=== PATIENT | male | born 1955 | race Hispanic/Latino ===

== ENCOUNTER 2020-08-28 17:39 | Inpatient (IN) | payer BC ==
[~2020-08-28 17:39] MED LIST: Iopamidol-370 76% 500 ML 1 ML ONE; PROPOFOL 200 MG/20 ML VIAL ONE; Rocuronium Bromide 10 MG/ML (10ML VIAL) ONE; Succinylcholine 200 MG/10 ml SYRINGE FS ONE
--- NOTE | 2020-08-28 19:28 | RAD ---
Frontal radiograph chest: 08/28/2020 COMPARISON: None HISTORY: Pain FINDINGS: There is groundglass opacity within the mid right lung zone/right perihilar region and with in both lung bases. Findings are suspicious for Covid pneumonia in the proper clinical setting. No pneumothorax, large volume pleural effusion, or focal consolidation. IMPRESSION: Ground glass opacity as above.
[2020-08-28 19:37] LABS: #Basophils 0.1 thou/uL (0.0-0.2); #Lymphocytes 0.7 thou/uL (1.20-3.40); #Monocytes 0.4 thou/uL (0.11-0.59); #Neutrophils 5.1 thou/uL (1.40-6.50); %Basophils 0.9 % (0.0-1.0); %Lymphocytes 11.7 % (21.0-51.0); %Monocytes 6.4 % (0.0-10.0); %Neutrophils 81.1 % (42.0-75.0); Hemoglobin 15.3 g/dL (14.0-18.0); Mean Corpuscular HGB CONC 34.1 g/dL (32.0-36.0); Mean Corpuscular Volume 91.1 fL (78.0-98.0); Mean Platelet Volume 9.8 fL (7.4-10.4); Platelet Count 135 thou/uL (130-400); RBC Distribution Width 13.3 % (11.5-14.5); Red Blood Cell (RBC) Count 4.92 mill/uL (4.70-6.10); White Blood Cell (WBC) Count 6.2 thou/uL (4.8-10.8)
[2020-08-28] MEDS ORDERED: cefTRIAXone\\ROCEPHIN 1 GM VIAL ONE (19:53)
[2020-08-28] MEDS ORDERED: Dexamethasone 4 mg/ml Vial ONE (19:53)
[2020-08-28 19:54] LABS: ALT (SGPT) 56 U/L (8-55); AST (SGOT) 72 U/L (5-34); Albumin 3.7 g/dL (3.4-4.8); Alkaline Phosphatase 79 U/L (40-110); Anion Gap 17 mmol/L (10-20); BUN (Urea Nitrogen) 23 mg/dL (8.4-25.7); Bilirubin, Total 0.7 mg/dL (0.2-1.2); Calc. Creatinine Clearance 0 mL/min (70-130); Calcium 8.6 mg/dL (7.8-10.44); Carbon Dioxide 27 mmol/L (23-31); Chloride 97 mmol/L (98-107); Globulin 3.4 g/dL (2.4-3.5); Glucose 267 mg/dL (80-115); Potassium 4.8 mmol/L (3.5-5.1); Protein, Total 7.1 g/dL (5.8-8.1); Sodium 136 mmol/L (136-145)
[2020-08-28 20:05] LABS: INR-International Normal Ratio 0.9; Prothrombin Time 12.6 sec (12.0-14.7)
[2020-08-28 20:06] LABS: PTT 33.9 sec (22.9-36.1)
[2020-08-28] MEDS ORDERED: Azithromycin 500 MG VIAL ONE (20:10)
--- NOTE | 2020-08-28 21:40 | CT ---
CT angiogram chest: 08/28/2020 COMPARISON: None HISTORY: Findings suspicious for Covid pneumonia on chest x-ray, dyspnea TECHNIQUE: Axial CT imaging at 2.5 mm intervals through the chest with IV contrast using CT angiogram protocol. Coronal and sagittal 3-D reformatted imaging obtained. FINDINGS: The visualized upper abdomen appears grossly unremarkable. No pleural, pericardial, or medi astinal fluid is seen. There is no significant mediastinal or hilar lymphadenopathy. No evidence for acute pulmonary arterial embolism. Extensive confluence areas of groundglass opacity noted bilaterally including the bilateral lower lob es, bilateral upper lobes, and the right middle lobe. Superimposed multi focal reticulonodular density is noted within bilateral upper lobes, right greater than left. There is no endobronchial lesion evident. Review of the osseous structures demonstrates no worrisome lytic or blastic bone lesions. IMPRESSION: No evidence for pulmonary arterial embolism. Extensive bilateral groundglass opacity, suspicious for extensive bilateral Covid pneumonia. In addit ion, there are reticulonodular densities within bilateral upper lobes, right greater than left, suspicious for atypical infectious pneumonitis but not typical of Covid pneumonia. This could signify additional superimposed bilateral upper lobe infectious pneumonitis, including atypical bacterial infection, fungal infection, etc. Metastatic disease is not fully excluded but unlikely given distrib ution. Recommend short-term follow-up imaging of the chest following treatment to document resolution.
[2020-08-28] MEDS ORDERED: Labetalol HCl 100 MG/20 ML VIAL SLOW IVP PRN (21:56)
[2020-08-28] MEDS ORDERED: cloNIDine 0.1 MG TAB PO PRN (21:56)
[2020-08-28] MEDS ORDERED: Ondansetron PF 4 MG/2 ML Vial IVP PRN (21:56)
[2020-08-28] MEDS ORDERED: Acetaminophen 325 MG TAB PO PRN (21:56)
[2020-08-28] MEDS ORDERED: Promethazine HCl 12.5 MG in Sodium Chloride 0.9% 50 ML IVPB PRN (21:56)
[2020-08-28] MEDS ORDERED: hydrALAZINE 20 MG/ML VIAL SLOW IVP PRN (21:56)
[2020-08-28] MEDS ORDERED: Electrolyte Replacement Protocol 1 EACH FS PRN (22:00)
--- NOTE | 2020-08-28 22:00 | PDOC.HHP ---
Hospitalist HPI - History of Present Illness Shortness of breath History of Present Illness: Patient is a 65 year old male with PMH of DM, HTN who presents for cough, shortness of breath, weakness, body aches. Symptoms started 5 days ago, patient went to visit his mother w/ covid last Thursday then developed symptoms on Thursday, was diagnosed w/ covid then. He had cough, and has developed worsening shortness of breath w exertion and now at rest. Has been checking his oxygen at home and states that it was in the 70s. No nausea, vomiting, diarrhea. Also has loss of taste and smell. No history of blood clots. Does not smoke. In ED, WBC 6.2, Cr 1.45, glucose 267, CXR w/ ground glass opacities concerning for covid, CTA w/ similar findings and repeat imaging at follow up recommended.patinet admitted for further workup and care. Hospitalist ROS - Review of Systems Constitutional: reports: fever, chills, sweats, weakness, malaise Eyes: denies: pain, vision change, conjunctivae inflammation, eyelid inflammatio n, redness, other ENT: denies: ear pain, ear discharge, nose pain, nose discharge, nose congestion, mouth pain, mouth swelling, throat pain, throat swelling, other Respiratory: reports: cough, shortness of breath. denies: dry, hemoptysis, SOB with excertion, pleuritic pain, sputum, wheezing, other Cardiovascular: denies: chest pain, palpitations, orthopnea, paroxysmal noc. dyspnea, edema, light headedness, other Gastrointestinal: denies: nausea, vomiting, abdominal pain, diarrhea, constipation, melena, hematochezia, other Genitourinary: denies: dysuria, frequency, incontinence, hematuria, retention, other Musculoskeletal: denies: neck pain, shoulder pain, arm pain, back pain, hand pain, leg pain, foot pain, other Skin: denies: rash, lesions, anika, bruising, other Neurological: denies: weakness, numbness, incoordination, change in speech, confusion, seizures, other All other systems reviewed; all pertinent +/- noted in HPI/Subj - Medication Medications: glimepiride tablet : Strength - 4 mg : ORAL Patient Dose: 2 times a day. lisinopril tablet : Strength - 10 mg : ORAL Patient Dose: once a day. Hospitalist History - Past Medical History Other Medical History: HTN, DM - Past Surgical History Past Surgical History: reports: no pertinent history - Family History Family History: reports: no pertinent history - Social History Smoking Status: Never smoker Alcohol: reports: None Drugs: reports: none - Exam General Appearance: NAD, awake alert Eye: PERRL, anicteric sclera ENT: normocephalic atraumatic, no oropharyngeal lesions, moist mucosa Neck: supple, symmetric, no JVD, no thyromegaly, no lymphadenopathy, no carotid bruit Heart: RRR, no murmur, no gallops, no rubs, normal peripheral pulses Respiratory: CTAB, no wheezes, no rales, no ronchi, normal chest expansion, no tachypnea, normal percussion Gastrointestinal: soft, non-tender, non-distended, normal bowel sounds, no palpable masses, no hepatomegaly, no splenomegaly, no bruit Extremities: no cyanosis, no clubbing, no edema Skin: normal turgor, no lesions, no rashes Neurological: cranial nerve grossly intact, normal sensation to touch, no weakness, no focal deficits, no new deficit Musculoskeletal: normal tone, normal strength, no muscle wasting Psychiatric: normal affect, normal behavior, A&O x 3 Hospitalist Results - Labs Result Diagrams: 08/28/20 19:06 08/28/20 19:06 Lab results: WBC 6.2 thou/uL (4.8-10.8) 08/28/20 19:06 Hgb 15.3 g/dL (14.0-18.0) 08/28/20 19:06 Hct 44.8 % (42.0-52.0) 08/28/20 19:06 MCV 91.1 fL (78.0-98.0) 08/28/20 19:06 Plt Count 135 thou/uL (130-400) 08/28/20 19:06 Neutrophils % 81.1 % (42.0-75.0) H 08/28/20 19:06 Sodium 136 mmol/L (136-145) 08/28/20 19:06 Potassium 4.8 mmol/L (3.5-5.1) 08/28/20 19:06 Chloride 97 mmol/L (98-107) L 08/28/20 19:06 Carbon Dioxide 27 mmol/L (23-31) 08/28/20 19:06 BUN 23 mg/dL (8.4-25.7) 08/28/20 19:06 Creatinine 1.45 mg/dL (0.7-1.3) H 08/28/20 19:06 Glucose 267 mg/dL (80-115) H 08/28/20 19:06 Lactic Acid 1.6 mmol/L (0.5-2.2) 08/28/20 19:48 Calcium 8.6 mg/dL (7.8-10.44) 08/28/20 19:06 Total Bilirubin 0.7 mg/dL (0.2-1.2) 08/28/20 19:06 AST 72 U/L (5-34) H 08/28/20 19:06 ALT 56 U/L (8-55) H 08/28/20 19:06 Alkaline Phosphatase 79 U/L (40-110) 08/28/20 19:06 Troponin I Less than 0.010 ng/mL (< 0.028) 08/28/20 19:06 Serum Total Protein 7.1 g/dL (5.8-8.1) 08/28/20 19:06 Albumin 3.7 g/dL (3.4-4.8) 08/28/20 19:06 Additional comment: VITAL SIGNS ThuAug 28, 2020 17:40 АЛЕКСАНДР Estrella, Mirlande BP: 140/73 Pulse: 112 Resp: 26 Temp: 99.3 (Oral) Pain: 5 O2 sat: 82 on (Room Air) Time: 08/28/2020 17:40. labs, imaging reports, ED documents reviewed Hospitalist H&P A/P - Plan Plan: Patient is a 65 year old male with PMH of DM, HTN who presents for cough, shortness of breath, weakness, body aches. # COVD 19 pneumonia # hypoxia symptoms x 5 days, SOB, cough, hypoxia to 70s on room air. - admit to floor - steroids, abx, monitor closely - ID consult to consider remdesivir - recommend repeat imaging as outpatient # YA - unknown baseline, trend Cr and treat if worsening # DM - not in insulin at home - ssi # DVT/GI ppx full code
[2020-08-28] MEDS ORDERED: Dextrose 50% Abboject 50 ML SYRINGE SLOW IVP PRN (22:33)
[2020-08-28] MEDS ORDERED: Dextrose 5% in Water 1,000 ML IV PRN (22:33)
[2020-08-29] MEDS: Guaifenesin DM 100-10/5 ML UDCUP PO PRN ×2 (00:31→22:55)
[2020-08-29] MEDS: Albuterol 200 PUFF (6.7GM INHALER) INH PRN ×2 (00:32→22:56)
[2020-08-29 05:54] LABS: #Lymphocytes 0.9 thou/uL (1.20-3.40); #Monocytes 0.2 thou/uL (0.11-0.59); #Neutrophils 3.4 thou/uL (1.40-6.50); %Eosinophils 0.1 % (0.0-10.0); %Lymphocytes 19.4 % (21.0-51.0); %Monocytes 3.9 % (0.0-10.0); %Neutrophils 76.7 % (42.0-75.0); Hemoglobin 14.2 g/dL (14.0-18.0); Mean Corpuscular HGB CONC 31.3 g/dL (32.0-36.0); Mean Corpuscular Hemoglobin 28.6 pg (27.0-31.0); Mean Corpuscular Volume 91.2 fL (78.0-98.0); Mean Platelet Volume 9.5 fL (7.4-10.4); Platelet Count 152 thou/uL (130-400); RBC Distribution Width 13.4 % (11.5-14.5); Red Blood Cell (RBC) Count 4.97 mill/uL (4.70-6.10); White Blood Cell (WBC) Count 4.4 thou/uL (4.8-10.8)
[2020-08-29] MEDS: HumaLOG 300 UNITS/3 ML VIAL SC PRN ×2 (06:03→11:08)
[2020-08-29 06:07] LABS: Anion Gap 17 mmol/L (10-20); BUN (Urea Nitrogen) 23 mg/dL (8.4-25.7); Calc. Creatinine Clearance 74 mL/min (70-130); Calcium 7.9 mg/dL (7.8-10.44); Carbon Dioxide 20 mmol/L (23-31); Chloride 101 mmol/L (98-107); Glucose 334 mg/dL (80-115); Magnesium 2.2 mg/dL (1.6-2.6); Sodium 133 mmol/L (136-145)
[2020-08-29] MEDS: Famotidine 20 MG TAB PO SCH ×2 (08:32→20:48)
[2020-08-29] MEDS ORDERED: REMDESIVIR (EUA) 200 MG in Sodium Chloride 0.9% 250 ML 210 ML IV SCH (15:15)
--- NOTE | 2020-08-29 15:21 | PDOC.HOSPP ---
- Subjective Encounter Date: 08/29/20 Encounter Time: 07:00 Subjective: Patient seen for follow-up regarding acute hypoxic respiratory failure. He denies chest pain. Reports shortness of breath with exertion. - Objective Vital Signs & Weight: Vital Signs (12 hours) Temp Pulse Resp BP Pulse Ox 08/29/20 11:00 98.4 F 84 18 133/71 96 08/29/20 08:45 98.4 F 86 20 120/65 90 L Weight Weight 194 lb 12.8 oz Result Diagrams: 08/29/20 05:18 08/29/20 05:18 Additional Labs: Accuchecks 08/29/20 08/29/20 10:33 05:36 POC Glucose 303 H 315 H Hospitalist ROS - Review of Systems Respiratory: reports: cough, dry, SOB with excertion. denies: shortness of breath, hemoptysis, pleuritic pain, sputum, wheezing Cardiovascular: denies: chest pain, palpitations, orthopnea, paroxysmal noc. dyspnea, edema, light headedness - Medication Medications: Active Medications Generic Name Dose Route Start Last Admin Trade Name Freq PRN Reason Stop Dose Admin Albuterol Sulfate 1 puff 08/28/20 22:48 08/29/20 00:32 Albuterol 200 Puff (6.7gm Inhaler) INH 1 puff Q4H PRN Administration SOB &/or Wheezing Famotidine 20 mg 08/29/20 09:00 08/29/20 08:32 Famotidine 20 Mg Tab PO 20 mg BID INGRID Administration Guaifenesin/Dextromethorphan 15 ml 08/28/20 21:56 08/29/20 00:31 Guaifenesin Dm 100-10/5 Ml Udcup PO 15 ml Q4H PRN Administration Cough Insulin Human Lispro 0 units 08/28/20 22:33 08/29/20 11:08 Humalog 300 Units/3 Ml Vial SC 5 unit .MILD SLIDING SCALE PRN Administration Mild Correctional Scale - Exam General Appearance: awake alert Eye: anicteric sclera ENT: moist mucosa Neck: supple Heart: RRR Respiratory: rhonchi Gastrointestinal: soft, non-tender Skin: no rashes Psychiatric: normal affect, normal behavior Hosp A/P - Plan - Plan Plan: Patient is a 65 year old male with PMH of DM, HTN who presents for cough, shortness of breath, weakness, body aches. # COVD 19 pneumonia #Acute hypoxic respiratory failure. - steroids, abx, monitor closely - pharm consult to consider remdesivir # YA - follow creatinine and lytes # DM - insulin sliding scale # DVT/GI ppx full code
[2020-08-29] MEDS ORDERED: Zinc Sulfate 220 MG CAP PO SCH (17:15)
[2020-08-29] MEDS ORDERED: HumaLOG 300 UNITS/3 ML VIAL SC SCH (17:15)
[2020-08-29] MEDS ORDERED: Ascorbic Acid 500 mg Chewable Tablet PO SCH (17:15)
--- NOTE | 2020-08-29 19:13 | CON ---
DATE OF CONSULTATION: 08/29/2020 REASON FOR CONSULT: COVID pneumonia. HISTORY OF PRESENT ILLNESS: A 65-year-old gentleman who has a history of type 2 diabetes, hypertension, and tested positive for COVID on Thursday last week. At that time, he was asymptomatic and he was tested because of exposure history. Two days later on Thursday, he started having cough and respiratory symptoms. Subsequently on the day of admission, he checked his O2 saturations. There were like in the 70s and he came in and was admitted. Currently, he is in the COVID observation unit. He denies headaches. No sore throat. Feeling better now. Can take deeper breaths and less cough. No abdominal pain, no diarrhea, no genitourinary symptoms. No neurological symptoms. PAST MEDICAL HISTORY: Diabetes and hypertension. ALLERGIES: NONE. MEDICATIONS: He was taking glimepiride, lisinopril. Here, he is on Decadron and azithromycin and some p.r.n. medications labetalol, etc., inhalers. FAMILY HISTORY: Diabetes type 2. SOCIAL HISTORY: Retired from [employer]. Never smoker. . got COVID but mild course thus far. PHYSICAL EXAMINATION: VITAL SIGNS: T-max 100, BP 130/71, heart rate 84, respiratory rate 18, O2 saturation 97 when I saw him at 6 L nasal cannula O2. GENERAL: He does not appear in distress. His is able to speak in full sentences. Voiding spontaneously in the toilet. SKIN: Normal. Peripheral IV access. No lymphadenopathy. HEENT: Ocular movements conjugate. Oral cavity normal. NECK: Supple. LUNGS: Few crackles at the bases. HEART: S1, S2. Regular rate. No S3 or S4. ABDOMEN: Soft, not distended or tender. No ascites. No bladder distention. No edema. EXTREMITIES: No joint inflammatory activity. Pulses 1+ in dorsalis pedis. Plantar responses are flexor. NEUROLOGIC: Cognitive function appears to be intact. LABORATORY DATA: Sodium 133, creatinine 1.26, which is improved from admission. Mild elevation in transaminases. Bilirubin normal. Albumin 3.7. D-dimer was 1.06. White cell count is 6.2 and 4.4 at this time. He is lymphocytopenic. His CT of chest showed quite diffuse ground-glass opacities throughout lung ramirez. ASSESSMENT: Type 2 diabetes and hypertension with moderate to severe COVID pneumonia. He is right at the 6th day of illness. I will go ahead and start remdesivir. He is a good candidate for it. Continue Decadron, discontinue azithromycin. Monitor markers every other day. His COTY score is 10.67, so he is in a safe range right now. Job ID: [id number] MTDD
[2020-08-29] MEDS: Enoxaparin Sodium 40 MG/0.4 ML SYRINGE SC SCH (20:48)
[2020-08-29] MEDS: Dexamethasone 4 mg/ml Vial SLOW IVP SCH (20:48)
[2020-08-29] MEDS: Insulin Glargine 10 UNITS in Pre-Filled Syringe SC SCH (20:49)
[2020-08-29] MEDS ORDERED: Azithromycin 500 MG in Sodium Chloride 0.9% 250 ML 250 ML IVPB SCH (21:00)
[2020-08-29] MEDS ORDERED: Azithromycin 500 MG in Syringe 0 ML IVPB SCH (21:00)
[2020-08-30 05:31] LABS: #Lymphocytes 0.7 thou/uL (1.20-3.40); #Monocytes 0.4 thou/uL (0.11-0.59); #Neutrophils 6.1 thou/uL (1.40-6.50); %Basophils 0.7 % (0.0-1.0); %Eosinophils 0.1 % (0.0-10.0); %Lymphocytes 9.4 % (21.0-51.0); Hemoglobin 14.4 g/dL (14.0-18.0); Mean Corpuscular HGB CONC 32.4 g/dL (32.0-36.0); Mean Corpuscular Hemoglobin 29.5 pg (27.0-31.0); Mean Platelet Volume 9.4 fL (7.4-10.4); Platelet Count 198 thou/uL (130-400); RBC Distribution Width 13.4 % (11.5-14.5); Red Blood Cell (RBC) Count 4.89 mill/uL (4.70-6.10); White Blood Cell (WBC) Count 7.3 thou/uL (4.8-10.8)
[2020-08-30 05:55] LABS: ALT (SGPT) 84 U/L (8-55); AST (SGOT) 78 U/L (5-34); Albumin 3.3 g/dL (3.4-4.8); Alkaline Phosphatase 73 U/L (40-110); Bilirubin, Direct 0.3 mg/dL (0.1-0.3); Bilirubin, Total 0.5 mg/dL (0.2-1.2); CRP (Inflammatory) 9.22 mg/dL (= or < 0.5); Protein, Total 6.4 g/dL (5.8-8.1)
[2020-08-30 05:56] LABS: Anion Gap 16 mmol/L (10-20); BUN (Urea Nitrogen) 28 mg/dL (8.4-25.7); Calc. Creatinine Clearance 75 mL/min (70-130); Calcium 8.4 mg/dL (7.8-10.44); Carbon Dioxide 25 mmol/L (23-31); Chloride 99 mmol/L (98-107); Glucose 299 mg/dL (80-115); Magnesium 2.3 mg/dL (1.6-2.6); Potassium 5.3 mmol/L (3.5-5.1); Sodium 135 mmol/L (136-145)
[2020-08-30] MEDS: HumaLOG 300 UNITS/3 ML VIAL SC PRN ×4 (06:20→21:39)
[2020-08-30] MEDS: Famotidine 20 MG TAB PO SCH (08:09)
[2020-08-30] MEDS: Ascorbic Acid 500 mg Chewable Tablet PO SCH (08:09)
[2020-08-30] MEDS: Zinc Sulfate 220 MG CAP PO SCH (08:10)
[2020-08-30] MEDS: REMDESIVIR (EUA) 100 MG in Sodium Chloride 0.9% 250 ML 230 ML IV SCH (16:54)
--- NOTE | 2020-08-30 17:08 | PDOC.HOSPP ---
- Subjective Encounter Date: 08/30/20 Encounter Time: 08:30 Subjective: Patient seen for follow-up regarding COVID-19 pneumonia. He denies chest pain. Reports shortness of breath is better. Reports cough. - Objective Vital Signs & Weight: Vital Signs (12 hours) Temp Pulse Resp BP Pulse Ox 08/30/20 15:30 98 F 83 20 109/56 L 91 L 08/30/20 11:32 98.4 F 96 138/79 91 L 08/30/20 08:15 98.5 F 92 20 132/73 92 L Weight Weight 194 lb 12.8 oz I&O: 08/29/20 08/30/20 08/31/20 06:59 06:59 06:59 Intake Total 1370 Balance 1370 Result Diagrams: 08/30/20 05:05 08/30/20 05:05 Additional Labs: Accuchecks 08/30/20 08/30/20 08/30/20 16:38 10:53 05:22 POC Glucose 258 H 310 H 256 H 08/29/20 20:32 POC Glucose 252 H I reviewed patient's labs and MAR EKG Reviewed by me: Yes (Normal sinus rhythm on telemetry) Hospitalist ROS - Review of Systems Respiratory: reports: cough, SOB with excertion, sputum. denies: dry, shortness of breath, hemoptysis, pleuritic pain, wheezing Cardiovascular: denies: chest pain, palpitations, paroxysmal noc. dyspnea, edema, light headedness - Medication Medications: Active Medications Generic Name Dose Route Start Last Admin Trade Name Freq PRN Reason Stop Dose Admin Albuterol Sulfate 1 puff 08/28/20 22:48 08/29/20 22:56 Albuterol 200 Puff (6.7gm Inhaler) INH 1 puff Q4H PRN Administration SOB &/or Wheezing Ascorbic Acid 1,000 mg 08/30/20 09:00 08/30/20 08:09 Ascorbic Acid 500 Mg Chewable Tablet PO 1,000 mg DAILY INGRID Administration Dexamethasone 6 mg 08/29/20 21:00 08/29/20 20:48 Dexamethasone 4 Mg/Ml Vial SLOW IVP 6 mg Q24H INGRID Administration Enoxaparin Sodium 40 mg 08/29/20 21:00 08/29/20 20:48 Enoxaparin Sodium 40 Mg/0.4 Ml Syringe SC 40 mg 2100 INGRID Administration Famotidine 20 mg 08/29/20 09:00 08/30/20 08:09 Famotidine 20 Mg Tab PO 20 mg BID INGRID Administration Guaifenesin/Dextromethorphan 15 ml 08/28/20 21:56 08/29/20 22:55 Guaifenesin Dm 100-10/5 Ml Udcup PO 15 ml Q4H PRN Administration Cough Remdesivir 100 mg/ Sodium 250 mls @ 250 mls/hr 08/30/20 16:00 08/30/20 16:54 Chloride IV 09/02/20 16:59 250 mls 1600 INGRID Administration Insulin Glargine 10 units/ 0.1 mls @ 0 mls/hr 08/29/20 21:00 08/29/20 20:49 Miscellaneous Medication SC 0.1 mls HS INGRID Administration Insulin Human Lispro 0 units 08/28/20 22:33 08/30/20 16:55 Humalog 300 Units/3 Ml Vial SC 4 unit .MILD SLIDING SCALE PRN Administration Mild Correctional Scale Zinc Sulfate 220 mg 08/30/20 09:00 08/30/20 08:10 Zinc Sulfate 220 Mg Cap PO 220 mg DAILY INGRID Administration - Exam General Appearance: awake alert ENT: normocephalic atraumatic Neck: supple Heart: RRR Respiratory: normal chest expansion, rhonchi Gastrointestinal: soft, non-tender Musculoskeletal: no muscle wasting Psychiatric: normal affect, normal behavior Hosp A/P - Plan - Plan # COVD 19 pneumonia #Acute hypoxic respiratory failure. -Continue dexamethasone, remdesivir, vitamin C and zinc. -Switch H2 eric to PPI # YA -creatinine improved # DM - insulin sliding scale #Hyponatremia -Mild, likely asymptomatic #Hyperkalemia Mild, administer Kayexalate and recheck. # DVT/GI ppx full code
[2020-08-30] MEDS: Enoxaparin Sodium 40 MG/0.4 ML SYRINGE SC SCH (21:41)
[2020-08-30] MEDS: Insulin Glargine 10 UNITS in Pre-Filled Syringe SC SCH (21:41)
[2020-08-30] MEDS: Guaifenesin DM 100-10/5 ML UDCUP PO PRN (21:41)
[2020-08-30] MEDS: Dexamethasone 4 mg/ml Vial SLOW IVP SCH (21:42)
[2020-08-31 05:14] LABS: #Lymphocytes 0.8 thou/uL (1.20-3.40); #Monocytes 0.5 thou/uL (0.11-0.59); #Neutrophils 6.1 thou/uL (1.40-6.50); %Basophils 0.2 % (0.0-1.0); %Eosinophils 0.1 % (0.0-10.0); %Lymphocytes 10.5 % (21.0-51.0); %Monocytes 6.3 % (0.0-10.0); %Neutrophils 82.9 % (42.0-75.0); Hemoglobin 14.4 g/dL (14.0-18.0); Mean Corpuscular HGB CONC 33.5 g/dL (32.0-36.0); Mean Corpuscular Hemoglobin 30.5 pg (27.0-31.0); Mean Platelet Volume 9.3 fL (7.4-10.4); Platelet Count 223 thou/uL (130-400); RBC Distribution Width 13.3 % (11.5-14.5); Red Blood Cell (RBC) Count 4.74 mill/uL (4.70-6.10); White Blood Cell (WBC) Count 7.4 thou/uL (4.8-10.8)
[2020-08-31 05:33] LABS: ALT (SGPT) 62 U/L (8-55); AST (SGOT) 34 U/L (5-34); Albumin 3.2 g/dL (3.4-4.8); Alkaline Phosphatase 81 U/L (40-110); Bilirubin, Direct 0.3 mg/dL (0.1-0.3); Bilirubin, Total 0.5 mg/dL (0.2-1.2); CRP (Inflammatory) 4.51 mg/dL (= or < 0.5); Protein, Total 6.1 g/dL (5.8-8.1)
[2020-08-31 05:34] LABS: Anion Gap 17 mmol/L (10-20); BUN (Urea Nitrogen) 31 mg/dL (8.4-25.7); Calc. Creatinine Clearance 84 mL/min (70-130); Carbon Dioxide 23 mmol/L (23-31); Chloride 100 mmol/L (98-107); Glucose 301 mg/dL (80-115); Magnesium 2.4 mg/dL (1.6-2.6); Potassium 4.7 mmol/L (3.5-5.1); Sodium 135 mmol/L (136-145)
[2020-08-31] MEDS: HumaLOG 300 UNITS/3 ML VIAL SC PRN ×3 (06:00→17:30)
[2020-08-31] MEDS: Ascorbic Acid 500 mg Chewable Tablet PO SCH (08:53)
[2020-08-31] MEDS: Zinc Sulfate 220 MG CAP PO SCH (08:53)
[2020-08-31] MEDS: REMDESIVIR (EUA) 100 MG in Sodium Chloride 0.9% 250 ML 230 ML IV SCH (17:17)
--- NOTE | 2020-08-31 19:26 | PDOC.HOSPP ---
- Subjective Encounter Date: 08/31/20 Encounter Time: 08:30 Subjective: Patient seen in follow-up for COVID-19 pneumonia. He denies any complaints at this time. - Objective Vital Signs & Weight: Vital Signs (12 hours) Temp Pulse Resp BP Pulse Ox 08/31/20 17:10 98.6 F 76 15 125/57 L 90 L 08/31/20 14:10 92 L 08/31/20 10:40 97.9 F 82 16 131/86 92 L 08/31/20 08:00 98 F 76 16 111/69 91 L Weight Weight 194 lb 12.8 oz I&O: 08/30/20 08/31/20 09/01/20 06:59 06:59 06:59 Intake Total 1370 1940 970 Output Total 1200 400 Balance 1370 740 570 Result Diagrams: 08/31/20 04:44 08/31/20 04:44 Additional Labs: Accuchecks 08/31/20 08/31/20 08/31/20 17:10 10:51 05:40 POC Glucose 239 H 301 H 303 H 08/30/20 20:30 POC Glucose 246 H Hospitalist ROS - Medication Medications: Active Medications Generic Name Dose Route Start Last Admin Trade Name Freq PRN Reason Stop Dose Admin Albuterol Sulfate 1 puff 08/28/20 22:48 08/29/20 22:56 Albuterol 200 Puff (6.7gm Inhaler) INH 1 puff Q4H PRN Administration SOB &/or Wheezing Ascorbic Acid 1,000 mg 08/30/20 09:00 08/31/20 08:53 Ascorbic Acid 500 Mg Chewable Tablet PO 1,000 mg DAILY INGRID Administration Dexamethasone 6 mg 08/29/20 21:00 08/30/20 21:42 Dexamethasone 4 Mg/Ml Vial SLOW IVP 6 mg Q24H INGRID Administration Enoxaparin Sodium 40 mg 08/29/20 21:00 08/30/20 21:41 Enoxaparin Sodium 40 Mg/0.4 Ml Syringe SC 40 mg 2100 INGRID Administration Guaifenesin/Dextromethorphan 15 ml 08/28/20 21:56 08/30/20 21:41 Guaifenesin Dm 100-10/5 Ml Udcup PO 15 ml Q4H PRN Administration Cough Remdesivir 100 mg/ Sodium 250 mls @ 250 mls/hr 08/30/20 16:00 08/31/20 17:17 Chloride IV 09/02/20 16:59 250 mls 1600 INGRID Administration Insulin Glargine 10 units/ 0.1 mls @ 0 mls/hr 08/29/20 21:00 08/30/20 21:41 Miscellaneous Medication SC 0.1 mls HS INGRID Administration Insulin Human Lispro 0 units 08/28/20 22:33 08/31/20 17:30 Humalog 300 Units/3 Ml Vial SC 3 unit .MILD SLIDING SCALE PRN Administration Mild Correctional Scale Insulin Human Lispro 0 units 08/30/20 01:38 08/30/20 21:39 Humalog 300 Units/3 Ml Vial SC 3 unit .BEDTIME SLIDING SC PRN Administration Bedtime Correctional Scale Pantoprazole Sodium 40 mg 08/31/20 09:00 08/31/20 08:53 Pantoprazole 40 Mg Tab PO 40 mg DAILY INGRID Administration Zinc Sulfate 220 mg 08/30/20 09:00 08/31/20 08:53 Zinc Sulfate 220 Mg Cap PO 220 mg DAILY INGRID Administration Hosp A/P - Plan Patient is a pleasant 65-year-old gentleman who was admitted to the hospital on August 28, 2020 for COVID-19 pneumonia. He has been seen by infectious diseases physician. He is currently on dexamethasone, vitamin C, zinc and remdesivir. Blood sugars continue to be high, insulin will need to be titrated. - Plan # COVD 19 pneumonia #Acute hypoxic respiratory failure. -Patient is on dexamethasone, remdesivir, vitamin C and zinc. -Continue PPI # YA -Resolved # DM -Blood sugar still high, increase Lantus to 15 units at bedtime. #Hyponatremia -Mild, likely asymptomatic #Hyperkalemia Resolved # DVT/GI ppx full code
[2020-08-31] MEDS: Dexamethasone 4 mg/ml Vial SLOW IVP SCH (19:29)
[2020-08-31] MEDS: Enoxaparin Sodium 40 MG/0.4 ML SYRINGE SC SCH (19:30)
[2020-08-31] MEDS: Insulin Glargine 15 UNITS in Pre-Filled Syringe 1 EACH SC SCH (20:58)
[2020-09-01 05:46] LABS: ALT (SGPT) 46 U/L (8-55); AST (SGOT) 21 U/L (5-34); Albumin 3.1 g/dL (3.4-4.8); Alkaline Phosphatase 82 U/L (40-110); Anion Gap 14 mmol/L (10-20); BUN (Urea Nitrogen) 25 mg/dL (8.4-25.7); Bilirubin, Direct 0.3 mg/dL (0.1-0.3); Bilirubin, Total 0.6 mg/dL (0.2-1.2); CRP (Inflammatory) 2.16 mg/dL (= or < 0.5); Calc. Creatinine Clearance 84 mL/min (70-130); Calcium 7.9 mg/dL (7.8-10.44); Carbon Dioxide 25 mmol/L (23-31); Chloride 101 mmol/L (98-107); Glucose 327 mg/dL (80-115); Potassium 4.5 mmol/L (3.5-5.1); Protein, Total 5.7 g/dL (5.8-8.1); Sodium 135 mmol/L (136-145)
[2020-09-01] MEDS: HumaLOG 300 UNITS/3 ML VIAL SC PRN ×3 (06:01→17:57)
[2020-09-01] MEDS: Ascorbic Acid 500 mg Chewable Tablet PO SCH (08:00)
[2020-09-01] MEDS: Zinc Sulfate 220 MG CAP PO SCH (08:58)
--- NOTE | 2020-09-01 10:20 | EKG ---
Test Reason : COVID Blood Pressure : / mmHG Vent. Rate : 111 BPM Atrial Rate : 111 BPM P-R Int : 166 ms QRS Dur : 092 ms QT Int : 318 ms P-R-T Axes : 027 -02 021 degrees QTc Int : 432 ms Sinus tachycardia Otherwise normal ECG Confirmed by HIMA GRANT [id number]), magazine editor ANGELA AVILA ([id number] on 09/01/2020 10:20:14 AM Referred By: Confirmed By:HIMA Escobedo
--- NOTE | 2020-09-01 15:25 | PDOC.HOSPP ---
- Subjective Encounter Date: 09/01/20 Encounter Time: 14:30 Subjective: F/u: COVID The patient is doing okay. He has intermittent cough, not sure if it is dry or wet. He states he tries to sit up as much as he can, but does not walk. While sitting up and talking he desaturated to 88% on 6L nasal cannula. He states his mother got COVID first then the rest of his family - Objective Vital Signs & Weight: Vital Signs (12 hours) Temp Pulse Resp BP Pulse Ox 09/01/20 12:00 98 F 72 16 110/59 L 96 09/01/20 07:52 98.5 F 72 16 104/57 L 90 L 09/01/20 03:30 98.6 F 73 16 121/58 L 90 L Weight Weight 194 lb 12.8 oz I&O: 08/31/20 09/01/20 09/02/20 06:59 06:59 06:59 Intake Total 1940 1320 Output Total 1200 900 Balance 740 420 Result Diagrams: 08/31/20 04:44 09/01/20 04:55 Additional Labs: Accuchecks 09/01/20 08/31/20 10:16 17:10 POC Glucose 239 H 239 H Hospitalist ROS - Review of Systems Constitutional: denies: fever, chills - Medication Medications: Active Medications Generic Name Dose Route Start Last Admin Trade Name Freq PRN Reason Stop Dose Admin Albuterol Sulfate 1 puff 08/28/20 22:48 08/29/20 22:56 Albuterol 200 Puff (6.7gm Inhaler) INH 1 puff Q4H PRN Administration SOB &/or Wheezing Ascorbic Acid 1,000 mg 08/30/20 09:00 09/01/20 08:00 Ascorbic Acid 500 Mg Chewable Tablet PO 1,000 mg DAILY INGRID Administration Dexamethasone 6 mg 08/29/20 21:00 08/31/20 19:29 Dexamethasone 4 Mg/Ml Vial SLOW IVP 6 mg Q24H INGRID Administration Enoxaparin Sodium 40 mg 08/29/20 21:00 08/31/20 19:30 Enoxaparin Sodium 40 Mg/0.4 Ml Syringe SC 40 mg 2100 INGRID Administration Guaifenesin/Dextromethorphan 15 ml 08/28/20 21:56 08/30/20 21:41 Guaifenesin Dm 100-10/5 Ml Udcup PO 15 ml Q4H PRN Administration Cough Remdesivir 100 mg/ Sodium 250 mls @ 250 mls/hr 08/30/20 16:00 08/31/20 17:17 Chloride IV 09/02/20 16:59 250 mls 1600 INGRID Administration Insulin Glargine 15 units/ 0.15 mls @ 0 mls/hr 08/31/20 21:00 08/31/20 20:58 Miscellaneous Medication SC 0.15 mls HS INGRID Administration Insulin Human Lispro 0 units 08/28/20 22:33 09/01/20 11:20 Humalog 300 Units/3 Ml Vial SC 3 unit .MILD SLIDING SCALE PRN Administration Mild Correctional Scale Insulin Human Lispro 0 units 08/30/20 01:38 08/30/20 21:39 Humalog 300 Units/3 Ml Vial SC 3 unit .BEDTIME SLIDING SC PRN Administration Bedtime Correctional Scale Pantoprazole Sodium 40 mg 08/31/20 09:00 09/01/20 08:57 Pantoprazole 40 Mg Tab PO 40 mg DAILY INGRID Administration Zinc Sulfate 220 mg 08/30/20 09:00 09/01/20 08:58 Zinc Sulfate 220 Mg Cap PO 220 mg DAILY INGRID Administration - Exam General Appearance: NAD, awake alert Eye: PERRL, anicteric sclera ENT: normocephalic atraumatic, no oropharyngeal lesions Neck: no JVD Heart: RRR, no murmur, no gallops, no rubs Respiratory: CTAB, no wheezes, no rales, no ronchi Gastrointestinal: soft, non-tender, non-distended, normal bowel sounds Extremities: no cyanosis, no clubbing, no edema Skin: normal turgor, no lesions, no rashes Neurological: cranial nerve grossly intact, normal sensation to touch, no weakness Hosp A/P - Plan CTA thorax: extensive bilateral ground glass opacity This is a 65 year old male who presented with cough, shortness of breath and body aches. He presented with respiratory failure and admitted for COVID pneumonia Acute hypoxic respiratory failure secondary to COVID - patient is on 6L of oxygen, still hypoxic to 88%. No fever or WBC currently. Continue to wean oxygen to maintain sat > 92% - continue remdesivir day until 09/02. Continue Iv dexamethasone - will order physical therapy Type II diabetes - blood sugars 200-300. Continue lantus 10 units qhs. Will add 5 units qam Hypertension- controlled - BP 100-110 without lisinopril
[2020-09-01] MEDS: REMDESIVIR (EUA) 100 MG in Sodium Chloride 0.9% 250 ML 230 ML IV SCH (17:01)
[2020-09-01] MEDS ORDERED: Aspirin 325 MG TAB PO SCH (18:15)
--- NOTE | 2020-09-01 18:41 | RAD ---
PORTABLE CHEST ONE VIEW: 09/01/20 at 6:24 p.m. HISTORY: Worsening hypoxia, COVID positive. COMPARISON: 08/28/20. FINDINGS: The heart size is borderline. Patchy ground glass opacities are again seen. No pneumothoraces or pleu ral effusions are identified. IMPRESSION: Stable exam. Findings suspicious for COVID-19 pneumonia. POS: OFF
[2020-09-01] MEDS: Insulin Glargine 15 UNITS in Pre-Filled Syringe 1 EACH SC SCH (20:56)
[2020-09-01] MEDS: Insulin Glargine 5 UNITS in Pre-Filled Syringe 1 EACH SC SCH (20:58)
[2020-09-01] MEDS: Enoxaparin Sodium 40 MG/0.4 ML SYRINGE SC SCH (21:06)
[2020-09-01] MEDS: Dexamethasone 4 mg/ml Vial SLOW IVP SCH (21:07)
[2020-09-02 05:32] LABS: ALT (SGPT) 47 U/L (8-55); AST (SGOT) 32 U/L (5-34); Alkaline Phosphatase 89 U/L (40-110); Anion Gap 16 mmol/L (10-20); BUN (Urea Nitrogen) 21 mg/dL (8.4-25.7); Bilirubin, Direct 0.3 mg/dL (0.1-0.3); Bilirubin, Total 0.7 mg/dL (0.2-1.2); CRP (Inflammatory) 6.46 mg/dL (= or < 0.5); Calc. Creatinine Clearance 98 mL/min (70-130); Calcium 8.1 mg/dL (7.8-10.44); Carbon Dioxide 19 mmol/L (23-31); Chloride 105 mmol/L (98-107); Glucose 243 mg/dL (80-115); Potassium 4.8 mmol/L (3.5-5.1); Protein, Total 5.9 g/dL (5.8-8.1); Sodium 135 mmol/L (136-145)
[2020-09-02] MEDS: HumaLOG 300 UNITS/3 ML VIAL SC PRN ×3 (06:26→16:35)
[2020-09-02] MEDS: Aspirin 325 MG TAB PO SCH (09:53)
[2020-09-02] MEDS: Insulin Glargine 5 UNITS in Pre-Filled Syringe 1 EACH SC SCH (12:18)
[2020-09-02] MEDS: Zinc Sulfate 220 MG CAP PO SCH (12:54)
[2020-09-02] MEDS: Ascorbic Acid 500 mg Chewable Tablet PO SCH (12:54)
[2020-09-02] MEDS ORDERED: Simethicone Chewable 80 MG TAB PO PRN (13:05)
[2020-09-02] MEDS ORDERED: Calcium Carbonate 500 MG ChewTAB PO PRN (13:05)
--- NOTE | 2020-09-02 13:07 | PDOC.HOSPP ---
- Subjective Encounter Date: 09/02/20 Encounter Time: 13:06 Subjective: F/u:COVID The patient is up to 15L of oxygen. He desaturates with minimal movement to the70's and then recovers to the 90's after a few minutes. The patient feels congested. He coughed up yellow phlegm. He also complains of indigestion and difficulty belching - Objective Vital Signs & Weight: Vital Signs (12 hours) Temp Pulse Resp BP Pulse Ox 09/02/20 11:31 98.6 F 96 18 138/78 95 09/02/20 08:00 98.4 F 82 18 148/74 H 99 09/02/20 02:55 98.0 F 85 22 H 166/81 H 97 Weight Weight 194 lb 12.8 oz I&O: 09/01/20 09/02/20 09/03/20 06:59 06:59 06:59 Intake Total 1320 800 Output Total 900 1190 Balance 420 -390 Result Diagrams: 08/31/20 04:44 09/02/20 04:58 Additional Labs: Accuchecks 09/02/20 09/02/20 09/01/20 10:26 05:45 20:15 POC Glucose 164 H 225 H 197 H 09/01/20 16:34 POC Glucose 223 H Hospitalist ROS - Review of Systems Constitutional: denies: fever, chills - Medication Medications: Active Medications Generic Name Dose Route Start Last Admin Trade Name Freq PRN Reason Stop Dose Admin Albuterol Sulfate 1 puff 08/28/20 22:48 08/29/20 22:56 Albuterol 200 Puff (6.7gm Inhaler) INH 1 puff Q4H PRN Administration SOB &/or Wheezing Ascorbic Acid 1,000 mg 08/30/20 09:00 09/02/20 12:54 Ascorbic Acid 500 Mg Chewable Tablet PO 1,000 mg DAILY INGRID Administration Aspirin 325 mg 09/02/20 09:00 09/02/20 09:53 Aspirin 325 Mg Tab PO 325 mg DAILY INGRID Administration Dexamethasone 6 mg 08/29/20 21:00 09/01/20 21:07 Dexamethasone 4 Mg/Ml Vial SLOW IVP 6 mg Q24H INGRID Administration Enoxaparin Sodium 40 mg 08/29/20 21:00 09/01/20 21:06 Enoxaparin Sodium 40 Mg/0.4 Ml Syringe SC 40 mg 2100 INGRID Administration Guaifenesin/Dextromethorphan 15 ml 08/28/20 21:56 08/30/20 21:41 Guaifenesin Dm 100-10/5 Ml Udcup PO 15 ml Q4H PRN Administration Cough Remdesivir 100 mg/ Sodium 250 mls @ 250 mls/hr 08/30/20 16:00 09/01/20 17:01 Chloride IV 09/02/20 16:59 250 mls 1600 INGRID Administration Insulin Glargine 15 units/ 0.15 mls @ 0 mls/hr 08/31/20 21:00 09/01/20 20:56 Miscellaneous Medication SC 0.15 mls HS INGRID Administration Insulin Glargine 5 units/ 0.05 mls @ 0 mls/hr 09/01/20 09:00 09/02/20 12:18 Miscellaneous Medication SC 0.05 mls QAM INGRID Administration Insulin Human Lispro 0 units 08/28/20 22:33 09/02/20 12:19 Humalog 300 Units/3 Ml Vial SC 2 unit .MILD SLIDING SCALE PRN Administration Mild Correctional Scale Insulin Human Lispro 0 units 08/30/20 01:38 08/30/20 21:39 Humalog 300 Units/3 Ml Vial SC 3 unit .BEDTIME SLIDING SC PRN Administration Bedtime Correctional Scale Pantoprazole Sodium 40 mg 08/31/20 09:00 09/02/20 09:53 Pantoprazole 40 Mg Tab PO 40 mg DAILY INGRID Administration Zinc Sulfate 220 mg 08/30/20 09:00 09/02/20 12:54 Zinc Sulfate 220 Mg Cap PO 220 mg DAILY INGRID Administration - Exam General Appearance: NAD, awake alert General - other findings: appears fatigued, on 15L oxygen Eye: PERRL, anicteric sclera ENT: normocephalic atraumatic, no oropharyngeal lesions Neck: supple, symmetric, no JVD, no thyromegaly Heart: RRR, no murmur, no gallops, no rubs Respiratory - other findings: diminished breath sounds Gastrointestinal: soft, non-tender, non-distended, normal bowel sounds Extremities: no cyanosis, no clubbing, no edema Hosp A/P - Plan CTA thorax: extensive bilateral ground glass opacity Chest x ray 09/01: patchy ground glass opacities This is a 65 year old male who presented with cough, shortness of breath and body aches. He presented with respiratory failure and admitted for COVID pneu monia Acute hypoxic respiratory failure secondary to COVID - patient's oxygen requirement is worsening. Repeat chest Xray 09/01 showed ground glass opacities. He is on day 5 remdesivir - will order convalescent plasma - will add IV zosyn for antibiotic. Check sputum culture. Continue IV steroids - continue PT Type II diabetes - blood sugars 200-300. Increase lantus to 17 units qhs and continue 5 units qam Hypertension- controlled - BP 100-110 without lisinopril
[2020-09-02 13:28] LABS: Hemoglobin 15.7 g/dL (14.0-18.0); Mean Corpuscular HGB CONC 34.1 g/dL (32.0-36.0); Mean Corpuscular Hemoglobin 30.9 pg (27.0-31.0); Mean Corpuscular Volume 90.8 fL (78.0-98.0); Mean Platelet Volume 8.5 fL (7.4-10.4); Platelet Count 287 thou/uL (130-400); RBC Distribution Width 13.2 % (11.5-14.5); Red Blood Cell (RBC) Count 5.06 mill/uL (4.70-6.10); White Blood Cell (WBC) Count 13.4 thou/uL (4.8-10.8)
[2020-09-02] MEDS: REMDESIVIR (EUA) 100 MG in Sodium Chloride 0.9% 250 ML 230 ML IV SCH (16:23)
[2020-09-02] MEDS: Piperacillin/Tazobactam 3.375 GM in Sodium Chloride 0.9% 100 ML IVPB SCH ×2 (17:56→21:09)
[2020-09-02] MEDS: Enoxaparin Sodium 40 MG/0.4 ML SYRINGE SC SCH (20:47)
[2020-09-02] MEDS: Dexamethasone 4 mg/ml Vial SLOW IVP SCH (21:08)
[2020-09-02] MEDS: Famotidine/PF 20 mg/2ml Vial SLOW IVP SCH (21:09)
[2020-09-02] MEDS: Insulin Glargine 17 UNITS in Pre-Filled Syringe 1 EACH SC SCH (21:09)
[2020-09-03] MEDS: Piperacillin/Tazobactam 3.375 GM in Sodium Chloride 0.9% 100 ML IVPB SCH ×4 (02:54→20:35)
[2020-09-03] MEDS: HumaLOG 300 UNITS/3 ML VIAL SC PRN ×2 (05:56→11:45)
[2020-09-03] MEDS: Insulin Glargine 5 UNITS in Pre-Filled Syringe 1 EACH SC SCH (09:06)
[2020-09-03] MEDS: Zinc Sulfate 220 MG CAP PO SCH (09:08)
[2020-09-03] MEDS: Ascorbic Acid 500 mg Chewable Tablet PO SCH (09:08)
[2020-09-03] MEDS: Aspirin 325 MG TAB PO SCH (09:09)
--- NOTE | 2020-09-03 14:47 | PDOC.HOSPP ---
- Subjective Encounter Date: 09/03/20 Encounter Time: 13:00 Subjective: F/u: COVID The patient states his mother today of COVID and he is upset about that. The patient has not gotten convalescent plasma yet, states that they are in the process of checking with his son ? Patient is unsure if he wants the transfusion or not because he does not completely understand the treatment even after explaining According to the nurse, the patient desaturates a lot with the smallest movement , but quickly recovers. He does have phlegm . Sputum culture yesterday showed saliva so they are redoing the test - Objective Vital Signs & Weight: Vital Signs (12 hours) Temp Pulse Resp BP Pulse Ox 09/03/20 12:00 97.8 F 85 22 H 143/69 H 09/03/20 11:00 97.8 F 85 22 H 143/69 H 94 L 09/03/20 08:00 98.4 F 86 20 156/72 H 96 09/03/20 04:35 97.5 F L 90 34 H 137/71 94 L 09/03/20 02:54 98.4 F 77 22 H 116/58 L 98 Weight Weight 194 lb 12.8 oz I&O: 09/02/20 09/03/20 09/04/20 06:59 06:59 06:59 Intake Total 800 680 Output Total 1190 1350 Balance -390 -670 Result Diagrams: 09/02/20 13:18 09/02/20 04:58 Additional Labs: Accuchecks 09/03/20 09/03/20 09/02/20 10:51 04:41 20:49 POC Glucose 167 H 227 H 143 H 09/02/20 08/31/20 16:32 19:34 POC Glucose 170 H 172 H Hospitalist ROS - Review of Systems Constitutional: denies: fever - Medication Medications: Active Medications Generic Name Dose Route Start Last Admin Trade Name Freq PRN Reason Stop Dose Admin Acetaminophen 650 mg 08/28/20 21:56 09/03/20 04:27 Acetaminophen 325 Mg Tab PO 650 mg Q4H PRN Administration Headache/Fever/Mild Pain (1-3) Albuterol Sulfate 1 puff 08/28/20 22:48 08/29/20 22:56 Albuterol 200 Puff (6.7gm Inhaler) INH 1 puff Q4H PRN Administration SOB &/or Wheezing Ascorbic Acid 1,000 mg 08/30/20 09:00 09/03/20 09:08 Ascorbic Acid 500 Mg Chewable Tablet PO 1,000 mg DAILY INGRID Administration Aspirin 325 mg 09/02/20 09:00 09/03/20 09:09 Aspirin 325 Mg Tab PO 325 mg DAILY INGRID Administration Dexamethasone 6 mg 08/29/20 21:00 09/02/20 21:08 Dexamethasone 4 Mg/Ml Vial SLOW IVP 6 mg Q24H INGRID Administration Enoxaparin Sodium 40 mg 08/29/20 21:00 09/02/20 20:47 Enoxaparin Sodium 40 Mg/0.4 Ml Syringe SC 40 mg 2100 INGRID Administration Famotidine 20 mg 09/02/20 21:00 09/02/20 21:09 Famotidine/Pf 20 Mg/2ml Vial SLOW IVP 20 mg HS INGRID Administration Guaifenesin/Dextromethorphan 15 ml 08/28/20 21:56 08/30/20 21:41 Guaifenesin Dm 100-10/5 Ml Udcup PO 15 ml Q4H PRN Administration Cough Insulin Glargine 5 units/ 0.05 mls @ 0 mls/hr 09/01/20 09:00 09/03/20 09:06 Miscellaneous Medication SC 0.05 mls QAM INGRID Administration Piperacillin Sod/Tazobactam 100 mls @ 200 mls/hr 09/02/20 14:00 09/03/20 14:33 Sod 3.375 gm/ Sodium Chloride IVPB 100 mls 0200,0800,1400,2000 INGRID Administration Insulin Glargine 17 units/ 0.17 mls @ 0 mls/hr 09/02/20 21:00 09/02/20 21:09 Miscellaneous Medication SC 0.17 mls HS INGRID Administration Insulin Human Lispro 0 units 08/28/20 22:33 09/03/20 11:45 Humalog 300 Units/3 Ml Vial SC 2 unit .MILD SLIDING SCALE PRN Administration Mild Correctional Scale Insulin Human Lispro 0 units 08/30/20 01:38 08/30/20 21:39 Humalog 300 Units/3 Ml Vial SC 3 unit .BEDTIME SLIDING SC PRN Administration Bedtime Correctional Scale Pantoprazole Sodium 40 mg 08/31/20 09:00 09/03/20 09:08 Pantoprazole 40 Mg Tab PO 40 mg DAILY INGRID Administration Zinc Sulfate 220 mg 08/30/20 09:00 09/03/20 09:08 Zinc Sulfate 220 Mg Cap PO 220 mg DAILY INGRID Administration - Exam General Appearance: NAD, awake alert General - other findings: skin color appears better Eye: PERRL, anicteric sclera ENT: normocephalic atraumatic, no oropharyngeal lesions Neck: no JVD Heart: RRR, no murmur, no gallops, no rubs Respiratory: CTAB, no wheezes, no rales, no ronchi Gastrointestinal: soft, non-tender, non-distended, normal bowel sounds Extremities: no cyanosis, no clubbing, no edema Skin: normal turgor, no lesions, no rashes Neurological: cranial nerve grossly intact, normal sensation to touch, no weakness Hosp A/P - Plan CTA thorax: extensive bilateral ground glass opacity Chest x ray 09/01: patchy ground glass opacities This is a 65 year old male who presented with cough, shortness of breath and body aches. He presented with respiratory failure and admitted for COVID pneumonia Acute hypoxic respiratory failure secondary to COVID - patient's is still on a venturi mask. Repeat chest Xray 09/01 showed ground glass opacities. He is s/p 5 days of remdesivir - convalescent plasma ordered, but not yet given yet . Continue Iv zosyn day 2 and IV steroids Type II diabetes - blood sugars 160-220. Continue lantus to 17 units qhs and continue 5 units qam Hypertension- controlled - BP 100-110 without lisinopril
[2020-09-03] MEDS: Insulin Glargine 17 UNITS in Pre-Filled Syringe 1 EACH SC SCH (20:35)
[2020-09-03] MEDS: Dexamethasone 4 mg/ml Vial SLOW IVP SCH (20:36)
[2020-09-03] MEDS: Enoxaparin Sodium 40 MG/0.4 ML SYRINGE SC SCH (20:36)
[2020-09-03] MEDS: Famotidine/PF 20 mg/2ml Vial SLOW IVP SCH (20:37)
[2020-09-04] MEDS: Piperacillin/Tazobactam 3.375 GM in Sodium Chloride 0.9% 100 ML IVPB SCH ×3 (01:13→22:56)
[2020-09-04] MEDS: Insulin Glargine 5 UNITS in Pre-Filled Syringe 1 EACH SC SCH (09:56)
[2020-09-04] MEDS: Aspirin 325 MG TAB PO SCH (09:59)
[2020-09-04] MEDS: Ascorbic Acid 500 mg Chewable Tablet PO SCH (09:59)
[2020-09-04] MEDS: Zinc Sulfate 220 MG CAP PO SCH (09:59)
[2020-09-04] MEDS: HumaLOG 300 UNITS/3 ML VIAL SC PRN (12:17)
--- NOTE | 2020-09-04 12:42 | PDOC.HOSPP ---
- Subjective Encounter Date: 09/04/20 Encounter Time: 12:00 Subjective: F/u: COVID The patient is still desaturating to 83 on nasal cannula. He will be placed on high nasal cannula. He states he feels slightly better but is frustrated that he can't move much in the bed without desaturating. He is trying to do exercises. Encouraged him to use the incentive spirometer as much as possible He got convalescent plasma yesterday 09/03 - Objective Vital Signs & Weight: Vital Signs (12 hours) Temp Pulse Pulse Resp BP BP Pulse Ox 09/04/20 11:48 98 09/04/20 11:29 98.0 F 100 24 H 119/60 88 L 09/04/20 08:45 88 L 09/04/20 08:00 98 F 87 18 146/71 H 86 L 09/04/20 04:07 98.1 F 86 24 H 143/69 H 96 09/04/20 02:25 97.4 F L 95 26 H 137/75 96 09/04/20 02:10 97.4 F L 96 24 H 134/68 93 L Weight Weight 194 lb 12.8 oz I&O: 09/03/20 09/04/20 09/05/20 06:59 06:59 06:59 Intake Total 680 780 150 Output Total 1350 900 Balance -670 -120 150 Result Diagrams: 09/02/20 13:18 09/02/20 04:58 Additional Labs: Accuchecks 09/04/20 09/04/20 09/03/20 11:13 05:22 20:48 POC Glucose 246 H 157 H 140 H 09/03/20 16:47 POC Glucose 79 Hospitalist ROS - Review of Systems Constitutional: denies: fever, chills - Medication Medications: Active Medications Generic Name Dose Route Start Last Admin Trade Name Freq PRN Reason Stop Dose Admin Acetaminophen 650 mg 08/28/20 21:56 09/03/20 04:27 Acetaminophen 325 Mg Tab PO 650 mg Q4H PRN Administration Headache/Fever/Mild Pain (1-3) Albuterol Sulfate 1 puff 08/28/20 22:48 08/29/20 22:56 Albuterol 200 Puff (6.7gm Inhaler) INH 1 puff Q4H PRN Administration SOB &/or Wheezing Ascorbic Acid 1,000 mg 08/30/20 09:00 09/04/20 09:59 Ascorbic Acid 500 Mg Chewable Tablet PO 1,000 mg DAILY INGRID Administration Aspirin 325 mg 09/02/20 09:00 09/04/20 09:59 Aspirin 325 Mg Tab PO 325 mg DAILY INGRID Administration Dexamethasone 6 mg 08/29/20 21:00 09/03/20 20:36 Dexamethasone 4 Mg/Ml Vial SLOW IVP 6 mg Q24H INGRID Administration Enoxaparin Sodium 40 mg 08/29/20 21:00 09/03/20 20:36 Enoxaparin Sodium 40 Mg/0.4 Ml Syringe SC 40 mg 2100 INGRID Administration Famotidine 20 mg 09/02/20 21:00 09/03/20 20:37 Famotidine/Pf 20 Mg/2ml Vial SLOW IVP 20 mg HS INGRID Administration Guaifenesin/Dextromethorphan 15 ml 08/28/20 21:56 08/30/20 21:41 Guaifenesin Dm 100-10/5 Ml Udcup PO 15 ml Q4H PRN Administration Cough Insulin Glargine 5 units/ 0.05 mls @ 0 mls/hr 09/01/20 09:00 09/04/20 09:56 Miscellaneous Medication SC 0.05 mls QAM INGRID Administration Piperacillin Sod/Tazobactam 100 mls @ 200 mls/hr 09/02/20 14:00 09/04/20 09:58 Sod 3.375 gm/ Sodium Chloride IVPB 100 mls 0200,0800,1400,2000 INGRID Administration Insulin Glargine 17 units/ 0.17 mls @ 0 mls/hr 09/02/20 21:00 09/03/20 20:35 Miscellaneous Medication SC 0.17 mls HS INGRID Administration Insulin Human Lispro 0 units 08/28/20 22:33 09/04/20 12:17 Humalog 300 Units/3 Ml Vial SC 3 unit .MILD SLIDING SCALE PRN Administration Mild Correctional Scale Insulin Human Lispro 0 units 08/30/20 01:38 08/30/20 21:39 Humalog 300 Units/3 Ml Vial SC 3 unit .BEDTIME SLIDING SC PRN Administration Bedtime Correctional Scale Pantoprazole Sodium 40 mg 08/31/20 09:00 09/04/20 09:59 Pantoprazole 40 Mg Tab PO 40 mg DAILY INGRID Administration Zinc Sulfate 220 mg 08/30/20 09:00 09/04/20 09:59 Zinc Sulfate 220 Mg Cap PO 220 mg DAILY INGRID Administration - Exam General Appearance: NAD, awake alert Eye: PERRL, anicteric sclera ENT: normocephalic atraumatic, no oropharyngeal lesions Neck: no JVD Heart: RRR, no murmur, no gallops, no rubs Respiratory: CTAB, no wheezes, no rales, no ronchi Gastrointestinal: soft, non-tender, non-distended, normal bowel sounds Extremities: no cyanosis, no clubbing, no edema Hosp A/P - Plan CTA thorax: extensive bilateral ground glass opacity Chest x ray 09/01: patchy ground glass opacities This is a 65 year old male who presented with cough, shortness of breath and body aches. He presented with respiratory failure and admitted for COVID pneumonia Acute hypoxic respiratory failure secondary to COVID - patient is going to high flow nasal cannula. . He is s/p 5 days of remdesivir - convalescent plasma given 09/03 . Continue Iv zosyn day 3 and IV steroids - encouraged incentive spirometer q2 hours - repeat labs today Type II diabetes - blood sugars 160-220. Continue lantus to 17 units qhs and continue 5 units qam Hypertension- controlled - BP 100-110 without lisinopril
[2020-09-04 13:23] LABS: Hemoglobin 14.4 g/dL (14.0-18.0); Mean Corpuscular HGB CONC 33.3 g/dL (32.0-36.0); Mean Corpuscular Hemoglobin 30.4 pg (27.0-31.0); Mean Corpuscular Volume 91.3 fL (78.0-98.0); Mean Platelet Volume 8.6 fL (7.4-10.4); Platelet Count 293 thou/uL (130-400); RBC Distribution Width 13.3 % (11.5-14.5); Red Blood Cell (RBC) Count 4.74 mill/uL (4.70-6.10); White Blood Cell (WBC) Count 11.5 thou/uL (4.8-10.8)
[2020-09-04 13:44] LABS: Anion Gap 14 mmol/L (10-20); BUN (Urea Nitrogen) 24 mg/dL (8.4-25.7); Calc. Creatinine Clearance 75 mL/min (70-130); Calcium 7.8 mg/dL (7.8-10.44); Carbon Dioxide 22 mmol/L (23-31); Chloride 102 mmol/L (98-107); Glucose 270 mg/dL (80-115); Potassium 4.2 mmol/L (3.5-5.1); Sodium 134 mmol/L (136-145)
--- NOTE | 2020-09-04 18:52 | CT ---
CT OF BRAIN PERFORMED WITHOUT CONTRAST ENHANCEMENT: 09/04/20 HISTORY: Weakness in right arm. Patient is also COVID positive. There is generalized ventricular and sulcal prominence. There are foci of decreased attenuation over both cerebral hemispheres and specifically over the frontal convexities. These changes have an acute appearance particularly the area within the right posterior frontal parafalcine location. The changes could be on the basis of embolic phenomenon. No acute hemorrhage is seen. Some increased attenuation is seen with the area in the parafalcine location on the right which may represent luxury perfusion. IMPRESSION: Areas of decreased attenuation over both frontal convexities. The changes have more of an acute appea felipe and raise the possibility of embolic type infarcts given the bilateral nature of these. POS: OFF
--- NOTE | 2020-09-04 20:10 | PDOC.EVN ---
Event Note - Event Note Event Note: CT concerning for cerebral infarcts, stroke workup, consult neurology. Continue ASA and start high intensity statin.
[2020-09-04] MEDS ORDERED: Enoxaparin Sodium 40 MG/0.4 ML SYRINGE SC SCH (21:00)
[2020-09-04] MEDS: Atorvastatin Calcium 40 MG TAB PO SCH (22:49)
[2020-09-04] MEDS: Famotidine/PF 20 mg/2ml Vial SLOW IVP SCH (22:50)
[2020-09-04] MEDS: Enoxaparin Sodium 40 MG/0.4 ML SYRINGE SC SCH (22:50)
[2020-09-04] MEDS: Dexamethasone 4 mg/ml Vial SLOW IVP SCH (22:50)
[2020-09-04] MEDS: Insulin Glargine 17 UNITS in Pre-Filled Syringe 1 EACH SC SCH (22:51)
[2020-09-05] MEDS ORDERED: Lorazepam 2 MG/ML VIAL SLOW IVP SCH (01:00)
[2020-09-05] MEDS ORDERED: Morphine 2 MG/ML VIAL SLOW IVP SCH (04:45)
[2020-09-05] MEDS: Piperacillin/Tazobactam 3.375 GM in Sodium Chloride 0.9% 100 ML IVPB SCH ×5 (04:49→20:23)
[2020-09-05 05:09] LABS: Actual Bicarbonate (HCO3a) 23.1 mEq/L (22-28); Analyzer IN Cardio OR; Base Excess (BEa) -0.3 mEq/L (-2.0 to +3.0); CO2 Tension 34.3 mmHg (35.0-45.0); Calcium, Ionized (arterial) 1.14 mmol/L (1.12-1.30); Carboxyhemoglobin (COHb) 0.8 gm% (0.0-3.0); Hemoglobin (Hb) 15.3 g/dL (14.0-18.0); Potassium - ABG Lab 4.49 mmol/L (3.70-5.30); pH, Arterial 7.45 (7.35-7.45)
[2020-09-05 05:11] LABS: Puncture Site RBA
[2020-09-05 05:12] LABS: ALV-art Gradient 268.625 mmHg (0-20)
[2020-09-05 05:24] LABS: Hemoglobin 14.9 g/dL (14.0-18.0); Mean Corpuscular HGB CONC 33.4 g/dL (32.0-36.0); Mean Corpuscular Hemoglobin 30.4 pg (27.0-31.0); Mean Platelet Volume 8.4 fL (7.4-10.4); Platelet Count 277 thou/uL (130-400); RBC Distribution Width 13.4 % (11.5-14.5); Red Blood Cell (RBC) Count 4.92 mill/uL (4.70-6.10); White Blood Cell (WBC) Count 9.9 thou/uL (4.8-10.8)
[2020-09-05 05:45] LABS: Cardiac Risk 3.7 (Less than 4.5)
--- NOTE | 2020-09-05 07:53 | ULT ---
BILATERAL CAROTID DUPLEX ULTRASOUND: HISTORY: Stroke. Right-sided weakness. CVA TECHNIQUE: Grayscale, color-flow and spectral Doppler ultrasound imaging of the extracranial carotid artery syst ems and vertebral arteries was performed bilaterally. FINDINGS: Minimal atherosclerotic plaque bilaterally. The peak systolic velocity in the right ICA measures 79.5 cm/s. The peak systolic velocity in the ri ght CCA measures 76.0 cm/s. The peak systolic velocity in the left ICA measures 65.6 cm/s. The peak systolic velocity in the l eft CCA measures 86.6 cm/s. The right IC/CC ration is1.05. The left IC/CC ratio is 0.76. Vertebral flow: antegrade, bilaterally. . IMPRESSION: No hemodynamically significant stenosis of either cervical carotid artery
--- NOTE | 2020-09-05 07:54 | RAD ---
Exam: Chest one view HISTORY:COVID positive patient. Worsening hypoxia. Comparison: 09/01/2020 FINDINGS: Cardiac silhouette: Normal Aorta: Unremarkable Pulmonary vessels: Normal Costophrenic angles: Clear LUNGS: Worsening multi lobar pneumonia. Pneumothorax: None Osseous abnormalities: None IMPRESSION: Worsening multi lobar COVID pneumonia.
--- NOTE | 2020-09-05 10:15 | CON ---
DATE OF CONSULTATION: 09/05/2020 CONSULTING PHYSICIAN: This is a CPOE by Jean Pierre Brumfield without any personal contact. REASON FOR CONSULTATION: The patient is on BiPAP for COVID pneumonia. HISTORY OF PRESENT ILLNESS: The patient is a 65-year-old male, who was admitted to this facility on 08/28/2020 by the hospitalist group for symptomatic COVID pneumonia. He has comorbidity of diabetes mellitus and hypertension. He has had progressive hypoxemia during his hospital course. His hospital course has been complicated by possible embolic infarcts to the brain. He is currently anticoagulated. He is on BiPAP. PAST MEDICAL HISTORY: Diabetes and hypertension. ALLERGIES: NONE. MEDICATIONS: Prior to admission; 1. Glimepiride. 2. Lisinopril. FAMILY MEDICAL HISTORY: Diabetes mellitus type 2. SOCIAL HISTORY: Never smoker. Does not consume alcohol. Does not use illicit drugs. REVIEW OF SYSTEMS: No history of pulmonary disease or heart disease. PHYSICAL EXAMINATION: VITAL SIGNS: Temperature 97.8, pulse 82, blood pressure 153/61, O2 saturation 96% on BiPAP 60%. HEENT: Unremarkable. NECK: No adenopathy or JVD. LUNGS: Inspiratory crackles. CARDIAC: S1 and S2. Regular. ABDOMEN: Soft. EXTREMITIES: No edema. LABORATORY DATA: Sodium 134, potassium 4.2, chloride 102, CO2 of 22, BUN 24, creatinine 1.3, glucose 270. PH 7.45, pCO2 of 34, pO2 of 45. White blood cell count 9.9, hematocrit 44.7, and platelet count 277. Chest x-ray shows bilateral infiltrates. ASSESSMENT: 1. COVID pneumonia. 2. Stroke. 3. Diabetes mellitus. PLAN: The patient is currently anticoagulated and is on steroids. The remainder of care is supportive in nature. I would add vitamin D to his regiment. Continue BiPAP as needed. Job ID: [id number]
[2020-09-05] MEDS: Insulin Glargine 5 UNITS in Pre-Filled Syringe 1 EACH SC SCH (10:44)
[2020-09-05] MEDS: Enoxaparin Sodium 80 MG/0.8 ML SYRINGE SC SCH (10:59)
[2020-09-05] MEDS: Aspirin 81 mg Enteric Coated Tablet PO SCH (10:59)
[2020-09-05] MEDS: Ascorbic Acid 500 mg Chewable Tablet PO SCH (10:59)
[2020-09-05] MEDS: Zinc Sulfate 220 MG CAP PO SCH (10:59)
--- NOTE | 2020-09-05 13:59 | CON ---
NEUROLOGY CONSULTATION DATE OF CONSULTATION: 09/05/2020 REASON FOR CONSULTATION: Stroke. HISTORY OF PRESENT ILLNESS: Mr. Baldomero Valdes is a 65-year-old male, who was consulted because of right-sided weakness. Head CT was performed, which showed acute infarction in the bilateral frontal region. The patient has been admitted into the hospital since 08/28/2020. He has a history of diabetes and hypertension and presented with cough, shortness of breath, weakness, body aches and the symptoms started 5 days prior to the admission because he went visit his mother with COVID last Thursday and developed symptoms 2 days later and was diagnosed with COVID. The patient was extremely short of breath, so he decided to come to the emergency room for further evaluation. In the emergency room, he was found to have ground-glass opacities for COVID on his chest x-ray and CTA and was admitted for further workup. Yesterday, he developed weakness, so head CT was done, which was positive for acute infarction. The patient denies nausea, vomiting, chest pain, abdominal pain, double vision, blurred vision, but does have loss of smell and taste. He denies any focal paresthesias, vertigo, dysuria, urinary incontinence, but does have problem with breathing. REVIEW OF SYSTEMS: All systems reviewed and were negative except the pertinent positives and negatives mentioned in the HPI. HOME MEDICATIONS: 1. Glimepiride. 2. Lisinopril. ALLERGIES: NKDA PAST MEDICAL HISTORY: 1. Hypertension. 2. Diabetes mellitus. PAST SURGICAL HISTORY: No significant past surgical history. FAMILY HISTORY: No family history of stroke. SOCIAL HISTORY: The patient denies smoking, alcohol, illegal drug use. Vital Signs & Weight: Vital Signs (12 hours) Temp Pulse Resp BP Pulse Ox 09/05/20 12:00 98 F 09/05/20 08:03 97.8 F 94 L 09/05/20 05:14 93 37 H 92 L 09/05/20 04:00 98.8 F 104 H 24 H 148/78 H 90 L Weight Weight 194 lb 12.8 oz Most Recent Monitor Data Heart Rate from ECG 97 NIBP 125/73 NIBP BP-Mean 90 Respiration from ECG 24 SpO2 94 I&O: 09/04/20 09/05/20 09/06/20 06:59 06:59 06:59 Intake Total 780 634 Output Total 900 400 100 Balance -120 234 -100 Result Diagrams: 09/05/20 04:51 09/04/20 13:02 Additional Labs: Accuchecks 09/05/20 09/05/20 09/04/20 11:59 04:59 23:07 POC Glucose 187 H 218 H 144 H 09/04/20 16:34 POC Glucose 149 H Active Medications Generic Name Dose Route Start Last Admin Trade Name Freq PRN Reason Stop Dose Admin Acetaminophen 650 mg 08/28/20 21:56 09/03/20 04:27 Acetaminophen 325 Mg Tab PO 650 mg Q4H PRN Administration Headache/Fever/Mild Pain (1-3) Albuterol Sulfate 1 puff 08/28/20 22:48 08/29/20 22:56 Albuterol 200 Puff (6.7gm Inhaler) INH 1 puff Q4H PRN Administration SOB &/or Wheezing Ascorbic Acid 1,000 mg 08/30/20 09:00 09/05/20 10:59 Ascorbic Acid 500 Mg Chewable Tablet PO 1,000 mg DAILY INGRID Administration Aspirin 81 mg 09/05/20 09:00 09/05/20 10:59 Aspirin 81 Mg Enteric Coated Tablet PO 81 mg DAILY INGRID Administration Atorvastatin Calcium 40 mg 09/04/20 21:00 09/04/20 22:49 Atorvastatin Calcium 40 Mg Tab PO 40 mg HS INGRID Administration Dexamethasone 6 mg 08/29/20 21:00 09/04/20 22:50 Dexamethasone 4 Mg/Ml Vial SLOW IVP 6 mg Q24H INGRID Administration Enoxaparin Sodium 80 mg 09/05/20 09:00 09/05/20 10:59 Enoxaparin Sodium 80 Mg/0.8 Ml Syringe SC 80 mg DAILY INGRID Administration Famotidine 20 mg 09/02/20 21:00 09/04/20 22:50 Famotidine/Pf 20 Mg/2ml Vial SLOW IVP 20 mg HS INGRID Administration Guaifenesin/Dextromethorphan 15 ml 08/28/20 21:56 08/30/20 21:41 Guaifenesin Dm 100-10/5 Ml Udcup PO 15 ml Q4H PRN Administration Cough Insulin Glargine 5 units/ 0.05 mls @ 0 mls/hr 09/01/20 09:00 09/05/20 10:44 Miscellaneous Medication SC Not Given QAM INGRID Piperacillin Sod/Tazobactam 100 mls @ 200 mls/hr 09/02/20 14:00 09/05/20 10:58 Sod 3.375 gm/ Sodium Chloride IVPB 100 mls 0200,0800,1400,2000 INGRID Administration Insulin Glargine 17 units/ 0.17 mls @ 0 mls/hr 09/02/20 21:00 09/04/20 22:51 Miscellaneous Medication SC 0.17 mls HS INGRID Administration Insulin Human Lispro 0 units 08/28/20 22:33 09/04/20 12:17 Humalog 300 Units/3 Ml Vial SC 3 unit .MILD SLIDING SCALE PRN Administration Mild Correctional Scale Insulin Human Lispro 0 units 08/30/20 01:38 08/30/20 21:39 Humalog 300 Units/3 Ml Vial SC 3 unit .BEDTIME SLIDING SC PRN Administration Bedtime Correctional Scale Pantoprazole Sodium 40 mg 08/31/20 09:00 09/05/20 10:59 Pantoprazole 40 Mg Tab PO 40 mg DAILY INGRID Administration Zinc Sulfate 220 mg 08/30/20 09:00 09/05/20 10:59 Zinc Sulfate 220 Mg Cap PO 220 mg DAILY INGRID Administration PHYSICAL EXAMINATION: General Appearance: NAD, awake alert Eye: PERRL, anicteric sclera ENT: normocephalic atraumatic, no oropharyngeal lesions Neck: no JVD Heart: RRR, no murmur, no gallops, no rubs Respiratory: CTAB, no wheezes Gastrointestinal: soft, non-tender, non-distended, normal bowel sounds Extremities: no cyanosis, no clubbing, no edema Neurological - Mental status, the patient is alert and oriented to person, place, and time. Speech is clear. Cranial nerves, pupils are 4 mm, round and reactive to light. Face symmetric. Tongue midline. Moves neck in both directions. Hearing is intact. Motor, muscle tone and bulk are normal, moving all 4 extremities. He was able to raise right upper and lower extremity above the bed. Strength 4+/5 in the right upper and lower extremity, 5/5 in the left upper and lower extremities. Cerebellar finger-nose testing intact. Right pronator drift. Gait deferred due to patient's safety reason. DATA REVIEWED: I reviewed the labs which were essentially unremarkable. Head CT reviewed which was positive for acute cerebral infarcts. ASSESSMENT AND PLAN: Mr. Baldomero Valdes is a 65-year-old male, who was admitted because of shortness of breath and cough due to COVID pneumonia and developed stroke. The stroke most likely secondary to go with because of hypercoagulable state. Consider increasing the dose of Lovenox. Head CT reviewed which was consistent with areas of decreased attenuation of the both frontal convexities. The changes are more of acute appearance, and there is a possibility of embolic type infarct. Given the bilateral nature of these infarcts, consider 2D echo to evaluate for left ventricular ejection fraction and to rule out thrombus or PFO. Telemetry to rule out arrhythmias. Carotid Dopplers did not reveal hemodynamically significant stenosis. Start aspirin and high- intensity statin for secondary stroke prevention. Permissive control of blood pressure at this time. Strict control of blood glucose. Continue home medications. Continue medical management per primary team and ID. PT/OT/speech. DVT prophylaxis. We will continue to follow. Thank you for the consult. Job ID: [id number] [facility]
--- NOTE | 2020-09-05 14:24 | PDOC.HOSPP ---
- Subjective Encounter Date: 09/05/20 Encounter Time: 10:30 Subjective: F/u: respiratory failure, COVID Overnight, the patient had some right arm weakness while working with physical therapy and there was concern for a stroke. There was also concern that the patient had a foot drop. CT head was ordered which confirmed embolic infarct The patient desaturated this morning on high flow and is now on BIPAP. The patient denies tingling or numbness in his arm. He still has a cough - Objective Vital Signs & Weight: Vital Signs (12 hours) Temp Pulse Resp BP Pulse Ox 09/05/20 12:00 98 F 09/05/20 08:03 97.8 F 94 L 09/05/20 05:14 93 37 H 92 L 09/05/20 04:00 98.8 F 104 H 24 H 148/78 H 90 L Weight Weight 194 lb 12.8 oz Most Recent Monitor Data Heart Rate from ECG 97 NIBP 125/73 NIBP BP-Mean 90 Respiration from ECG 24 SpO2 94 I&O: 09/04/20 09/05/20 09/06/20 06:59 06:59 06:59 Intake Total 780 634 Output Total 900 400 100 Balance -120 234 -100 Result Diagrams: 09/05/20 04:51 09/04/20 13:02 Additional Labs: Accuchecks 09/05/20 09/05/20 09/04/20 11:59 04:59 23:07 POC Glucose 187 H 218 H 144 H 09/04/20 16:34 POC Glucose 149 H Hospitalist ROS - Review of Systems Constitutional: denies: fever, chills - Medication Medications: Active Medications Generic Name Dose Route Start Last Admin Trade Name Freq PRN Reason Stop Dose Admin Acetaminophen 650 mg 08/28/20 21:56 09/03/20 04:27 Acetaminophen 325 Mg Tab PO 650 mg Q4H PRN Administration Headache/Fever/Mild Pain (1-3) Albuterol Sulfate 1 puff 08/28/20 22:48 08/29/20 22:56 Albuterol 200 Puff (6.7gm Inhaler) INH 1 puff Q4H PRN Administration SOB &/or Wheezing Ascorbic Acid 1,000 mg 08/30/20 09:00 09/05/20 10:59 Ascorbic Acid 500 Mg Chewable Tablet PO 1,000 mg DAILY INGRID Administration Aspirin 81 mg 09/05/20 09:00 09/05/20 10:59 Aspirin 81 Mg Enteric Coated Tablet PO 81 mg DAILY INGRID Administration Atorvastatin Calcium 40 mg 09/04/20 21:00 09/04/20 22:49 Atorvastatin Calcium 40 Mg Tab PO 40 mg HS INGRID Administration Dexamethasone 6 mg 08/29/20 21:00 09/04/20 22:50 Dexamethasone 4 Mg/Ml Vial SLOW IVP 6 mg Q24H INGRID Administration Enoxaparin Sodium 80 mg 09/05/20 09:00 09/05/20 10:59 Enoxaparin Sodium 80 Mg/0.8 Ml Syringe SC 80 mg DAILY INGRID Administration Famotidine 20 mg 09/02/20 21:00 09/04/20 22:50 Famotidine/Pf 20 Mg/2ml Vial SLOW IVP 20 mg HS INGRID Administration Guaifenesin/Dextromethorphan 15 ml 08/28/20 21:56 08/30/20 21:41 Guaifenesin Dm 100-10/5 Ml Udcup PO 15 ml Q4H PRN Administration Cough Insulin Glargine 5 units/ 0.05 mls @ 0 mls/hr 09/01/20 09:00 09/05/20 10:44 Miscellaneous Medication SC Not Given QAM INGRID Piperacillin Sod/Tazobactam 100 mls @ 200 mls/hr 09/02/20 14:00 09/05/20 10:58 Sod 3.375 gm/ Sodium Chloride IVPB 100 mls 0200,0800,1400,2000 INGRID Administration Insulin Glargine 17 units/ 0.17 mls @ 0 mls/hr 09/02/20 21:00 09/04/20 22:51 Miscellaneous Medication SC 0.17 mls HS INGRID Administration Insulin Human Lispro 0 units 08/28/20 22:33 09/04/20 12:17 Humalog 300 Units/3 Ml Vial SC 3 unit .MILD SLIDING SCALE PRN Administration Mild Correctional Scale Insulin Human Lispro 0 units 08/30/20 01:38 08/30/20 21:39 Humalog 300 Units/3 Ml Vial SC 3 unit .BEDTIME SLIDING SC PRN Administration Bedtime Correctional Scale Pantoprazole Sodium 40 mg 08/31/20 09:00 09/05/20 10:59 Pantoprazole 40 Mg Tab PO 40 mg DAILY INGRID Administration Zinc Sulfate 220 mg 08/30/20 09:00 09/05/20 10:59 Zinc Sulfate 220 Mg Cap PO 220 mg DAILY INGRID Administration - Exam General Appearance: NAD, awake alert Eye: PERRL, anicteric sclera ENT: normocephalic atraumatic, no oropharyngeal lesions Neck: no JVD Heart: RRR, no murmur, no gallops, no rubs Respiratory: CTAB, no wheezes Gastrointestinal: soft, non-tender, non-distended, normal bowel sounds Extremities: no cyanosis, no clubbing, no edema Neurological - other findings: pronator drift right side. RUE 4/5, RLE 4/5, LUE 4/5, LLE 4/5 Musculoskeletal: normal tone, normal strength, no muscle wasting Hosp A/P - Plan CTA thorax: extensive bilateral ground glass opacity Chest x ray 09/01: patchy ground glass opacities Chest X ray 09/05: worsening multilobar COVID pneumonia This is a 65 year old male who presented with cough, shortness of breath and bod y aches. He presented with respiratory failure and admitted for COVID pneumonia Acute hypoxic respiratory failure secondary to COVID- worsening - patient has now transitioned to BIPAP. Repeat chest Xray shows worsening. He is s/p 5 days of remdesivir - convalescent plasma given 09/03 . Continue Iv zosyn day 4 and IV steroids. WBC has improved to 9 -continue incentive spirometer q2 hours Type II diabetes - blood sugars 180-200. Continue lantus 17 units qhs and 5 units qam Hypertension- controlled - BP 100-110 without lisinopril
[2020-09-05] MEDS: Famotidine/PF 20 mg/2ml Vial SLOW IVP SCH (20:24)
[2020-09-05] MEDS: Cholecalciferol 1,000 UNITS (25 MCG) TAB PO SCH (20:25)
[2020-09-05] MEDS: Atorvastatin Calcium 40 MG TAB PO SCH (20:26)
[2020-09-05] MEDS: Dexamethasone 4 mg/ml Vial SLOW IVP SCH (20:28)
[2020-09-05] MEDS: Insulin Glargine 17 UNITS in Pre-Filled Syringe 1 EACH SC SCH (20:29)
[2020-09-06 05:53] LABS: Hemoglobin 14.9 g/dL (14.0-18.0); Mean Corpuscular HGB CONC 31.7 g/dL (32.0-36.0); Mean Corpuscular Hemoglobin 29.1 pg (27.0-31.0); Mean Corpuscular Volume 91.9 fL (78.0-98.0); Mean Platelet Volume 8.7 fL (7.4-10.4); Platelet Count 233 thou/uL (130-400); RBC Distribution Width 13.5 % (11.5-14.5); Red Blood Cell (RBC) Count 5.12 mill/uL (4.70-6.10); White Blood Cell (WBC) Count 8.7 thou/uL (4.8-10.8)
[2020-09-06 06:16] LABS: Anion Gap 12 mmol/L (10-20); BUN (Urea Nitrogen) 24 mg/dL (8.4-25.7); Calc. Creatinine Clearance 97 mL/min (70-130); Carbon Dioxide 24 mmol/L (23-31); Chloride 103 mmol/L (98-107); Glucose 146 mg/dL (80-115); Sodium 134 mmol/L (136-145)
[2020-09-06] MEDS: Piperacillin/Tazobactam 3.375 GM in Sodium Chloride 0.9% 100 ML IVPB SCH ×4 (09:03→20:38)
[2020-09-06] MEDS: Insulin Glargine 5 UNITS in Pre-Filled Syringe 1 EACH SC SCH (09:03)
[2020-09-06] MEDS: Zinc Sulfate 220 MG CAP PO SCH (09:36)
[2020-09-06] MEDS: Enoxaparin Sodium 80 MG/0.8 ML SYRINGE SC SCH (09:36)
[2020-09-06] MEDS: Ascorbic Acid 500 mg Chewable Tablet PO SCH (09:36)
[2020-09-06] MEDS: Aspirin 81 mg Enteric Coated Tablet PO SCH (09:36)
--- NOTE | 2020-09-06 11:07 | PRG ---
DATE OF SERVICE: 09/06/2020 SUBJECTIVE: He remains on BiPAP, appears to be comfortable, but his O2 saturations are generally running in the 80s to low 90s. OBJECTIVE: VITAL SIGNS: Temperature 98.2, pulse 86, blood pressure 117/58. HEENT: Unremarkable. NECK: No adenopathy or JVD. LUNGS: Crackles bilaterally. CARDIAC: S1, S2. Regular. ABDOMEN: Soft. EXTREMITIES: No edema. LABORATORY DATA: Sodium 134, potassium 5, chloride 103, CO2 of 24, BUN 24, creatinine 0.9, glucose 146, white blood cell count 8.7, hematocrit 47, platelet count 233. ASSESSMENT: 1. COVID-19 pneumonia. 2. Acute hypoxic respiratory failure. PLAN: He continues anticoagulation and steroids. Unfortunately, we have not seen much improvement, so I would expect at some point he is going to progress to the point where he needs to be intubated. Job ID: [id number]
--- NOTE | 2020-09-06 16:35 | PDOC.HOSPP ---
- Subjective Encounter Date: 09/06/20 Encounter Time: 08:00 Subjective: F/u: COVID THe patient is still on the BIPAP. He gets short of breath with any kind of movement so tries to stay still. STroke - he still has weakness on the right side. He denies numbness - Objective Vital Signs & Weight: Vital Signs (12 hours) Temp Pulse Pulse Pulse Resp BP BP 09/06/20 15:13 90 38 H 09/06/20 14:05 91 101 H 133/72 125/77 09/06/20 12:00 98.4 F 09/06/20 11:37 90 36 H 09/06/20 08:00 98.6 F 09/06/20 07:28 89 Pulse Ox Pulse Ox Pulse Ox 09/06/20 15:13 93 L 09/06/20 14:05 94 L 91 L 09/06/20 12:00 09/06/20 11:37 92 L 09/06/20 08:00 92 L 09/06/20 07:28 92 L Weight Weight 194 lb 12.8 oz Most Recent Monitor Data Heart Rate from ECG 99 NIBP 125/73 NIBP BP-Mean 90 Respiration from ECG 31 SpO2 92 I&O: 09/05/20 09/06/20 09/07/20 06:59 06:59 06:59 Intake Total 634 560 60 Output Total 400 1100 300 Balance 234 -540 -240 Result Diagrams: 09/06/20 05:23 09/06/20 05:22 Additional Labs: Accuchecks 09/05/20 09/05/20 22:52 17:20 POC Glucose 150 H 132 H Hospitalist ROS - Review of Systems Constitutional: denies: fever, chills - Medication Medications: Active Medications Generic Name Dose Route Start Last Admin Trade Name Freq PRN Reason Stop Dose Admin Acetaminophen 650 mg 08/28/20 21:56 09/03/20 04:27 Acetaminophen 325 Mg Tab PO 650 mg Q4H PRN Administration Headache/Fever/Mild Pain (1-3) Albuterol Sulfate 1 puff 08/28/20 22:48 08/29/20 22:56 Albuterol 200 Puff (6.7gm Inhaler) INH 1 puff Q4H PRN Administration SOB &/or Wheezing Ascorbic Acid 1,000 mg 08/30/20 09:00 09/06/20 09:36 Ascorbic Acid 500 Mg Chewable Tablet PO 1,000 mg DAILY INGRID Administration Aspirin 81 mg 09/05/20 09:00 09/06/20 09:36 Aspirin 81 Mg Enteric Coated Tablet PO 81 mg DAILY INGRID Administration Atorvastatin Calcium 40 mg 09/04/20 21:00 09/05/20 20:26 Atorvastatin Calcium 40 Mg Tab PO 40 mg HS INGRID Administration Cholecalciferol 5,000 units 09/05/20 21:00 09/05/20 20:25 Cholecalciferol 1,000 Units (25 Mcg) Tab PO 5,000 units HS [facility] Administration Dexamethasone 6 mg 08/29/20 21:00 09/05/20 20:28 Dexamethasone 4 Mg/Ml Vial SLOW IVP 6 mg Q24H INGRID Administration Enoxaparin Sodium 80 mg 09/05/20 09:00 09/06/20 09:36 Enoxaparin Sodium 80 Mg/0.8 Ml Syringe SC 80 mg DAILY INGRID Administration Guaifenesin/Dextromethorphan 15 ml 08/28/20 21:56 08/30/20 21:41 Guaifenesin Dm 100-10/5 Ml Udcup PO 15 ml Q4H PRN Administration Cough Insulin Glargine 5 units/ 0.05 mls @ 0 mls/hr 09/01/20 09:00 09/06/20 09:03 Miscellaneous Medication SC Not Given QAM INGRID Piperacillin Sod/Tazobactam 100 mls @ 200 mls/hr 09/02/20 14:00 09/06/20 15:09 Sod 3.375 gm/ Sodium Chloride IVPB 100 mls 0200,0800,1400,2000 [facility] Administration Insulin Glargine 17 units/ 0.17 mls @ 0 mls/hr 09/02/20 21:00 09/05/20 20:29 Miscellaneous Medication SC 0.17 mls HS INGRID Administration Insulin Human Lispro 0 units 08/28/20 22:33 09/04/20 12:17 Humalog 300 Units/3 Ml Vial SC 3 unit .MILD SLIDING SCALE PRN Administration Mild Correctional Scale Insulin Human Lispro 0 units 08/30/20 01:38 08/30/20 21:39 Humalog 300 Units/3 Ml Vial SC 3 unit .BEDTIME SLIDING SC PRN Administration Bedtime Correctional Scale Pantoprazole Sodium 40 mg 08/31/20 09:00 09/06/20 09:36 Pantoprazole 40 Mg Tab PO 40 mg DAILY INGRID Administration Zinc Sulfate 220 mg 08/30/20 09:00 09/06/20 09:36 Zinc Sulfate 220 Mg Cap PO 220 mg DAILY INGRID Administration - Exam General Appearance: NAD, awake alert Eye: PERRL, anicteric sclera ENT: normocephalic atraumatic, no oropharyngeal lesions Neck: no JVD Heart: RRR, no murmur, no gallops Respiratory: CTAB, no wheezes, no rales, no ronchi, no tachypnea Gastrointestinal: soft, non-tender, non-distended, normal bowel sounds Extremities: no cyanosis, no clubbing, no edema Neurological - other findings: pronator drift right arm. Decreased ROM of right leg Musculoskeletal - other findings: RUE 4/5, RLE 4/5, LUE 5/5, LLE 5/5. Hosp A/P - Plan CTA thorax: extensive bilateral ground glass opacity Chest x ray 09/01: patchy ground glass opacities Chest X ray 09/05: worsening multilobar COVID pneumonia CT head: embolic type infarcts bilaterally Carotid dopplers: no hemodynamically significant stenosis This is a 65 year old male who presented with cough, shortness of breath and body aches. He presented with respiratory failure and admitted for COVID pneumonia Acute hypoxic respiratory failure secondary to COVID- worsening - Repeat chest Xray 09/05 showed worsening. He is s/p 5 days of remdesivir, convalescent plasma 09/03. Continue zosyn day 12/21 and steroids. Sputum culture was inadequate and grew saliva - pulmonary has been following Acute stroke - patient had right arm weakness on 09/04. CT head showed embolic infarcts. Carotid doppler showed no significant stenosis - continue aspirin and statin - patient's lovenox was increased to 80 mg SC daily Type II diabetes - blood sugars 132-218. Continue lantus 17 units qhs and 5 units qam Hypertension- controlled -controlled without meds will monitor
[2020-09-06] MEDS: Sodium Chloride 0.9% 1,000 ML IV SCH (20:29)
[2020-09-06] MEDS: Dexamethasone 4 mg/ml Vial SLOW IVP SCH (20:38)
[2020-09-06] MEDS: Cholecalciferol 1,000 UNITS (25 MCG) TAB PO SCH (20:39)
[2020-09-06] MEDS: Atorvastatin Calcium 40 MG TAB PO SCH (20:39)
[2020-09-06] MEDS: Insulin Glargine 17 UNITS in Pre-Filled Syringe 1 EACH SC SCH (20:40)
[2020-09-07] MEDS: Guaifenesin DM 100-10/5 ML UDCUP PO PRN (00:02)
[2020-09-07] MEDS: Piperacillin/Tazobactam 3.375 GM in Sodium Chloride 0.9% 100 ML IVPB SCH ×4 (02:28→20:00)
[2020-09-07 03:47] LABS: Hemoglobin 15.1 g/dL (14.0-18.0); Mean Corpuscular Hemoglobin 31.1 pg (27.0-31.0); Mean Corpuscular Volume 91.4 fL (78.0-98.0); Mean Platelet Volume 8.5 fL (7.4-10.4); Platelet Count 196 thou/uL (130-400); RBC Distribution Width 13.3 % (11.5-14.5); Red Blood Cell (RBC) Count 4.88 mill/uL (4.70-6.10); White Blood Cell (WBC) Count 9.8 thou/uL (4.8-10.8)
[2020-09-07 04:11] LABS: Anion Gap 12 mmol/L (10-20); BUN (Urea Nitrogen) 22 mg/dL (8.4-25.7); Calc. Creatinine Clearance 101 mL/min (70-130); Calcium 7.9 mg/dL (7.8-10.44); Carbon Dioxide 23 mmol/L (23-31); Chloride 103 mmol/L (98-107); Glucose 146 mg/dL (80-115); Potassium 4.9 mmol/L (3.5-5.1); Sodium 133 mmol/L (136-145)
[2020-09-07] MEDS: Ascorbic Acid 500 mg Chewable Tablet PO SCH (09:16)
[2020-09-07] MEDS: Aspirin 81 mg Enteric Coated Tablet PO SCH (09:16)
[2020-09-07] MEDS: Zinc Sulfate 220 MG CAP PO SCH (09:16)
[2020-09-07] MEDS: Enoxaparin Sodium 80 MG/0.8 ML SYRINGE SC SCH (09:16)
[2020-09-07] MEDS: Insulin Glargine 5 UNITS in Pre-Filled Syringe 1 EACH SC SCH (09:19)
--- NOTE | 2020-09-07 14:10 | PDOC.HOSPP ---
- Subjective Encounter Date: 09/07/20 Encounter Time: 12:00 Subjective: F/u : COVID Patient is currently on BiPAP. His FiO2 is currently 96%. Respiratory rate is 36. Patient has been advised by nursing to try to lay prone or lay on his side. Patient states he is having difficulty laying on his side due to the discomfort associated with the mask. He states he does not want to be intubated at this time. I did advise him that he might wear out with this high FiO2 and if he were to change his mind and to let us know. He did indicate that he would want CPR He has only mild cough. No chest pain. Per nursing he is drinking Nepro supplementation periodically without aspiration. Speech has evaluated him and recommended honey thick liquid via spoon as a diet with risk - Objective Vital Signs & Weight: Vital Signs (12 hours) Temp Pulse Resp Pulse Ox 09/07/20 08:00 90 L 09/07/20 07:45 94 32 H 94 L 09/07/20 07:00 98.2 F 09/07/20 04:00 98.4 F 09/07/20 02:13 93 40 H 92 L Weight Admit Weight 194 lb 12.8 oz Weight 194 lb 12.8 oz Most Recent Monitor Data Heart Rate from ECG 94 NIBP 140/100 NIBP BP-Mean 113 Respiration from ECG 41 SpO2 88 I&O: 09/06/20 09/07/20 09/08/20 06:59 06:59 06:59 Intake Total 560 1277 Output Total 1100 900 300 Balance -540 377 -300 Result Diagrams: 09/07/20 03:34 09/07/20 03:34 Additional Labs: Accuchecks 09/06/20 09/06/20 09/06/20 21:25 17:44 09:46 POC Glucose 98 128 H 148 H Hospitalist ROS - Review of Systems Constitutional: denies: fever, chills - Medication Medications: Active Medications Generic Name Dose Route Start Last Admin Trade Name Freq PRN Reason Stop Dose Admin Acetaminophen 650 mg 08/28/20 21:56 09/03/20 04:27 Acetaminophen 325 Mg Tab PO 650 mg Q4H PRN Administration Headache/Fever/Mild Pain (1-3) Albuterol Sulfate 1 puff 08/28/20 22:48 08/29/20 22:56 Albuterol 200 Puff (6.7gm Inhaler) INH 1 puff Q4H PRN Administration SOB &/or Wheezing Ascorbic Acid 1,000 mg 08/30/20 09:00 09/07/20 09:16 Ascorbic Acid 500 Mg Chewable Tablet PO 1,000 mg DAILY INGRID Administration Aspirin 81 mg 09/05/20 09:00 09/07/20 09:16 Aspirin 81 Mg Enteric Coated Tablet PO 81 mg DAILY INGRID Administration Atorvastatin Calcium 40 mg 09/04/20 21:00 09/06/20 20:39 Atorvastatin Calcium 40 Mg Tab PO 40 mg HS INGRID Administration Cholecalciferol 5,000 units 09/05/20 21:00 09/06/20 20:39 Cholecalciferol 1,000 Units (25 Mcg) Tab PO 5,000 units HS INGRID Administration Dexamethasone 6 mg 08/29/20 21:00 09/06/20 20:38 Dexamethasone 4 Mg/Ml Vial SLOW IVP 6 mg Q24H INGRID Administration Enoxaparin Sodium 80 mg 09/05/20 09:00 09/07/20 09:16 Enoxaparin Sodium 80 Mg/0.8 Ml Syringe SC 80 mg DAILY INGRID Administration Guaifenesin/Dextromethorphan 15 ml 08/28/20 21:56 09/07/20 00:02 Guaifenesin Dm 100-10/5 Ml Udcup PO 15 ml Q4H PRN Administration Cough Insulin Glargine 5 units/ 0.05 mls @ 0 mls/hr 09/01/20 09:00 09/07/20 09:19 Miscellaneous Medication SC 0.05 mls QAM INGRID Administration Piperacillin Sod/Tazobactam 100 mls @ 200 mls/hr 09/02/20 14:00 09/07/20 08:48 Sod 3.375 gm/ Sodium Chloride IVPB 100 mls 0200,0800,1400,2000 INGRID Administration Insulin Glargine 17 units/ 0.17 mls @ 0 mls/hr 09/02/20 21:00 09/06/20 20:40 Miscellaneous Medication SC 0.17 mls HS INGRID Administration Sodium Chloride 1,000 mls @ 30 mls/hr 09/06/20 17:15 09/06/20 20:29 Normal Saline 0.9% IV 1,000 mls .Q24H INGRID Administration Insulin Human Lispro 0 units 08/28/20 22:33 09/04/20 12:17 Humalog 300 Units/3 Ml Vial SC 3 unit .MILD SLIDING SCALE PRN Administration Mild Correctional Scale Insulin Human Lispro 0 units 08/30/20 01:38 08/30/20 21:39 Humalog 300 Units/3 Ml Vial SC 3 unit .BEDTIME SLIDING SC PRN Administration Bedtime Correctional Scale Pantoprazole Sodium 40 mg 08/31/20 09:00 09/07/20 09:16 Pantoprazole 40 Mg Tab PO 40 mg DAILY INGRID Administration Zinc Sulfate 220 mg 08/30/20 09:00 09/07/20 09:16 Zinc Sulfate 220 Mg Cap PO 220 mg DAILY INGRID Administration - Exam General Appearance: NAD, awake alert General - other findings: On BiPAP Eye: PERRL, anicteric sclera ENT: normocephalic atraumatic, no oropharyngeal lesions Neck: no JVD Heart: RRR, no murmur, no gallops, no rubs Respiratory: CTAB, no wheezes, no rales, no ronchi Gastrointestinal: soft, non-tender, non-distended, normal bowel sounds Extremities: no cyanosis, no clubbing, no edema Skin: normal turgor, no lesions, no rashes Neurological - other findings: Right arm pronator drift. 5/5 strength RUE, RLE, LUE, LLE Musculoskeletal - other findings: Can lift the right arm higher than yesterday Hosp A/P - Plan CTA thorax: extensive bilateral ground glass opacity Chest x ray 09/01: patchy ground glass opacities Chest X ray 09/05: worsening multilobar COVID pneumonia CT head: embolic type infarcts bilaterally Carotid dopplers: no hemodynamically significant stenosis This is a 65 year old male who presented with cough, shortness of breath and body aches. He presented with respiratory failure and admitted for COVID pneu monia Acute hypoxic respiratory failure secondary to COVID- worsening - Repeat chest Xray 09/05 showed worsening. He is s/p 5 days of remdesivir, convalescent plasma 09/03. Continue zosyn day 6/7 and steroids. Sputum culture was inadequate and grew saliva - will repeat chest Xray and sputum culture. Patient currently does not want to be intubated. Will make a DNI unless he changes his mind Acute stroke - patient had right arm weakness on 09/04. CT head showed embolic infarcts. Carotid doppler showed no significant stenosis - continue aspirin and statin - patient's lovenox was increased to 80 mg SC daily . He still has some weakness on the right side but improving Type II diabetes - blood sugars 98-140. Continue lantus 17 units qhs and 5 units qam Hypertension- controlled -controlled without meds will monitor
--- NOTE | 2020-09-07 15:06 | RAD ---
EXAM: XR Chest 1 View Portable PROVIDED CLINICAL HISTORY: Shortness of breath COMPARISON: 09/05/2020 FINDINGS: Cardiac and mediastinal silhouette is unchanged in appearance. Interval development of pneumomediasti num. Extensive bilateral airspace disease persists. No pleural fluid is evident. Trace right apical pneumothorax versus overlying subcutaneous emphysema. IMPRESSION: Development of pneumomediastinum with trace right pneumothorax not excluded.
[2020-09-07] MEDS ORDERED: Fentanyl CADD 100 ML ONE (15:58)
[2020-09-07] MEDS ORDERED: Propofol BOLUS 1,000 MG/100 ML VIAL IV PRN (16:00)
[2020-09-07] MEDS ORDERED: Morphine 2 MG/ML VIAL SLOW IVP PRN (16:00)
[2020-09-07] MEDS ORDERED: Fentanyl BOLUS 250 ML IVPB PRN (16:00)
[2020-09-07] MEDS ORDERED: DISCONTINUE PREVIOUS NARCOTIC PAIN MEDICATIONS AND BENZODIAZEPINES FS SCH (16:00)
[2020-09-07] MEDS: Propofol 1,000 MG/100 ML VIAL IV PRN ×2 (16:06→20:50)
[2020-09-07] MEDS: Vecuronium 10 MG VIAL IV PRN (16:06)
--- NOTE | 2020-09-07 17:39 | RAD ---
PORTABLE CHEST: 09/07/20 PROVIDED CLINICAL HISTORY: Respiratory insufficiency. FINDINGS: Comparison is made with the examination performed earlier same date. Interval placement of endotrache al tube, the tip of which terminates in the expected location of the thoracic inlet. Interval placeme nt of enteric catheter, distal aspects of which are not visualized but are well below the diaphragm. Diffuse bilateral air space disease, pneumomediastinum, and suspected small right apical pneumothorax are again noted. IMPRESSION: Interval support apparatus as described. POS: WESLY
[2020-09-07 17:43] LABS: Actual Bicarbonate (HCO3a) 21.8 mEq/L (22-28); Base Excess (BEa) -4.7 mEq/L (-2.0 to +3.0); CO2 Tension 45.5 mmHg (35.0-45.0); Calcium, Ionized (arterial) 1.14 mmol/L (1.12-1.30); Carboxyhemoglobin (COHb) 0.9 gm% (0.0-3.0); Hemoglobin (Hb) 15.4 g/dL (14.0-18.0); O2 Tension (PaO2), arterial 56.7 mmHg (> 80.0)
[2020-09-07 17:44] LABS: Puncture Site RRA
[2020-09-07 17:49] LABS: ALV-art Gradient 599.425 mmHg (0-20)
[2020-09-07] MEDS: Sodium Chloride 0.9% 1,000 ML IV SCH (18:21)
[2020-09-07] MEDS ORDERED: Succinylcholine Chloride 200 MG/10 ML VIAL IV SCH (18:30)
[2020-09-07] MEDS ORDERED: PROPOFOL 200 MG/20 ML VIAL IV SCH (18:30)
[2020-09-07] MEDS ORDERED: Rocuronium Bromide 10 MG/ML (10ML VIAL) IVP SCH (18:30)
--- NOTE | 2020-09-07 18:57 | PRG ---
DATE OF SERVICE: 09/07/2020 SUBJECTIVE: Mr. Valdes throughout the day refused to have any discussion on intubation until late in the day, and then late in the day, he said he wanted to be intubated as he has become fatigued. He has been intubated since by Anesthesia. He is afebrile. Heart rate is 110, blood pressure 128/69. He is on 100% oxygen. Prior to intubation, his lungs, heart, and abdomen are unchanged from earlier exams. LABORATORY DATA: White count 9.8, hemoglobin 15.1, platelets 196. Electrolytes are unremarkable. Post intubation blood gas; pH 7.3, CO2 of 45, PO2 of 56, on 100% oxygen, PEEP of 10. He will likely benefit from prone ventilation. Job ID: [id number]
[2020-09-07] MEDS: Dexamethasone 4 mg/ml Vial SLOW IVP SCH (20:03)
[2020-09-07] MEDS: Cholecalciferol 1,000 UNITS (25 MCG) TAB PO SCH (20:16)
[2020-09-07] MEDS: Atorvastatin Calcium 40 MG TAB PO SCH (20:16)
[2020-09-07] MEDS: Insulin Glargine 17 UNITS in Pre-Filled Syringe 1 EACH SC SCH (20:28)
[2020-09-08] MEDS: Propofol 1,000 MG/100 ML VIAL IV PRN ×4 (01:02→14:47)
[2020-09-08] MEDS: Piperacillin/Tazobactam 3.375 GM in Sodium Chloride 0.9% 100 ML IVPB SCH ×4 (02:05→21:13)
[2020-09-08 04:32] LABS: Anion Gap 24 mmol/L (10-20); BUN (Urea Nitrogen) 36 mg/dL (8.4-25.7); Calc. Creatinine Clearance 36 mL/min (70-130); Carbon Dioxide 18 mmol/L (23-31); Chloride 102 mmol/L (98-107); Potassium 6.7 mmol/L (3.5-5.1); Sodium 137 mmol/L (136-145)
[2020-09-08 04:33] LABS: Calcium 8.1 mg/dL (7.8-10.44); Glucose 332 mg/dL (80-115)
--- NOTE | 2020-09-08 06:18 | PDOC.BPN ---
- Brief Progress Note Encounter Date: 09/08/20 Was informed about patient creatinine suddenly been elevated with increased potassium to 6.7. Patient has Covid and is intubated and prone Review of his pressuresof note he had low blood pressures with MAP at 58 at some point in the night. Mom said at time of evaluation was 60. He likely has YA due to hypotension however given his poor lung function and Covid infection reluctant to give him a lot of fluids. We will check EKG, insulin/dextrose for hyperkalemia Start Levophed for hypotension Renal consult
[2020-09-08] MEDS: HumaLOG 300 UNITS/3 ML VIAL SC PRN ×3 (06:27→16:27)
[2020-09-08 08:19] LABS: Anion Gap 24 mmol/L (10-20); BUN (Urea Nitrogen) 41 mg/dL (8.4-25.7); Calc. Creatinine Clearance 30 mL/min (70-130); Carbon Dioxide 16 mmol/L (23-31); Chloride 101 mmol/L (98-107); Glucose 395 mg/dL (80-115); Sodium 134 mmol/L (136-145)
[2020-09-08 08:25] LABS: Potassium 7.4 mmol/L (3.5-5.1)
[2020-09-08] MEDS ORDERED: Norepinephrine 8 MG/0.9% NS 250 ML ONE (09:22)
[2020-09-08] MEDS: Aspirin 81 mg Enteric Coated Tablet PO SCH (10:11)
[2020-09-08] MEDS: Ascorbic Acid 500 mg Chewable Tablet PO SCH (10:11)
[2020-09-08] MEDS: Insulin Glargine 5 UNITS in Pre-Filled Syringe 1 EACH SC SCH (10:12)
[2020-09-08] MEDS: Zinc Sulfate 220 MG CAP PO SCH (10:47)
[2020-09-08] MEDS: Enoxaparin Sodium 80 MG/0.8 ML SYRINGE SC SCH (10:47)
[2020-09-08 11:51] LABS: HBSAB Concentration Less than 8.00 mIU/mL; HBSAg Index 0.19 S/CO (0-0.99); Hep B Core Total Ab Non-Reactive (NonReactive); Hep B Core Total Index 0.07 S/CO (0-0.79); Hep B Surf AB Non-Reactive (NonReactive); Hep B Surf Ag Non-Reactive S/CO (NonReactive); Hep C IgG Ab Non-Reactive (NonReactive); Hep C Index 0.17 S/CO (0-0.79)
[2020-09-08] MEDS ORDERED: Fentanyl CADD 100 ML ONE (12:26)
[2020-09-08] MEDS ORDERED: Heparin 10,000 UNITS/ 10 ML VIAL ONE (12:48)
--- NOTE | 2020-09-08 14:24 | PDOC.HOSPP ---
- Subjective Encounter Date: 09/08/20 Encounter Time: 10:20 Subjective: Patient seen this morning. On vent. On prone position. Potassium level was quite high at 7.4 he has been treated with hyperkalemia protocol. Renal consult placed to this morning. We will repeat the potassium level - Objective Vital Signs & Weight: Vital Signs (12 hours) Temp Pulse Resp Pulse Ox 09/08/20 13:45 105 H 09/08/20 12:00 97.6 F 20 09/08/20 10:00 22 H 09/08/20 08:00 20 96 09/08/20 07:00 94.1 F L 09/08/20 06:58 103 H 09/08/20 03:22 112 H Weight Admit Weight 194 lb 12.8 oz Weight 194 lb 12.8 oz Most Recent Monitor Data Heart Rate from ECG 113 NIBP 71/48 NIBP BP-Mean 55 Respiration from ECG 21 SpO2 87 I&O: 09/07/20 09/08/20 09/09/20 06:59 06:59 06:59 Intake Total 1277 1516.8 35 Output Total 900 980 330 Balance 377 536.8 -295 Result Diagrams: 09/07/20 03:34 09/08/20 07:51 Additional Labs: Accuchecks 09/08/20 09/07/20 05:59 20:23 POC Glucose 349 H 162 H Hospitalist ROS - Medication Medications: Active Medications Generic Name Dose Route Start Last Admin Trade Name Freq PRN Reason Stop Dose Admin Acetaminophen 650 mg 08/28/20 21:56 09/03/20 04:27 Acetaminophen 325 Mg Tab PO 650 mg Q4H PRN Administration Headache/Fever/Mild Pain (1-3) Albuterol Sulfate 1 puff 08/28/20 22:48 08/29/20 22:56 Albuterol 200 Puff (6.7gm Inhaler) INH 1 puff Q4H PRN Administration SOB &/or Wheezing Ascorbic Acid 1,000 mg 08/30/20 09:00 09/08/20 10:11 Ascorbic Acid 500 Mg Chewable Tablet PO 1,000 mg DAILY INGRID Administration Aspirin 81 mg 09/05/20 09:00 09/08/20 10:11 Aspirin 81 Mg Enteric Coated Tablet PO 81 mg DAILY INGRID Administration Atorvastatin Calcium 40 mg 09/04/20 21:00 09/07/20 20:16 Atorvastatin Calcium 40 Mg Tab PO Not Given HS INGRID Cholecalciferol 5,000 units 09/05/20 21:00 09/07/20 20:16 Cholecalciferol 1,000 Units (25 Mcg) Tab PO Not Given HS INGRID Dexamethasone 6 mg 08/29/20 21:00 09/07/20 20:03 Dexamethasone 4 Mg/Ml Vial SLOW IVP 6 mg Q24H INGRID Administration Enoxaparin Sodium 80 mg 09/05/20 09:00 09/08/20 10:47 Enoxaparin Sodium 80 Mg/0.8 Ml Syringe SC Not Given DAILY INGRID Guaifenesin/Dextromethorphan 15 ml 08/28/20 21:56 09/07/20 00:02 Guaifenesin Dm 100-10/5 Ml Udcup PO 15 ml Q4H PRN Administration Cough Insulin Glargine 5 units/ 0.05 mls @ 0 mls/hr 09/01/20 09:00 09/08/20 10:12 Miscellaneous Medication SC 0.05 mls QAM INGRID Administration Piperacillin Sod/Tazobactam 100 mls @ 200 mls/hr 09/02/20 14:00 09/08/20 09:28 Sod 3.375 gm/ Sodium Chloride IVPB 100 mls 0200,0800,1400,2000 INGRID Administration Insulin Glargine 17 units/ 0.17 mls @ 0 mls/hr 09/02/20 21:00 09/07/20 20:28 Miscellaneous Medication SC Not Given HS INGRID Sodium Chloride 1,000 mls @ 30 mls/hr 09/06/20 17:15 09/07/20 18:21 Normal Saline 0.9% IV 1,000 mls .Q24H INGRID Administration Insulin Human Lispro 0 units 08/28/20 22:33 09/08/20 11:07 Humalog 300 Units/3 Ml Vial SC 5 unit .MILD SLIDING SCALE PRN Administration Mild Correctional Scale Insulin Human Lispro 0 units 08/30/20 01:38 08/30/20 21:39 Humalog 300 Units/3 Ml Vial SC 3 unit .BEDTIME SLIDING SC PRN Administration Bedtime Correctional Scale Pantoprazole Sodium 40 mg 08/31/20 09:00 09/08/20 10:11 Pantoprazole 40 Mg Tab PO 40 mg DAILY INGRID Administration Propofol 1,000 mg 09/07/20 16:00 09/08/20 11:13 Propofol 1,000 Mg/100 Ml Vial IV 10/07/20 16:00 1,000 mg INF PRN Administration TO ACHIEVE GOAL RASS Protocol Vecuronium [place] 10 mg 09/07/20 15:54 09/07/20 16:06 Vecuronium 10 Mg Vial IV 10 mg Q1H PRN Administration MOVEMENT Zinc Sulfate 220 mg 08/30/20 09:00 09/08/20 10:47 Zinc Sulfate 220 Mg Cap PO 220 mg DAILY INGRID Administration - Exam General - other findings: On vent ENT: normocephalic atraumatic Heart: RRR Respiratory: CTAB, normal chest expansion Gastrointestinal: soft, normal bowel sounds Neurological: cranial nerve grossly intact, no focal deficits Psychiatric: not oriented Hosp A/P - Plan 65 year old male presented with respiratory failure and admitted for COVID pneumonia Acute hypoxic respiratory failure secondary to COVID- worsening -Status post intubation - on - Repeat chest Xray 09/05 showed worsening. s/p remdesivir, convalescent plasma 09/03. Continue zosyn day 01/21 and steroids. - will repeat chest Xray and sputum culture. Acute stroke with right upper extremity weakness on - CT head showed embolic infarcts. Carotid doppler showed no significant stenosis - continue aspirin and statin - patient's lovenox was increased to 80 mg SC daily . He still has some weakness on the right side but improving Hypotension -Currently on Levophed Hyperkalemia in the context of acute renal failure -Status post hyperkalemia protocol followed. -We will repeat the potassium level this afternoon. -Nephrology consult placed Type II diabetes - blood sugars 98-140. Continue lantus 17 units qhs and 5 units qam Full code
[2020-09-08] MEDS: Sodium Chloride 0.9% 1,000 ML IV SCH (14:47)
[2020-09-08] MEDS ORDERED: Albumin 25% 200 ML ONE (15:59)
[2020-09-08] MEDS: Norepinephrine 8 MG/0.9% NS 250 ML IVPB SCH ×2 (16:00→21:14)
[2020-09-08] MEDS: Albumin 25% 25 GM/100 ML BOT IVPB SCH (16:42)
[2020-09-08 17:16] LABS: Anion Gap 20 mmol/L (10-20); BUN (Urea Nitrogen) 30 mg/dL (8.4-25.7); Calc. Creatinine Clearance 34 mL/min (70-130); Calcium 7.6 mg/dL (7.8-10.44); Carbon Dioxide 21 mmol/L (23-31); Chloride 103 mmol/L (98-107); Glucose 200 mg/dL (80-115); Potassium 5.3 mmol/L (3.5-5.1); Sodium 139 mmol/L (136-145)
--- NOTE | 2020-09-08 19:09 | PRG ---
DATE OF SERVICE: 09/08/2020 SUBJECTIVE: Baldomero Valdes was prone ventilated overnight. Unexpectedly, his potassium was 6.7 this morning and 7.4 on repeat. He had to be taken out of prone. His creatinine had gone from 0.9 to 2.58. It looks like his urine output overnight was between 20 mL and starting about midnight 0 to 10 mL. In any event, he was flipped back over supine, had a dialysis catheter placed and has been dialyzed. Potassium post dialysis is 5.3, creatinine is 2.73. White count is 9.8, hemoglobin 15.1, platelets 198. Hemodynamics have been stable. OBJECTIVE: VITAL SIGNS: Blood pressure 110/62 this afternoon, heart rate is 100, respiratory rate is 20, FiO2 is 65. LUNGS: Unchanged. HEART: Unchanged. ABDOMEN: Unchanged. IMPRESSION: COVID pneumonia with respiratory failure, now acute renal failure. PLAN: Continue support. Job ID: [id number]
--- NOTE | 2020-09-08 20:14 | CON ---
DATE OF CONSULTATION: 09/08/2020 CONSULTING PHYSICIAN: Dr. Engle. REASON FOR CONSULTATION: Hyperkalemia. REASON FOR ADMISSION: Shortness of breath. HISTORY OF PRESENT ILLNESS: A 65-year-old male with history of diabetes, hypertension, admitted with COVID and had shortness of breath and respiratory failure and has been evaluated. This morning, his potassium was found to be 7.4 with creatinine of 3.06. His baseline creatinine was 0.9. Nephrology was consulted. Emergency dialysis was done. Emergency catheter was placed. The patient is on COVID isolation. PAST MEDICAL HISTORY: Positive for hypertension, diabetes. PAST SURGICAL HISTORY: None. HOME MEDICATIONS: Reviewed. ALLERGIES: NO KNOWN DRUG ALLERGIES. SOCIAL HISTORY: No smoking, alcohol, or illicit drugs. FAMILY HISTORY: No history of kidney disease. REVIEW OF SYSTEMS: Could not be obtained. PHYSICAL EXAMINATION: VITAL SIGNS: Temperature 96.9, pulse 100, respiratory rate 20, blood pressure 110/66. The patient is on COVID isolation. LABORATORY DATA: Potassium 7.4, BUN is 41, and creatinine is 3.06. ASSESSMENT AND PLAN: 1. Severe life-threatening hyperkalemia. Plan is to have emergent dialysis. 2. Acute kidney injury, on dialysis. 3. Acidosis. 4. Hyponatremia. 5. Acute hypoxic respiratory failure. 6. COVID-19 infection. 7. Edema. Prognosis is guarded. We will have emergent dialysis for severe life-threatening hyperkalemia. Surgeon notified. We will follow. Job ID: [id number]
--- NOTE | 2020-09-08 20:20 | OP ---
DATE OF PROCEDURE: 09/08/2020 PREOPERATIVE DIAGNOSIS: Acute renal failure with hyperkalemia. POSTOPERATIVE DIAGNOSIS: Acute renal failure with hyperkalemia. OPERATION PERFORMED: Placement of right femoral Trialysis hemodialysis catheter. ANESTHESIA: 1% lidocaine. INDICATIONS FOR PROCEDURE: The patient is a 65-year-old male, who is intubated in the intensive care unit secondary to Coronavirus. 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 DESCRIPTION OF PROCEDURE: Informed consent was obtained. The patient was placed in the supine position on his bed in the intensive care unit. Right groin was trimmed of hair, prepped with ChloraPrep, draped in sterile fashion. Local anesthetic was infiltrated using 1% lidocaine. Large gauge needle was advanced uneventfully into the right femoral vein and guidewire was passed through this needle. Needle was removed, skin was incised, tract was dilated, and the Trialysis catheter was advanced over the wire uneventfully. Each of the three lumens aspirated blood freely and was flushed with heparinized saline. Catheter was secured at skin exit site with 3-0 silk suture. Sterile occlusive dressing was applied. There were no complications. The patient tolerated the procedure well and is cleared to begin hemodialysis. Job ID: [id number]
[2020-09-08] MEDS: Atorvastatin Calcium 40 MG TAB PO SCH (20:49)
[2020-09-08] MEDS: Cholecalciferol 1,000 UNITS (25 MCG) TAB PO SCH (20:49)
[2020-09-08] MEDS: Enoxaparin Sodium 30 MG/0.3 ML SYRINGE SC SCH (20:50)
[2020-09-08] MEDS: Insulin Glargine 17 UNITS in Pre-Filled Syringe 1 EACH SC SCH (20:55)
[2020-09-08] MEDS: Dexamethasone 4 mg/ml Vial SLOW IVP SCH (21:24)
[2020-09-09] MEDS: Piperacillin/Tazobactam 3.375 GM in Sodium Chloride 0.9% 100 ML IVPB SCH ×4 (01:07→20:49)
[2020-09-09] MEDS: Propofol 1,000 MG/100 ML VIAL IV PRN ×3 (01:07→14:57)
[2020-09-09] MEDS: Norepinephrine 8 MG/0.9% NS 250 ML IVPB SCH (01:26)
[2020-09-09] MEDS: HumaLOG 300 UNITS/3 ML VIAL SC PRN (05:10)
[2020-09-09 06:59] LABS: Band 3 % (5-11); Hemoglobin 12.1 g/dL (14.0-18.0); Hypochromia SLIGHT = 6-15 cells (100X) (0-5/hpf); Lymphocytes 2 % (21-51); MDiff Complete? YES; Mean Corpuscular HGB CONC 32.1 g/dL (32.0-36.0); Mean Corpuscular Hemoglobin 29.8 pg (27.0-31.0); Mean Platelet Volume 10.2 fL (7.4-10.4); Monocytes 10 % (0-10); Neutrophil 84 % (42-75); Platelet Count 128 thou/uL (130-400); Platelet Morphology Comment Appears Adequate; RBC Distribution Width 13.5 % (11.5-14.5); Reactive Lymphocytes 1 % (0-10); Red Blood Cell (RBC) Count 4.07 mill/uL (4.70-6.10); White Blood Cell (WBC) Count 19.3 thou/uL (4.8-10.8)
[2020-09-09 07:00] LABS: Anion Gap 18 mmol/L (10-20); BUN (Urea Nitrogen) 45 mg/dL (8.4-25.7); Calc. Creatinine Clearance 21 mL/min (70-130); Calcium 7.3 mg/dL (7.8-10.44); Carbon Dioxide 21 mmol/L (23-31); Chloride 102 mmol/L (98-107); Glucose 250 mg/dL (80-115); Potassium 5.1 mmol/L (3.5-5.1); Sodium 136 mmol/L (136-145)
[2020-09-09] MEDS ORDERED: Fentanyl CADD 100 ML ONE (08:53)
[2020-09-09] MEDS ORDERED: HumuLIN 70/30 (300 UNITS/3 ML VIAL) SC SCH ×2 (09:00→14:30)
[2020-09-09] MEDS: Ascorbic Acid 500 mg Chewable Tablet PO SCH (09:45)
[2020-09-09] MEDS: Zinc Sulfate 220 MG CAP PO SCH (09:45)
[2020-09-09] MEDS: Aspirin 81 mg Enteric Coated Tablet PO SCH (09:45)
[2020-09-09] MEDS: Enoxaparin Sodium 30 MG/0.3 ML SYRINGE SC SCH ×2 (09:47→20:50)
--- NOTE | 2020-09-09 13:53 | PRG ---
DATE OF SERVICE: 09/09/2020 SUBJECTIVE: The patient is in COVID isolation. OBJECTIVE: VITAL SIGNS: Temperature 99.1, pulse 65, respiratory rate 20, blood pressure 108/64. LABORATORY DATA: Potassium 5.1, BUN is 45, and creatinine is 4.4. ASSESSMENT AND PLAN: 1. Acute kidney injury on chronic kidney disease, stage 2, with worsening labs. 2. Hyperkalemia. Potassium is better. We will have another session of dialysis today. 3. COVID-19 infection. 4. Acute hypoxic respiratory failure. 5. Acidosis. 6. Hyponatremia. 7. Plan to have dialysis for 2 hours today with 300 blood flow and 500 mL/minute dialysate flow, and monitor labs. Job ID: [id number]
--- NOTE | 2020-09-09 14:25 | PDOC.HOSPP ---
- Subjective Encounter Date: 09/09/20 Encounter Time: 11:35 Subjective: Patient received yesterday a right femoral catheter for emergent dialysis. Had a dialysis yesterday. Plan for another session of dialysis today. Remains on the vent. - Objective Vital Signs & Weight: Vital Signs (12 hours) Temp Pulse Resp 09/09/20 10:27 88 09/09/20 10:00 20 09/09/20 08:00 20 09/09/20 06:51 86 09/09/20 06:00 20 09/09/20 04:00 99.1 F 20 09/09/20 02:56 93 Weight Admit Weight 194 lb 12.8 oz Weight 194 lb 12.8 oz Most Recent Monitor Data Heart Rate from ECG 88 NIBP 108/64 NIBP BP-Mean 78 Respiration from ECG 20 SpO2 93 I&O: 09/08/20 09/09/20 09/10/20 06:59 06:59 06:59 Intake Total 1516.8 1378 Output Total 980 465 0 Balance 536.8 913 0 Result Diagrams: 09/09/20 06:15 09/09/20 06:15 Additional Labs: Accuchecks 09/09/20 05:04 POC Glucose 232 H Hospitalist ROS - Medication Medications: Active Medications Generic Name Dose Route Start Last Admin Trade Name Freq PRN Reason Stop Dose Admin Acetaminophen 650 mg 08/28/20 21:56 09/03/20 04:27 Acetaminophen 325 Mg Tab PO 650 mg Q4H PRN Administration Headache/Fever/Mild Pain (1-3) Albuterol Sulfate 1 puff 08/28/20 22:48 08/29/20 22:56 Albuterol 200 Puff (6.7gm Inhaler) INH 1 puff Q4H PRN Administration SOB &/or Wheezing Ascorbic Acid 1,000 mg 08/30/20 09:00 09/09/20 09:45 Ascorbic Acid 500 Mg Chewable Tablet PO 1,000 mg DAILY INGRID Administration Aspirin 81 mg 09/05/20 09:00 09/09/20 09:45 Aspirin 81 Mg Enteric Coated Tablet PO 81 mg DAILY INGRID Administration Atorvastatin Calcium 40 mg 09/04/20 21:00 09/08/20 20:49 Atorvastatin Calcium 40 Mg Tab PO 40 mg HS INGRID Administration Cholecalciferol 5,000 units 09/05/20 21:00 09/08/20 20:49 Cholecalciferol 1,000 Units (25 Mcg) Tab PO 5,000 units HS INGRID Administration Dexamethasone 6 mg 08/29/20 21:00 09/08/20 21:24 Dexamethasone 4 Mg/Ml Vial SLOW IVP 6 mg Q24H INGRID Administration Enoxaparin Sodium 30 mg 09/08/20 21:00 09/09/20 09:47 Enoxaparin Sodium 30 Mg/0.3 Ml Syringe SC 30 mg 0900,2100 INGRID Administration Guaifenesin/Dextromethorphan 15 ml 08/28/20 21:56 09/07/20 00:02 Guaifenesin Dm 100-10/5 Ml Udcup PO 15 ml Q4H PRN Administration Cough Piperacillin Sod/Tazobactam 100 mls @ 200 mls/hr 09/02/20 14:00 09/09/20 08:57 Sod 3.375 gm/ Sodium Chloride IVPB 100 mls 0200,0800,1400,2000 INGRID Administration Insulin Glargine 17 units/ 0.17 mls @ 0 mls/hr 09/02/20 21:00 09/08/20 20:55 Miscellaneous Medication SC 0.17 mls HS INGRID Administration Sodium Chloride 1,000 mls @ 30 mls/hr 09/06/20 17:15 09/08/20 14:47 Normal Saline 0.9% IV 1,000 mls .Q24H INGRID Administration Norepinephrine Bitartrate 250 mls @ 0 mls/hr 09/08/20 10:15 09/09/20 01:26 Levophed IVPB 250 mls INF INGRID Administration Insulin Human Isoph/Insulin Regular 10 units 09/09/20 09:00 09/09/20 09:45 Humulin 70/30 (300 Units/3 Ml Vial) SC 10 unit BID INGRID Administration Insulin Human Lispro 0 units 08/28/20 22:33 09/09/20 05:10 Humalog 300 Units/3 Ml Vial SC 3 unit .MILD SLIDING SCALE PRN Administration Mild Correctional Scale Insulin Human Lispro 0 units 08/30/20 01:38 08/30/20 21:39 Humalog 300 Units/3 Ml Vial SC 3 unit .BEDTIME SLIDING SC PRN Administration Bedtime Correctional Scale Pantoprazole Sodium 40 mg 08/31/20 09:00 09/09/20 09:45 Pantoprazole 40 Mg Tab PO 40 mg DAILY INGRID Administration Propofol 1,000 mg 09/07/20 16:00 09/09/20 08:58 Propofol 1,000 Mg/100 Ml Vial IV 10/07/20 16:00 1,000 mg INF PRN Administration TO ACHIEVE GOAL RASS Protocol Vecuronium [place] 10 mg 09/07/20 15:54 09/07/20 16:06 Vecuronium 10 Mg Vial IV 10 mg Q1H PRN Administration MOVEMENT Zinc Sulfate 220 mg 08/30/20 09:00 09/09/20 09:45 Zinc Sulfate 220 Mg Cap PO 220 mg DAILY INGRID Administration - Exam General Appearance: ill appearing General - other findings: Underwent Eye: PERRL ENT: normocephalic atraumatic Neck: supple Heart: RRR Respiratory: normal chest expansion Neurological: cranial nerve grossly intact Psychiatric: not oriented Hosp A/P - Plan 65 year old male presented with respiratory failure and admitted for COVID pneumonia Acute hypoxic respiratory failure secondary to COVID- worsening -Status post intubation - on - Repeat chest Xray 09/05 showed worsening. s/p remdesivir, convalescent plasma 09/03. Continue zosyn day 6/7 and steroids. - will repeat chest Xray and sputum culture. Acute stroke with right upper extremity weakness on - CT head showed embolic infarcts. Carotid doppler showed no significant sten osis - continue aspirin and statin - patient's lovenox was increased to 80 mg SC daily . He still has some weakness on the right side but improving Hypotension -Currently on Levophed Hyperkalemia in the context of acute renal failure -Status post hyperkalemia protocol followed. -We will repeat the potassium level this afternoon. Acute kidney injury with chronic kidney disease stage II -Status post right femoral catheter placement for emergent dialysis. He received the dialysis yesterday and possibly plan for another session today. -His potassium trended down today at 5 White count jumped to 19.3 [?sux intervention] -He is still on Zosyn. Type II diabetes - blood sugars 98-140. Continue lantus 17 units qhs and 5 units qam -Blood glucose is quite high probably with added acute stress Increased his NPH dose -discontinue the Lantus as it is not easy to use the long-acting insulin for titration Full code
[2020-09-09] MEDS: Sodium Chloride 0.9% 1,000 ML IV SCH (14:59)
--- NOTE | 2020-09-09 16:09 | PRG ---
DATE OF SERVICE: 09/09/2020 SUBJECTIVE: Baldomero Valdes remains mechanically ventilated. OBJECTIVE: VITAL SIGNS: Heart rate is in the 90s, blood pressure 116/68, FiO2 is at 60%, oximetry is in the low 90s. LUNGS: Remarkable for coarse equal breath sounds. HEART: Regular rhythm. ABDOMEN: Soft. LABORATORY DATA: White count 19.3, hemoglobin 12.1, and platelets 128. Sodium 136, potassium 5.1, chloride 102, bicarb 21, BUN 45, and creatinine 4.41. IMPRESSION: 1. COVID pneumonia. 2. Respiratory failure. 3. Renal insufficiency, requiring dialysis. PLAN: Continue supportive care. Job ID: [id number]
[2020-09-09] MEDS: Atorvastatin Calcium 40 MG TAB PO SCH (20:50)
[2020-09-09] MEDS: HumuLIN 70/30 (300 UNITS/3 ML VIAL) SC SCH ×2 (20:52→23:51)
[2020-09-09] MEDS: Dexamethasone 4 mg/ml Vial SLOW IVP SCH (20:54)
[2020-09-09] MEDS: Cholecalciferol 1,000 UNITS (25 MCG) TAB PO SCH (21:01)
[2020-09-10] MEDS: Piperacillin/Tazobactam 3.375 GM in Sodium Chloride 0.9% 100 ML IVPB SCH ×2 (01:22→08:29)
[2020-09-10] MEDS: Propofol 1,000 MG/100 ML VIAL IV PRN (04:11)
[2020-09-10] MEDS ORDERED: Fentanyl CADD 100 ML ONE (04:55)
[2020-09-10] MEDS: Fentanyl CADD 100 ML IV SCH (04:58)
[2020-09-10 05:37] LABS: Hemoglobin 11.8 g/dL (14.0-18.0); Mean Corpuscular HGB CONC 32.4 g/dL (32.0-36.0); Mean Corpuscular Hemoglobin 29.8 pg (27.0-31.0); Mean Corpuscular Volume 91.9 fL (78.0-98.0); Mean Platelet Volume 10.7 fL (7.4-10.4); Platelet Count 83 thou/uL (130-400); RBC Distribution Width 13.6 % (11.5-14.5); Red Blood Cell (RBC) Count 3.95 mill/uL (4.70-6.10); White Blood Cell (WBC) Count 23.6 thou/uL (4.8-10.8)
[2020-09-10 05:38] LABS: Band 9 % (5-11); Lymphocytes 5 % (21-51); MDiff Complete? YES; Neutrophil 86 % (42-75); Platelet Morphology Comment Appears Decreased
[2020-09-10 05:45] LABS: Hemoglobin A1c 9.1 % (4.0-6.0)
[2020-09-10 06:07] LABS: Anion Gap 21 mmol/L (10-20); BUN (Urea Nitrogen) 63 mg/dL (8.4-25.7); Calc. Creatinine Clearance 14 mL/min (70-130); Calcium 7.4 mg/dL (7.8-10.44); Carbon Dioxide 21 mmol/L (23-31); Chloride 103 mmol/L (98-107); Glucose 84 mg/dL (80-115); Potassium 4.5 mmol/L (3.5-5.1); Sodium 140 mmol/L (136-145)
[2020-09-10] MEDS: Ascorbic Acid 500 mg Chewable Tablet PO SCH (08:29)
[2020-09-10] MEDS: Aspirin 81 mg Enteric Coated Tablet PO SCH (08:30)
[2020-09-10] MEDS: Zinc Sulfate 220 MG CAP PO SCH (08:31)
[2020-09-10] MEDS: Enoxaparin Sodium 30 MG/0.3 ML SYRINGE SC SCH (08:57)
[2020-09-10] MEDS: HumuLIN 70/30 (300 UNITS/3 ML VIAL) SC SCH (08:58)
--- NOTE | 2020-09-10 11:13 | PRG ---
DATE OF SERVICE: 09/10/2020 TIME SPENT: 35 minutes of critical care time. SUBJECTIVE: The patient remains intubated on mechanical ventilation. He is currently receiving dialysis. PHYSICAL EXAMINATION: VITAL SIGNS: Temperature 95.1, pulse 94, blood pressure 111/66, O2 saturation 87%. He is sedated on fentanyl. He has been weaned off the Levophed. He is also on some propofol. 24-hour intake 97, output 5 mL. HEENT: Unremarkable. NECK: No adenopathy or JVD. LUNGS: Poor air movement with crackles. CARDIAC: S1 and S2. Regular. ABDOMEN: Soft and nontender. EXTREMITIES: Edematous. LABORATORY DATA: White blood cell count 23.6, hematocrit 36.3, and platelet count 83. Sodium 140, potassium 4.5, chloride 103, CO2 of 21, BUN 63, creatinine 6.5, glucose 84. ASSESSMENT: 1. COVID-19 pneumonia. 2. Acute hypoxic respiratory failure, requiring mechanical ventilation. 3. Acute renal failure secondary to COVID. 4. Developing thrombocytopenia. PLAN: He is not weanable at this point. He is on empiric antibiotics, but I am concerned his white blood cell count continues to increase. Based on that, I will go ahead and get some cultures. He is undergoing dialysis. His blood sugars appear to be low on his current insulin regimen, so we will back down on that and put him on NPH 70/30. His prognosis for recovery is very poor. Job ID: [id number]
[2020-09-10] MEDS ORDERED: ZOSYN IVPB PRN (11:49)
[2020-09-10] MEDS ORDERED: Heparin 10,000 UNITS/ 10 ML VIAL ONE (12:44)
--- NOTE | 2020-09-10 14:08 | PDOC.HOSPP ---
- Subjective Encounter Date: 09/10/20 Encounter Time: 11:10 Subjective: Hemodialysis ongoing. For the last 2 days his blood sugar was quite high hence up titration of 7030. This morning his sugar was dropping hence changed from Humulin to isophane - Objective Vital Signs & Weight: Vital Signs (12 hours) Temp Pulse Resp Pulse Ox 09/10/20 13:00 97.9 F 09/10/20 12:00 20 09/10/20 10:46 89 09/10/20 10:00 20 09/10/20 08:00 95.1 F L 20 90 L 09/10/20 07:30 92 09/10/20 06:00 40 H 09/10/20 04:00 20 Weight Admit Weight 194 lb 12.8 oz Weight 203 lb Most Recent Monitor Data Heart Rate from ECG 109 NIBP 104/52 NIBP BP-Mean 69 Respiration from ECG 21 SpO2 90 I&O: 09/09/20 09/10/20 09/11/20 06:59 06:59 06:59 Intake Total 1378 987 Output Total 465 5 0 Balance 913 982 0 Result Diagrams: 09/10/20 04:00 09/10/20 04:00 Additional Labs: Accuchecks 09/10/20 09/10/20 09/10/20 08:38 02:48 01:33 POC Glucose 91 72 63 L 09/09/20 09/09/20 09/09/20 21:49 21:24 21:23 POC Glucose 148 H 39 L* 37 L* 09/09/20 09/09/20 09/08/20 16:30 11:11 16:07 POC Glucose 109 H 194 H 186 H 09/08/20 09/07/20 09/07/20 11:01 17:02 12:29 POC Glucose 347 H 103 H 90 Hospitalist ROS - Medication Medications: Active Medications Generic Name Dose Route Start Last Admin Trade Name Freq PRN Reason Stop Dose Admin Acetaminophen 650 mg 08/28/20 21:56 09/03/20 04:27 Acetaminophen 325 Mg Tab PO 650 mg Q4H PRN Administration Headache/Fever/Mild Pain (1-3) Albuterol Sulfate 1 puff 08/28/20 22:48 08/29/20 22:56 Albuterol 200 Puff (6.7gm Inhaler) INH 1 puff Q4H PRN Administration SOB &/or Wheezing Ascorbic Acid 1,000 mg 08/30/20 09:00 09/10/20 08:29 Ascorbic Acid 500 Mg Chewable Tablet PO 1,000 mg DAILY INGRID Administration Atorvastatin Calcium 40 mg 09/04/20 21:00 09/09/20 20:50 Atorvastatin Calcium 40 Mg Tab PO 40 mg HS INGRID Administration Cholecalciferol 5,000 units 09/05/20 21:00 09/09/20 21:01 Cholecalciferol 1,000 Units (25 Mcg) Tab PO 5,000 units HS INGRID Administration Dexamethasone 6 mg 08/29/20 21:00 09/09/20 20:54 Dexamethasone 4 Mg/Ml Vial SLOW IVP 6 mg Q24H INGRID Administration Dextrose/Water 25 gm 08/28/20 22:33 09/09/20 21:28 Dextrose 50% Abboject 50 Ml Syringe SLOW IVP 25 gm PRN PRN Administration Hypoglycemia Guaifenesin/Dextromethorphan 15 ml 08/28/20 21:56 09/07/20 00:02 Guaifenesin Dm 100-10/5 Ml Udcup PO 15 ml Q4H PRN Administration Cough Sodium Chloride 1,000 mls @ 30 mls/hr 09/06/20 17:15 09/09/20 14:59 Normal Saline 0.9% IV 1,000 mls .Q24H INGRID Administration Fentanyl 100 mls @ 0 mls/hr 09/07/20 16:00 09/10/20 04:58 Fentanyl Cadd IV 10/07/20 16:00 100 mls INF INGRID Administration Protocol Per Protocol Norepinephrine Bitartrate 250 mls @ 0 mls/hr 09/08/20 10:15 09/09/20 01:26 Levophed IVPB 250 mls INF INGRID Administration Insulin Human Lispro 0 units 08/28/20 22:33 09/09/20 05:10 Humalog 300 Units/3 Ml Vial SC 3 unit .MILD SLIDING SCALE PRN Administration Mild Correctional Scale Insulin Human Lispro 0 units 08/30/20 01:38 08/30/20 21:39 Humalog 300 Units/3 Ml Vial SC 3 unit .BEDTIME SLIDING SC PRN Administration Bedtime Correctional Scale Propofol 1,000 mg 09/07/20 16:00 09/10/20 04:11 Propofol 1,000 Mg/100 Ml Vial IV 10/07/20 16:00 1,000 mg INF PRN Administration TO ACHIEVE GOAL RASS Protocol Vecuronium [place] 10 mg 09/07/20 15:54 09/07/20 16:06 Vecuronium 10 Mg Vial IV 10 mg Q1H PRN Administration MOVEMENT Zinc Sulfate 220 mg 08/30/20 09:00 09/10/20 08:31 Zinc Sulfate 220 Mg Cap PO 220 mg DAILY INGRID Administration - Exam General Appearance: ill appearing General - other findings: Getting hemodialysis Eye: PERRL ENT: normocephalic atraumatic Neck: supple Heart: RRR Respiratory: normal chest expansion Gastrointestinal: soft, normal bowel sounds Neurological: no focal deficits Psychiatric: not oriented Hosp A/P - Plan 65 year old male presented with respiratory failure and admitted for COVID pneumonia Acute hypoxic respiratory failure secondary to COVID- worsening -Status post intubation - on - Repeat chest Xray 09/05 showed worsening. s/p remdesivir, convalescent plasma 09/03. Continue zosyn day 02/20 and steroids. - will repeat chest Xray and sputum culture. -May need evaluation for trach and PEG Acute stroke with right upper extremity weakness on - CT head showed embolic infarcts. Carotid doppler showed no significant stenosis - continue aspirin and statin - patient's lovenox was increased to 80 mg SC daily . He still has some weakness on the right side but improving Hypotension -Currently on Levophed Hyperkalemia in the context of acute renal failure -Status post hyperkalemia protocol followed. -We will repeat the potassium level this afternoon. Acute kidney injury with chronic kidney disease stage II -Status post right femoral catheter placement for emergent dialysis. He received the dialysis yesterday and possibly plan for another session today. -His potassium trended down today at 5 White count jumped to 19.3 [?sux intervention] -He is still on Zosyn. -Due to ongoing high white count we are continuing with the Zosyn blood cultures has been scheduled will follow up on that as well. Type II diabetes - blood sugars 98-140. Continue lantus 17 units qhs and 5 units qam I switched this to NPH -Blood glucose is quite high probably with added acute stress Increased his NPH dose -discontinue the Lantus as it is not easy to use the long-acting insulin for titration -now BG is dropping-- 5 bid of isophane. Full code
[2020-09-10] MEDS: Sodium Chloride 0.9% 1,000 ML IV SCH (17:55)
--- NOTE | 2020-09-10 19:46 | PRG ---
DATE OF SERVICE: 09/10/2020 SUBJECTIVE: A 65-year-old gentleman, being seen for acute kidney injury. The patient remains intubated. PHYSICAL EXAMINATION: GENERAL: The patient is resting. VITAL SIGNS: Afebrile, pulse 107, breathing at 16, blood pressure 113/59. HEENT: Head normocephalic and atraumatic. Eyes intact, no ulcers. Nose intact, no ulcers. Ears intact, no ulcers. NECK: Supple. No JVD. CHEST: Symmetrical and clear. CARDIOVASCULAR: Shows S1 and S2, no rub, no murmur. GASTROINTESTINAL: Abdomen is soft, bowel sounds positive. EXTREMITIES: Show no edema or ulcers. SKIN: Shows no rash or petechiae. MUSCULOSKELETAL: Shows no joint swelling or stiffness. GENITOURINARY: Shows no Lemus or CVA tenderness. NEUROLOGIC: The patient is resting. LABORATORY DATA: Reviewed. ASSESSMENT AND PLAN: 1. Chronic kidney disease, stage 6, plan dialysis. 2. Hyperkalemia, plan dialysis. 3. Medication based on GFR appropriate. Overall prognosis is poor. Job ID: [id number]
[2020-09-10] MEDS: Atorvastatin Calcium 40 MG TAB PO SCH (20:14)
[2020-09-10] MEDS: Cholecalciferol 1,000 UNITS (25 MCG) TAB PO SCH (20:14)
[2020-09-10] MEDS: Dexamethasone 4 mg/ml Vial SLOW IVP SCH (20:14)
[2020-09-10] MEDS: Piperacillin/Tazobactam 2.25 GM in Sodium Chloride 0.9% 100 ML IVPB SCH (20:14)
[2020-09-10] MEDS: NPH, Human Insulin Isophane 300 UNIT/3 ML VIAL SC SCH (21:49)
[2020-09-11] MEDS ORDERED: Fentanyl CADD 100 ML ONE ×2 (00:39→15:05)
[2020-09-11] MEDS: Propofol 1,000 MG/100 ML VIAL IV PRN ×3 (00:44→13:32)
[2020-09-11] MEDS: Fentanyl CADD 100 ML IV SCH (00:44)
[2020-09-11] MEDS: Lorazepam 2 MG/ML VIAL SLOW IVP PRN ×2 (04:33→17:48)
[2020-09-11 04:36] LABS: #Lymphocytes 0.7 thou/uL (1.20-3.40); #Monocytes 0.6 thou/uL (0.11-0.59); #Neutrophils 18.3 thou/uL (1.40-6.50); %Basophils 0.1 % (0.0-1.0); %Lymphocytes 3.7 % (21.0-51.0); %Monocytes 2.8 % (0.0-10.0); %Neutrophils 93.4 % (42.0-75.0); Hemoglobin 12.5 g/dL (14.0-18.0); Mean Corpuscular HGB CONC 33.6 g/dL (32.0-36.0); Mean Corpuscular Hemoglobin 31.2 pg (27.0-31.0); Mean Platelet Volume 11.1 fL (7.4-10.4); Platelet Count 82 thou/uL (130-400); RBC Distribution Width 13.6 % (11.5-14.5); Red Blood Cell (RBC) Count 4.01 mill/uL (4.70-6.10); White Blood Cell (WBC) Count 19.6 thou/uL (4.8-10.8)
[2020-09-11 04:50] LABS: Anion Gap 23 mmol/L (10-20); BUN (Urea Nitrogen) 53 mg/dL (8.4-25.7); Calc. Creatinine Clearance 15 mL/min (70-130); Calcium 7.8 mg/dL (7.8-10.44); Carbon Dioxide 21 mmol/L (23-31); Chloride 98 mmol/L (98-107); Glucose 281 mg/dL (80-115); Potassium 4.7 mmol/L (3.5-5.1); Sodium 137 mmol/L (136-145)
[2020-09-11] MEDS: HumaLOG 300 UNITS/3 ML VIAL SC PRN ×4 (04:58→22:30)
[2020-09-11] MEDS: Piperacillin/Tazobactam 2.25 GM in Sodium Chloride 0.9% 100 ML IVPB SCH ×2 (07:54→20:58)
[2020-09-11] MEDS: Aspirin Chewable 81 MG TAB PO SCH (07:55)
[2020-09-11] MEDS: Zinc Sulfate 220 MG CAP PO SCH (07:55)
[2020-09-11] MEDS: Ascorbic Acid 500 mg Chewable Tablet PO SCH (07:55)
[2020-09-11] MEDS: Pantoprazole 40 MG GRANULES PACKET PO SCH (07:55)
--- NOTE | 2020-09-11 07:55 | RAD ---
Portable frontal chest radiograph: 09/11/2020 COMPARISON: 09/07/2020 HISTORY: Pneumonia FINDINGS: Stable endotracheal tube and nasogastric tube. There is extensive interstitial and alveolar opacity throughout the right lung and involving the left lung, particularly the left base. These findings appear unchanged when compared to the prior examination. Subcutaneous gas noted in the supraclavicular region and axillary region on the left on the prior study appears to have resolved. There is probable small volume residual pneumomediastinum on the left. IMPRESSION: No significant interval change in extensive interstitial and alveolar opacity, right grea ter than left.
[2020-09-11] MEDS: Apixaban 2.5 MG TAB PER TUBE SCH ×2 (08:02→20:58)
[2020-09-11] MEDS: NPH, Human Insulin Isophane 300 UNIT/3 ML VIAL SC SCH ×3 (08:26→20:59)
--- NOTE | 2020-09-11 09:19 | PRG ---
DATE OF SERVICE: 09/11/2020 35 minutes of critical care time. SUBJECTIVE: The patient remains intubated on mechanical ventilation. CT tube was somewhat high this morning, so we had to push it down and that resolved air leak. OBJECTIVE: VITAL SIGNS: His temperature is 98.8, pulse 103, blood pressure 129/62, and O2 saturation 96%. He is currently on bilevel rate 20, high pressure 3, low pressure 12, FiO2 of 50%. His x-ray has cleared up somewhat. HEENT: Unremarkable. NECK: No adenopathy or JVD. LUNGS: Coarse breath sounds. CARDIAC: S1, S2. Regular. ABDOMEN: Soft. EXTREMITIES: No edema. LABORATORY DATA: White blood cell count 19, hematocrit 37.3, and platelet count 82. Sodium 137, potassium 4.7, chloride 98, CO2 of 21, BUN 53, creatinine 6.4, glucose 281. ASSESSMENT: 1. COVID-19 pneumonia. 2. Acute hypoxic respiratory failure, requiring mechanical ventilation with somewhat improved oxygenation. 3. Thrombocytopenia, which is unchanged. 4. Acute renal failure secondary to COVID. PLAN: Slowly decrease FiO2 as tolerated. Continue dialysis. Add some NPH insulin rather than 70/30 insulin. Job ID: [id number]
--- NOTE | 2020-09-11 12:38 | PRG ---
DATE OF SERVICE: 09/11/2020 SUBJECTIVE: A 65-year-old gentleman, being seen for end-stage renal disease. The patient is resting. PHYSICAL EXAMINATION: General: The patient is awake and alert. Vital Signs: Afebrile, pulse 85, breathing at 16, blood pressure 121/67. HEENT: Head normocephalic and atraumatic. Eyes intact, no ulcers. Nose intact, no ulcers. Ears intact, no ulcers. Neck: Supple. No JVD. Chest: Symmetrical and clear. Cardiovascular: Shows S1 and S2, no rub, no murmur. Gastrointestinal: Abdomen is soft, bowel sounds positive. Extremities: Show no edema or ulcers. Skin: Shows no rash or petechiae. Musculoskeletal: Shows no joint swelling or stiffness. Genitourinary: Shows no Lemus or CVA tenderness. Neurologic: The patient is resting. LABORATORY DATA: Reviewed. ASSESSMENT AND PLAN: 1. Chronic kidney disease, stage 6. Plan dialysis tomorrow. 2. Hypertension, stable. 3. Anemia, stable. 4. Medication based on GFR, appropriate. Job ID: [id number]
--- NOTE | 2020-09-11 13:56 | PDOC.HOSPP ---
- Subjective Encounter Date: 09/11/20 Encounter Time: 11:45 Subjective: Still on vent. Is getting dialysis today. - Objective Vital Signs & Weight: Vital Signs (12 hours) Temp Pulse Resp BP Pulse Ox 09/11/20 12:00 20 09/11/20 10:48 106 H 112/65 09/11/20 10:00 22 H 09/11/20 09:04 100 122/64 09/11/20 08:00 97.1 F L 30 H 92 L 09/11/20 06:00 23 H 09/11/20 05:00 31 H 09/11/20 04:00 26 H 09/11/20 02:21 102 H 135/65 09/11/20 02:00 20 Weight Admit Weight 194 lb 12.8 oz Weight 197 lb 5.019 oz Most Recent Monitor Data Heart Rate from ECG 107 NIBP 121/62 NIBP BP-Mean 81 Respiration from ECG 30 SpO2 92 I&O: 09/10/20 09/11/20 09/12/20 06:59 06:59 06:59 Intake Total 987 1738.9 Output Total 5 5 0 Balance 982 1733.9 0 Result Diagrams: 09/11/20 04:20 09/11/20 04:20 Additional Labs: Accuchecks 09/11/20 09/10/20 09/10/20 08:12 20:28 16:30 POC Glucose 271 H 128 H 86 Hospitalist ROS - Medication Medications: Active Medications Generic Name Dose Route Start Last Admin Trade Name Freq PRN Reason Stop Dose Admin Acetaminophen 650 mg 08/28/20 21:56 09/03/20 04:27 Acetaminophen 325 Mg Tab PO 650 mg Q4H PRN Administration Headache/Fever/Mild Pain (1-3) Albuterol Sulfate 1 puff 08/28/20 22:48 08/29/20 22:56 Albuterol 200 Puff (6.7gm Inhaler) INH 1 puff Q4H PRN Administration SOB &/or Wheezing Apixaban 2.5 mg 09/11/20 09:00 09/11/20 08:02 Apixaban 2.5 Mg Tab PER TUBE 2.5 mg BID INGRID Administration Ascorbic Acid 1,000 mg 08/30/20 09:00 09/11/20 07:55 Ascorbic Acid 500 Mg Chewable Tablet PO 1,000 mg DAILY INGRID Administration Aspirin 81 mg 09/11/20 09:00 09/11/20 07:55 Aspirin Chewable 81 Mg Tab PO 81 mg DAILY INGRID Administration Atorvastatin Calcium 40 mg 09/04/20 21:00 09/10/20 20:14 Atorvastatin Calcium 40 Mg Tab PO 40 mg HS INGRID Administration Cholecalciferol 5,000 units 09/05/20 21:00 09/10/20 20:14 Cholecalciferol 1,000 Units (25 Mcg) Tab PO 5,000 units HS INGRID Administration Dexamethasone 6 mg 08/29/20 21:00 09/10/20 20:14 Dexamethasone 4 Mg/Ml Vial SLOW IVP 6 mg Q24H INGRID Administration Dextrose/Water 25 gm 08/28/20 22:33 09/09/20 21:28 Dextrose 50% Abboject 50 Ml Syringe SLOW IVP 25 gm PRN PRN Administration Hypoglycemia Guaifenesin/Dextromethorphan 15 ml 08/28/20 21:56 09/07/20 00:02 Guaifenesin Dm 100-10/5 Ml Udcup PO 15 ml Q4H PRN Administration Cough Sodium Chloride 1,000 mls @ 30 mls/hr 09/06/20 17:15 09/10/20 17:55 Normal Saline 0.9% IV 1,000 mls .Q24H INGRID Administration Fentanyl 100 mls @ 0 mls/hr 09/07/20 16:00 09/11/20 00:44 Fentanyl Cadd IV 10/07/20 16:00 100 mls INF INGRID Administration Protocol Per Protocol Norepinephrine Bitartrate 250 mls @ 0 mls/hr 09/08/20 10:15 09/09/20 01:26 Levophed IVPB 250 mls INF INGRID Administration Piperacillin Sod/Tazobactam 100 mls @ 200 mls/hr 09/10/20 20:00 09/11/20 07:54 Sod 2.25 gm/ Sodium Chloride IVPB 100 mls 08,1999 INGRID Administration Insulin Human Lispro 0 units 08/28/20 22:33 09/11/20 08:24 Humalog 300 Units/3 Ml Vial SC 4 unit .MILD SLIDING SCALE PRN Administration Mild Correctional Scale Insulin Human Lispro 0 units 08/30/20 01:38 08/30/20 21:39 Humalog 300 Units/3 Ml Vial SC 3 unit .BEDTIME SLIDING SC PRN Administration Bedtime Correctional Scale Insulin Human NPH 15 unit 09/11/20 09:00 09/11/20 11:23 Nph, Human Insulin Isophane 300 Unit/3 Ml Vial SC 10 units BID INGRID Administration Lorazepam 2 mg 09/07/20 16:00 09/11/20 04:33 Lorazepam 2 Mg/Ml Vial SLOW IVP 10/07/20 16:00 2 mg Q1H PRN Administration Breakthrough agitation Pantoprazole Sodium 40 mg 09/11/20 09:00 09/11/20 07:55 Pantoprazole 40 Mg Granules Packet PO 40 mg DAILY INGRID Administration Propofol 1,000 mg 09/07/20 16:00 09/11/20 07:54 Propofol 1,000 Mg/100 Ml Vial IV 10/07/20 16:00 1,000 mg INF PRN Administration TO ACHIEVE GOAL RASS Protocol Sodium Chloride 10 ml 09/04/20 20:06 09/11/20 07:55 Flush - Normal Saline 10 Ml Syringe IVF 10 ml PRN PRN Administration Saline Flush Vecuronium [place] 10 mg 09/07/20 15:54 09/07/20 16:06 Vecuronium 10 Mg Vial IV 10 mg Q1H PRN Administration MOVEMENT Zinc Sulfate 220 mg 08/30/20 09:00 09/11/20 07:55 Zinc Sulfate 220 Mg Cap PO 220 mg DAILY INGRID Administration Hospitalist Exam Vitals: Vital Signs (12 hours) Temp Pulse Resp BP Pulse Ox 09/11/20 12:00 20 09/11/20 10:48 106 H 112/65 09/11/20 10:00 22 H 09/11/20 09:04 100 122/64 09/11/20 08:00 97.1 F L 30 H 92 L 09/11/20 06:00 23 H 09/11/20 05:00 31 H 09/11/20 04:00 26 H 09/11/20 02:21 102 H 135/65 09/11/20 02:00 20 Weight Admit Weight 194 lb 12.8 oz Weight 197 lb 5.019 oz Most Recent Monitor Data Heart Rate from ECG 107 NIBP 121/62 NIBP BP-Mean 81 Respiration from ECG 30 SpO2 92 General Appearance: NAD General - other findings: On vent Eye: PERRL ENT: normocephalic atraumatic Neck: supple Heart: RRR, normal peripheral pulses Respiratory: normal chest expansion Gastrointestinal: soft, normal bowel sounds Extremities: 1+ LE edema Musculoskeletal: generalized weakness Psychiatric: somnolent, lethargic Hosp A/P - Plan 65 year old male presented with respiratory failure and admitted for COVID pneumonia Acute hypoxic respiratory failure secondary to COVID- worsening -Status post intubation - on - Repeat chest Xray 09/05 showed worsening. s/p remdesivir, convalescent plasma 09/03. Continue zosyn day 02/20 and steroids. - will repeat chest Xray and sputum culture. -May need evaluation for trach and PEG Acute stroke with right upper extremity weakness on - CT head showed embolic infarcts. Carotid doppler showed no significant steno sis - continue aspirin and statin - patient's lovenox was increased to 80 mg SC daily . He still has some weakness on the right side but improving Hypotension -Currently on Levophed Hyperkalemia in the context of acute renal failure -Status post hyperkalemia protocol followed. -We will repeat the potassium level this afternoon. Acute kidney injury with chronic kidney disease stage II -Status post right femoral catheter placement for emergent dialysis. He received the dialysis yesterday and possibly plan for another session today. -His potassium trended down today at 5 White count jumped to 19.3 [?sux intervention] -He is still on Zosyn. -Due to ongoing high white count we are continuing with the Zosyn blood cultures has been scheduled will follow up on that as well. Type II diabetes - blood sugars 98-140. Continue lantus 17 units qhs and 5 units qam I switched this to NPH -Blood glucose is quite high probably with added acute stress Increased his NPH dose -discontinue the Lantus as it is not easy to use the long-acting insulin for titration -now BG is dropping-- on humulin Full code
[2020-09-11] MEDS: Sodium Chloride 0.9% 1,000 ML IV SCH (16:41)
[2020-09-11] MEDS: Dexamethasone 4 mg/ml Vial SLOW IVP SCH (20:58)
[2020-09-11] MEDS: Cholecalciferol 1,000 UNITS (25 MCG) TAB PO SCH (20:58)
[2020-09-11] MEDS: Atorvastatin Calcium 40 MG TAB PO SCH (20:58)
[2020-09-12] MEDS: Propofol 1,000 MG/100 ML VIAL IV PRN ×2 (04:41→17:27)
[2020-09-12 05:52] LABS: #Eosinphils 0.1 thou/uL (0.0-0.7); #Lymphocytes 0.7 thou/uL (1.20-3.40); #Monocytes 0.7 thou/uL (0.11-0.59); #Neutrophils 18.3 thou/uL (1.40-6.50); %Eosinophils 0.3 % (0.0-10.0); %Lymphocytes 3.4 % (21.0-51.0); %Monocytes 3.5 % (0.0-10.0); %Neutrophils 92.8 % (42.0-75.0); Hemoglobin 12.5 g/dL (14.0-18.0); Mean Corpuscular HGB CONC 32.1 g/dL (32.0-36.0); Mean Corpuscular Hemoglobin 30.9 pg (27.0-31.0); Mean Corpuscular Volume 96.2 fL (78.0-98.0); Mean Platelet Volume 11.2 fL (7.4-10.4); Platelet Count 104 thou/uL (130-400); RBC Distribution Width 13.8 % (11.5-14.5); Red Blood Cell (RBC) Count 4.06 mill/uL (4.70-6.10); White Blood Cell (WBC) Count 19.7 thou/uL (4.8-10.8)
[2020-09-12 06:19] LABS: Anion Gap 25 mmol/L (10-20); BUN (Urea Nitrogen) 80 mg/dL (8.4-25.7); Calc. Creatinine Clearance 11 mL/min (70-130); Calcium 7.6 mg/dL (7.8-10.44); Carbon Dioxide 20 mmol/L (23-31); Chloride 97 mmol/L (98-107); Glucose 395 mg/dL (80-115); Potassium 6.4 mmol/L (3.5-5.1); Sodium 136 mmol/L (136-145)
[2020-09-12] MEDS: HumaLOG 300 UNITS/3 ML VIAL SC PRN ×3 (06:22→16:58)
[2020-09-12] MEDS ORDERED: Fentanyl CADD 100 ML ONE (08:43)
[2020-09-12] MEDS ORDERED: Fentanyl CADD 0 ML ONE (08:43)
--- NOTE | 2020-09-12 08:43 | PRG ---
DATE OF SERVICE: 09/12/2020 TIME SPENT: 35 minutes of critical care time. SUBJECTIVE: The patient remains intubated, on mechanical ventilation. He is heavily sedated. OBJECTIVE: VITAL SIGNS: Temperature 97.1, pulse 118, blood pressure 131/73, O2 saturation 94%. 24-hour intake 281, output zero. Weight 200 pounds. HEENT: Unremarkable. NECK: No JVD. LUNGS: Inspiratory crackles bilaterally. CARDIAC: S1 and S2. Regular. ABDOMEN: Soft. EXTREMITIES: Edematous. LABORATORY DATA: Sodium 136, potassium 6.4, chloride 97, CO2 of 20, BUN 80, creatinine 8.6, glucose 395. White blood cell count 19.7, hematocrit 39, and platelet count 104. X-ray continues to show diffuse bilateral infiltrates. ASSESSMENT: 1. COVID-19 pneumonia. 2. Chronic kidney disease, requiring hemodialysis. PLAN: He needs dialysis for fluid removal today and to control his hyperkalemia. He is not weanable at this time secondary to hypoxemia. We are continuing present care with the exception of increasing the NPH insulin dose because of continued hyperglycemia. Job ID: [id number]
[2020-09-12] MEDS: Fentanyl CADD 100 ML IV SCH (08:46)
[2020-09-12] MEDS: Piperacillin/Tazobactam 2.25 GM in Sodium Chloride 0.9% 100 ML IVPB SCH ×2 (09:12→21:58)
--- NOTE | 2020-09-12 09:12 | RAD ---
CHEST 1 VIEW: Date: 09/12/2020 INDICATION: History of pneumonia. COMPARISON: Prior exam dated 09/11/2020. IMPRESSION: Bilateral air space disease persists. Patient remains intubated with gastric catheter placement. No p neumothorax is evident. POS: BH
[2020-09-12] MEDS: Pantoprazole 40 MG GRANULES PACKET PO SCH (09:13)
[2020-09-12] MEDS: Aspirin Chewable 81 MG TAB PO SCH (09:13)
[2020-09-12] MEDS: Zinc Sulfate 220 MG CAP PO SCH (09:13)
[2020-09-12] MEDS: Ascorbic Acid 500 mg Chewable Tablet PO SCH (09:13)
[2020-09-12] MEDS: Apixaban 2.5 MG TAB PER TUBE SCH ×2 (09:13→21:59)
[2020-09-12] MEDS: NPH, Human Insulin Isophane 300 UNIT/3 ML VIAL SC SCH ×2 (09:16→22:00)
[2020-09-12] MEDS ORDERED: Heparin 10,000 UNITS/ 10 ML VIAL ONE (09:47)
--- NOTE | 2020-09-12 10:10 | PRG ---
DATE OF SERVICE: SUBJECTIVE: A 65-year-old male being seen for acute kidney injury. Patient is dialysis dependent. PHYSICAL EXAMINATION: General: The patient is resting. Vital Signs: Afebrile. Pulse 75, breathing 16, blood pressure 130/73. HEENT: Head normocephalic and atraumatic. Eyes intact, no ulcers. Nose intact, no ulcers. Ears intact, no ulcers. Neck: Supple. No JVD. Chest: Symmetrical and clear. Cardiovascular: Shows S1 and S2, no rub, no murmur. Gastrointestinal: Abdomen is soft, bowel sounds positive. Extremities: Show no edema or ulcers. Skin: Shows no rash or petechiae. Musculoskeletal: Shows no joint swelling or stiffness. Genitourinary: Shows no Lemus or CVA tenderness. Neurologic: Patient is resting. LABORATORY DATA: Hemoglobin 12.5. Potassium is 6.4. ASSESSMENT AND PLAN: 1. Stage 6 chronic kidney disease. Plan dialysis. 2. Hyperkalemia. Plan dialysis. 3. Metabolic acidosis. Plan dialysis. 4. Overall prognosis is poor. Dialysis nurse was called. Job ID: [id number]
--- NOTE | 2020-09-12 13:06 | PDOC.HOSPP ---
- Subjective Encounter Date: 09/12/20 Encounter Time: 11:00 Subjective: Patient seen and examined bedside today, patient is on ventilator, patient is receiving hemodialysis - Objective Vital Signs & Weight: Vital Signs (12 hours) Temp Pulse Resp BP Pulse Ox 09/12/20 12:00 99.5 F 20 09/12/20 11:03 120 H 109/67 09/12/20 10:00 20 09/12/20 08:00 100.0 F H 20 93 L 09/12/20 07:44 120 H 131/72 09/12/20 06:00 20 09/12/20 04:00 97.1 F L 20 09/12/20 02:05 122 H 95/56 L 09/12/20 02:00 20 Weight Admit Weight 194 lb 12.8 oz Weight 200 lb 9.93 oz Most Recent Monitor Data Heart Rate from ECG 120 NIBP 118/66 NIBP BP-Mean 83 Respiration from ECG 20 SpO2 93 I&O: 09/11/20 09/12/20 09/13/20 06:59 06:59 06:59 Intake Total 1738.9 2081.3 160 Output Total 5 0 0 Balance 1733.9 2081.3 160 Result Diagrams: 09/12/20 04:40 09/12/20 04:40 Additional Labs: Accuchecks 09/12/20 09/11/20 09/11/20 09:34 22:23 17:08 POC Glucose 336 H 317 H 269 H Radiology Reviewed by me: Yes EKG Reviewed by me: Yes Hospitalist ROS - Review of Systems ROS unobtainable: due to endotracheal tube - Medication Medications: Active Medications Generic Name Dose Route Start Last Admin Trade Name Freq PRN Reason Stop Dose Admin Acetaminophen 650 mg 08/28/20 21:56 09/03/20 04:27 Acetaminophen 325 Mg Tab PO 650 mg Q4H PRN Administration Headache/Fever/Mild Pain (1-3) Albuterol Sulfate 1 puff 08/28/20 22:48 08/29/20 22:56 Albuterol 200 Puff (6.7gm Inhaler) INH 1 puff Q4H PRN Administration SOB &/or Wheezing Apixaban 2.5 mg 09/11/20 09:00 09/12/20 09:13 Apixaban 2.5 Mg Tab PER TUBE 2.5 mg BID INGRID Administration Ascorbic Acid 1,000 mg 08/30/20 09:00 09/12/20 09:13 Ascorbic Acid 500 Mg Chewable Tablet PO 1,000 mg DAILY INGRID Administration Aspirin 81 mg 09/11/20 09:00 09/12/20 09:13 Aspirin Chewable 81 Mg Tab PO 81 mg DAILY INGRID Administration Atorvastatin Calcium 40 mg 09/04/20 21:00 09/11/20 20:58 Atorvastatin Calcium 40 Mg Tab PO 40 mg HS INGRID Administration Cholecalciferol 5,000 units 09/05/20 21:00 09/11/20 20:58 Cholecalciferol 1,000 Units (25 Mcg) Tab PO 5,000 units HS INGRID Administration Dexamethasone 6 mg 08/29/20 21:00 09/11/20 20:58 Dexamethasone 4 Mg/Ml Vial SLOW IVP 6 mg Q24H INGRID Administration Dextrose/Water 25 gm 08/28/20 22:33 09/09/20 21:28 Dextrose 50% Abboject 50 Ml Syringe SLOW IVP 25 gm PRN PRN Administration Hypoglycemia Guaifenesin/Dextromethorphan 15 ml 08/28/20 21:56 09/07/20 00:02 Guaifenesin Dm 100-10/5 Ml Udcup PO 15 ml Q4H PRN Administration Cough Sodium Chloride 1,000 mls @ 30 mls/hr 09/06/20 17:15 09/11/20 16:41 Normal Saline 0.9% IV 1,000 mls .Q24H INGRID Administration Fentanyl 100 mls @ 0 mls/hr 09/07/20 16:00 09/12/20 08:46 Fentanyl Cadd IV 10/07/20 16:00 100 mls INF INGRID Administration Protocol Per Protocol Norepinephrine Bitartrate 250 mls @ 0 mls/hr 09/08/20 10:15 09/09/20 01:26 Levophed IVPB 250 mls INF INGRID Administration Piperacillin Sod/Tazobactam 100 mls @ 200 mls/hr 09/10/20 20:00 09/12/20 09:12 Sod 2.25 gm/ Sodium Chloride IVPB 100 mls 0800,2000 INRGID Administration Insulin Human Lispro 0 units 08/28/20 22:33 09/12/20 09:36 Humalog 300 Units/3 Ml Vial SC 5 unit .MILD SLIDING SCALE PRN Administration Mild Correctional Scale Insulin Human Lispro 0 units 08/30/20 01:38 08/30/20 21:39 Humalog 300 Units/3 Ml Vial SC 3 unit .BEDTIME SLIDING SC PRN Administration Bedtime Correctional Scale Insulin Human NPH 30 unit 09/12/20 08:30 09/12/20 09:16 Nph, Human Insulin Isophane 300 Unit/3 Ml Vial SC 30 unit BID INGRID Administration Lorazepam 2 mg 09/07/20 16:00 09/11/20 17:48 Lorazepam 2 Mg/Ml Vial SLOW IVP 10/07/20 16:00 2 mg Q1H PRN Administration Breakthrough agitation Pantoprazole Sodium 40 mg 09/11/20 09:00 09/12/20 09:13 Pantoprazole 40 Mg Granules Packet PO 40 mg DAILY INGRID Administration Propofol 1,000 mg 09/07/20 16:00 09/12/20 04:41 Propofol 1,000 Mg/100 Ml Vial IV 10/07/20 16:00 1,000 mg INF PRN Administration TO ACHIEVE GOAL RASS Protocol Sodium Chloride 10 ml 09/04/20 20:06 09/11/20 07:55 Flush - Normal Saline 10 Ml Syringe IVF 10 ml PRN PRN Administration Saline Flush Vecuronium [place] 10 mg 09/07/20 15:54 09/07/20 16:06 Vecuronium 10 Mg Vial IV 10 mg Q1H PRN Administration MOVEMENT Zinc Sulfate 220 mg 08/30/20 09:00 09/12/20 09:13 Zinc Sulfate 220 Mg Cap PO 220 mg DAILY INGRID Administration Hospitalist Exam Vitals: Vital Signs (12 hours) Temp Pulse Resp BP Pulse Ox 09/12/20 12:00 99.5 F 09/12/20 11:03 120 H 109/67 09/12/20 10:00 09/12/20 08:00 100.0 F H 20 93 L 09/12/20 07:44 120 H 131/72 09/12/20 06:00 20 09/12/20 04:00 97.1 F L 09/12/20 02:05 122 H 95/56 L 09/12/20 02:00 20 Weight Admit Weight 194 lb 12.8 oz Weight 200 lb 9.93 oz Most Recent Monitor Data Heart Rate from ECG 120 NIBP 118/66 NIBP BP-Mean 83 Respiration from ECG 20 SpO2 93 General Appearance: NAD, ill appearing Eye: PERRL ENT: normocephalic atraumatic Neck: supple, symmetric, no JVD Heart: no murmur, no gallops, no rubs Respiratory: no wheezes, no rales, no ronchi Gastrointestinal: soft, non-distended, normal bowel sounds Extremities: no cyanosis, no clubbing Hosp A/P (1) Acute respiratory failure due to COVID-19 Code(s): U07.1 - COVID-19; J96.00 - ACUTE RESPIRATORY FAILURE, UNSP W HYPOXIA OR HYPERCAPNIA Status: Acute (2) Pneumonia due to 2019 novel coronavirus Code(s): U07.1 - COVID-19; J12.82 - PNEUMONIA DUE TO CORONAVIRUS DISEASE 2019 Status: Acute (3) Acute CVA (cerebrovascular accident) Code(s): I63.9 - CEREBRAL INFARCTION, UNSPECIFIED Status: Acute (4) ESRD (end stage renal disease) on dialysis Code(s): N18.6 - END STAGE RENAL DISEASE; Z99.2 - DEPENDENCE ON RENAL DIALYSIS Status: Acute (5) Hyperkalemia Code(s): E87.5 - HYPERKALEMIA Status: Acute (6) Thrombocytopenia Code(s): D69.6 - THROMBOCYTOPENIA, UNSPECIFIED Status: Acute (7) Diabetes type 2, controlled Code(s): E11.9 - TYPE 2 DIABETES MELLITUS WITHOUT COMPLICATIONS Status: Acute Qualifiers: Diabetes mellitus long term acute care registered nurse insulin use: with long term acute care registered nurse use Diabetes mellitus complication status: with kidney complications Chronic kidney disease stage: on chronic dialysis (8) Hypertension Code(s): I10 - ESSENTIAL (PRIMARY) HYPERTENSION Status: Chronic Qualifiers: Hypertension type: essential hypertension Qualified Code(s): I10 - Essential (primary) hypertension - Plan old records reviewed/req, continue antibiotics, respiratory therapy Continue hemodialysis as per nephrology Ventilator as per pulmonology Medications reviewed and continue provide symptomatic and supportive care Prognosis guarded Continue Cathie
[2020-09-12] MEDS: Sodium Chloride 0.9% 1,000 ML IV SCH (17:00)
[2020-09-12] MEDS: Cholecalciferol 1,000 UNITS (25 MCG) TAB PO SCH (21:58)
[2020-09-12] MEDS: Atorvastatin Calcium 40 MG TAB PO SCH (21:59)
[2020-09-12] MEDS: Dexamethasone 4 mg/ml Vial SLOW IVP SCH (21:59)
[2020-09-13 04:30] LABS: #Eosinphils 0.1 thou/uL (0.0-0.7); #Lymphocytes 0.6 thou/uL (1.20-3.40); #Monocytes 0.6 thou/uL (0.11-0.59); #Neutrophils 13.1 thou/uL (1.40-6.50); %Eosinophils 0.6 % (0.0-10.0); %Lymphocytes 4.3 % (21.0-51.0); %Monocytes 4.1 % (0.0-10.0); Hemoglobin 12.1 g/dL (14.0-18.0); Mean Corpuscular HGB CONC 32.2 g/dL (32.0-36.0); Mean Corpuscular Hemoglobin 30.1 pg (27.0-31.0); Mean Corpuscular Volume 93.6 fL (78.0-98.0); Mean Platelet Volume 11.2 fL (7.4-10.4); Platelet Count 83 thou/uL (130-400); RBC Distribution Width 13.7 % (11.5-14.5); Red Blood Cell (RBC) Count 4.01 mill/uL (4.70-6.10); White Blood Cell (WBC) Count 14.4 thou/uL (4.8-10.8)
[2020-09-13 04:55] LABS: Anion Gap 18 mmol/L (10-20); BUN (Urea Nitrogen) 62 mg/dL (8.4-25.7); Calc. Creatinine Clearance 14 mL/min (70-130); Calcium 7.6 mg/dL (7.8-10.44); Carbon Dioxide 26 mmol/L (23-31); Chloride 97 mmol/L (98-107); Glucose 247 mg/dL (80-115); Potassium 5.1 mmol/L (3.5-5.1); Sodium 136 mmol/L (136-145)
[2020-09-13] MEDS: HumaLOG 300 UNITS/3 ML VIAL SC PRN ×3 (05:27→15:58)
[2020-09-13] MEDS: Propofol 1,000 MG/100 ML VIAL IV PRN ×2 (07:53→23:43)
[2020-09-13] MEDS: Piperacillin/Tazobactam 2.25 GM in Sodium Chloride 0.9% 100 ML IVPB SCH ×2 (07:53→20:34)
[2020-09-13] MEDS ORDERED: Fentanyl CADD 100 ML ONE (08:18)
--- NOTE | 2020-09-13 08:19 | RAD ---
Exam: Chest one view HISTORY:Pneumonia Comparison: 09/12/2020 FINDINGS: Lines and tubes: Stable endotracheal and nasogastric tube Cardiac silhouette:There is cardiomegaly Aorta: Unremarkable Pulmonary vessels: Normal Costophrenic angles: Clear LUNGS: Stable multifocal interstitial and alveolar opacities Pneumothorax: None Osseous abnormalities: None IMPRESSION: No significant interval change
[2020-09-13] MEDS: Zinc Sulfate 220 MG CAP PO SCH (08:39)
[2020-09-13] MEDS: Fentanyl CADD 100 ML IV SCH (08:39)
[2020-09-13] MEDS: Pantoprazole 40 MG GRANULES PACKET PO SCH (08:39)
[2020-09-13] MEDS: Aspirin Chewable 81 MG TAB PO SCH (08:39)
[2020-09-13] MEDS: Apixaban 2.5 MG TAB PER TUBE SCH ×2 (08:39→20:37)
[2020-09-13] MEDS: NPH, Human Insulin Isophane 300 UNIT/3 ML VIAL SC SCH ×2 (08:40→20:37)
[2020-09-13] MEDS: Ascorbic Acid 500 mg Chewable Tablet PO SCH (09:20)
--- NOTE | 2020-09-13 11:59 | PDOC.HOSPP ---
- Subjective Encounter Date: 09/13/20 Encounter Time: 11:00 Subjective: Patient is on ventilator, no overnight event, - Objective Vital Signs & Weight: Vital Signs (12 hours) Temp Pulse Resp BP Pulse Ox 09/13/20 11:13 110 H 136/67 09/13/20 10:00 20 09/13/20 08:00 97.6 F 20 90 L 09/13/20 07:39 108 H 152/70 H 09/13/20 05:24 22 H 09/13/20 03:55 21 H 09/13/20 03:53 98.2 F 09/13/20 02:06 113 H 09/13/20 02:00 21 H 09/13/20 01:00 97.9 F 09/13/20 00:16 112 H Weight Admit Weight 194 lb 12.8 oz Weight 202 lb 13.204 oz Most Recent Monitor Data Heart Rate from ECG 109 NIBP 136/67 NIBP BP-Mean 90 Respiration from ECG 21 SpO2 90 I&O: 09/12/20 09/13/20 09/14/20 06:59 06:59 06:59 Intake Total 2081.3 2138.7 80 Output Total 0 5 0 Balance 2081.3 2133.7 80 Result Diagrams: 09/13/20 03:15 09/13/20 03:15 Additional Labs: Accuchecks 09/13/20 10:15 POC Glucose 255 H Radiology Reviewed by me: Yes EKG Reviewed by me: Yes Hospitalist ROS - Review of Systems ROS unobtainable: due to endotracheal tube - Medication Medications: Active Medications Generic Name Dose Route Start Last Admin Trade Name Freq PRN Reason Stop Dose Admin Acetaminophen 650 mg 08/28/20 21:56 09/03/20 04:27 Acetaminophen 325 Mg Tab PO 650 mg Q4H PRN Administration Headache/Fever/Mild Pain (1-3) Albuterol Sulfate 1 puff 08/28/20 22:48 08/29/20 22:56 Albuterol 200 Puff (6.7gm Inhaler) INH 1 puff Q4H PRN Administration SOB &/or Wheezing Apixaban 2.5 mg 09/11/20 09:00 09/13/20 08:39 Apixaban 2.5 Mg Tab PER TUBE 2.5 mg BID INGRID Administration Ascorbic Acid 1,000 mg 08/30/20 09:00 09/13/20 09:20 Ascorbic Acid 500 Mg Chewable Tablet PO 1,000 mg DAILY INGRID Administration Aspirin 81 mg 09/11/20 09:00 09/13/20 08:39 Aspirin Chewable 81 Mg Tab PO 81 mg DAILY INGRID Administration Atorvastatin Calcium 40 mg 09/04/20 21:00 09/12/20 21:59 Atorvastatin Calcium 40 Mg Tab PO 40 mg HS INGRID Administration Cholecalciferol 5,000 units 09/05/20 21:00 09/12/20 21:58 Cholecalciferol 1,000 Units (25 Mcg) Tab PO 5,000 units HS INGRID Administration Dexamethasone 6 mg 08/29/20 21:00 09/12/20 21:59 Dexamethasone 4 Mg/Ml Vial SLOW IVP 6 mg Q24H INGRID Administration Dextrose/Water 25 gm 08/28/20 22:33 09/09/20 21:28 Dextrose 50% Abboject 50 Ml Syringe SLOW IVP 25 gm PRN PRN Administration Hypoglycemia Guaifenesin/Dextromethorphan 15 ml 08/28/20 21:56 09/07/20 00:02 Guaifenesin Dm 100-10/5 Ml Udcup PO 15 ml Q4H PRN Administration Cough Sodium Chloride 1,000 mls @ 30 mls/hr 09/06/20 17:15 09/12/20 17:00 Normal Saline 0.9% IV 1,000 mls .Q24H INGRID Administration Fentanyl 100 mls @ 0 mls/hr 09/07/20 16:00 09/13/20 08:39 Fentanyl Cadd IV 10/07/20 16:00 100 mls INF INGRID Administration Protocol Per Protocol Norepinephrine Bitartrate 250 mls @ 0 mls/hr 09/08/20 10:15 09/09/20 01:26 Levophed IVPB 250 mls INF INGRID Administration Piperacillin Sod/Tazobactam 100 mls @ 200 mls/hr 09/10/20 20:00 09/13/20 0 7:53 Sod 2.25 gm/ Sodium Chloride IVPB 100 mls 08,1999 INGRID Administration Insulin Human Lispro 0 units 08/28/20 22:33 09/13/20 10:29 Humalog 300 Units/3 Ml Vial SC 4 unit .MILD SLIDING SCALE PRN Administration Mild Correctional Scale Insulin Human Lispro 0 units 08/30/20 01:38 08/30/20 21:39 Humalog 300 Units/3 Ml Vial SC 3 unit .BEDTIME SLIDING SC PRN Administration Bedtime Correctional Scale Insulin Human NPH 30 unit 09/12/20 08:30 09/13/20 08:40 Nph, Human Insulin Isophane 300 Unit/3 Ml Vial SC 30 unit BID INGRID Administration Lorazepam 2 mg 09/07/20 16:00 09/11/20 17:48 Lorazepam 2 Mg/Ml Vial SLOW IVP 10/07/20 16:00 2 mg Q1H PRN Administration Breakthrough agitation Pantoprazole Sodium 40 mg 09/11/20 09:00 09/13/20 08:39 Pantoprazole 40 Mg Granules Packet PO 40 mg DAILY INGRID Administration Propofol 1,000 mg 09/07/20 16:00 09/13/20 07:53 Propofol 1,000 Mg/100 Ml Vial IV 10/07/20 16:00 1,000 mg INF PRN Administration TO ACHIEVE GOAL RASS Protocol Sodium Chloride 10 ml 09/04/20 20:06 09/11/20 07:55 Flush - Normal Saline 10 Ml Syringe IVF 10 ml PRN PRN Administration Saline Flush Vecuronium [place] 10 mg 09/07/20 15:54 09/07/20 16:06 Vecuronium 10 Mg Vial IV 10 mg Q1H PRN Administration MOVEMENT Zinc Sulfate 220 mg 08/30/20 09:00 09/13/20 08:39 Zinc Sulfate 220 Mg Cap PO 220 mg DAILY INGRID Administration Hospitalist Exam Vitals: Vital Signs (12 hours) Temp Pulse Resp BP Pulse Ox 09/13/20 11:13 110 H 136/67 09/13/20 10:00 20 09/13/20 08:00 97.6 F 20 90 L 09/13/20 07:39 108 H 152/70 H 09/13/20 05:24 22 H 09/13/20 03:55 21 H 09/13/20 03:53 98.2 F 09/13/20 02:06 113 H 09/13/20 02:00 21 H 09/13/20 01:00 97.9 F 09/13/20 00:16 112 H Weight Admit Weight 194 lb 12.8 oz Weight 202 lb 13.204 oz Most Recent Monitor Data Heart Rate from ECG 109 NIBP 136/67 NIBP BP-Mean 90 Respiration from ECG 21 SpO2 90 General Appearance: NAD, awake alert Eye: PERRL, anicteric sclera ENT: normocephalic atraumatic, no oropharyngeal lesions Neck: supple, symmetric, no JVD Heart: RRR, no murmur, no gallops, no rubs Respiratory: no wheezes, no rales, no ronchi Gastrointestinal: soft, non-distended, normal bowel sounds Extremities: no cyanosis, 1+ LE edema Skin: normal turgor Hosp A/P (1) Acute respiratory failure due to COVID-19 Code(s): U07.1 - COVID-19; J96.00 - ACUTE RESPIRATORY FAILURE, UNSP W HYPOXIA OR HYPERCAPNIA Status: Acute (2) Pneumonia due to 2019 novel coronavirus Code(s): U07.1 - COVID-19; J12.82 - PNEUMONIA DUE TO CORONAVIRUS DISEASE 2019 Status: Acute (3) Acute CVA (cerebrovascular accident) Code(s): I63.9 - CEREBRAL INFARCTION, UNSPECIFIED Status: Acute (4) ESRD (end stage renal disease) on dialysis Code(s): N18.6 - END STAGE RENAL DISEASE; Z99.2 - DEPENDENCE ON RENAL DIALYSIS Status: Acute (5) Hyperkalemia Code(s): E87.5 - HYPERKALEMIA Status: Acute (6) Thrombocytopenia Code(s): D69.6 - THROMBOCYTOPENIA, UNSPECIFIED Status: Acute (7) Diabetes type 2, controlled Code(s): E11.9 - TYPE 2 DIABETES MELLITUS WITHOUT COMPLICATIONS Status: Acute Qualifiers: Diabetes mellitus intermediate project manager insulin use: with intermediate project manager use Diabetes mellitus complication status: with kidney complications Chronic kidney disease stage: on chronic dialysis (8) Hypertension Code(s): I10 - ESSENTIAL (PRIMARY) HYPERTENSION Status: Chronic Qualifiers: Hypertension type: essential hypertension Qualified Code(s): I10 - Essential (primary) hypertension - Plan old records reviewed/req, continue antibiotics, respiratory therapy Continue hemodialysis as per nephrology Ventilator as per pulmonology Medications reviewed and continue provide symptomatic and supportive care Prognosis guarded Continue Zosyn Eliquis for DVT prophylaxis
--- NOTE | 2020-09-13 15:11 | PRG ---
DATE OF SERVICE: 09/13/2020 SUBJECTIVE: A 65-year-old gentleman being seen for end-stage kidney disease. The patient is resting. PHYSICAL EXAMINATION: GENERAL: The patient is resting. VITAL SIGNS: Pulse 85, breathing 16, blood pressure 142/68. HEENT: Head normocephalic and atraumatic. Eyes intact, no ulcers. Nose intact, no ulcers. Ears intact, no ulcers. Neck: Supple. No JVD. Chest: Symmetrical and clear. Cardiovascular: Shows S1 and S2, no rub, no murmur. Gastrointestinal: Abdomen is soft, bowel sounds positive. Extremities: Show no edema or ulcers. Skin: Shows no rash or petechiae. Musculoskeletal: Shows no joint swelling or stiffness. Genitourinary: Shows no Lemus or CVA tenderness. Neurologic: The patient is resting. LABORATORY DATA: Hemoglobin 12.1. Potassium 5.1. ASSESSMENT AND PLAN: 1. Chronic kidney disease, stage 6. Plan dialysis on Thursday, Thursday, Thursday. Discussed dialysis options with family. Family wants to pursue dialysis. 2. Hypertension stable. 3. Metabolic acidosis, stable. We will plan dialysis for tomorrow. Job ID: [id number]
[2020-09-13] MEDS: Sodium Chloride 0.9% 1,000 ML IV SCH (17:41)
[2020-09-13] MEDS: Dexamethasone 4 mg/ml Vial SLOW IVP SCH (20:37)
[2020-09-13] MEDS: Cholecalciferol 1,000 UNITS (25 MCG) TAB PO SCH (20:37)
[2020-09-13] MEDS: Atorvastatin Calcium 40 MG TAB PO SCH (20:37)
--- NOTE | 2020-09-13 22:17 | PRG ---
DATE OF SERVICE: 09/13/2020 OBJECTIVE: VITAL SIGNS: Heart rate is 109, respiratory rate 21, FiO2 of 50, blood pressure 133/82. LUNGS: Remarkably equal breath sounds. HEART: Regular rhythm. ABDOMEN: Soft. EXTREMITIES: Without asymmetry. Intake and outputs positive 2132. His urine output is essentially anuric. White count 14.4, hemoglobin 12.1, platelets 83,000. Sodium 136, potassium 5.1, chloride 97, bicarb 26, BUN 62, creatinine 6.8. IMPRESSION: COVID pneumonia, respiratory failure. End-stage kidney disease, now on Thursday, Thursday, Thursday dialysis. Dr. Soliz had a meeting with family, discussed dialysis today. His acid-base status and electrolytes are stable today. There is a plan for dialysis in the morning. Critical care time 30 min Job ID: [id number] MTDD
[2020-09-14 05:07] LABS: #Eosinphils 0.1 thou/uL (0.0-0.7); #Lymphocytes 0.6 thou/uL (1.20-3.40); #Monocytes 0.3 thou/uL (0.11-0.59); #Neutrophils 11.5 thou/uL (1.40-6.50); %Eosinophils 0.5 % (0.0-10.0); %Lymphocytes 4.6 % (21.0-51.0); %Monocytes 2.7 % (0.0-10.0); %Neutrophils 92.2 % (42.0-75.0); Hemoglobin 11.5 g/dL (14.0-18.0); Mean Corpuscular HGB CONC 31.5 g/dL (32.0-36.0); Mean Corpuscular Hemoglobin 29.1 pg (27.0-31.0); Mean Corpuscular Volume 92.2 fL (78.0-98.0); Mean Platelet Volume 11.2 fL (7.4-10.4); Platelet Count 88 thou/uL (130-400); RBC Distribution Width 13.5 % (11.5-14.5); Red Blood Cell (RBC) Count 3.95 mill/uL (4.70-6.10); White Blood Cell (WBC) Count 12.5 thou/uL (4.8-10.8)
[2020-09-14 05:48] LABS: Anion Gap 20 mmol/L (10-20); BUN (Urea Nitrogen) 94 mg/dL (8.4-25.7); Calc. Creatinine Clearance 11 mL/min (70-130); Calcium 7.8 mg/dL (7.8-10.44); Carbon Dioxide 22 mmol/L (23-31); Chloride 98 mmol/L (98-107); Glucose 251 mg/dL (80-115); Potassium 5.3 mmol/L (3.5-5.1); Sodium 135 mmol/L (136-145)
[2020-09-14] MEDS: HumaLOG 300 UNITS/3 ML VIAL SC PRN ×3 (06:08→22:21)
--- NOTE | 2020-09-14 09:07 | RAD ---
CHEST ONE VIEW: History: Pneumonia Comparison: Prior day FINDINGS: Endotracheal tube tip in similar in location, just below the clavicles. Enteric tube tip below the di aphragm, out of the field of view. Airspace consolidation is similar without significant improvement. No pneumothorax or pneumomediastinum. Small amount of gas along the right neck. IMPRESSION: Similar examination of the chest with resolving gas along the right side of the neck. POS: HOME
[2020-09-14] MEDS: Piperacillin/Tazobactam 2.25 GM in Sodium Chloride 0.9% 100 ML IVPB SCH ×2 (09:33→20:20)
[2020-09-14] MEDS: Pantoprazole 40 MG GRANULES PACKET PO SCH (09:34)
[2020-09-14] MEDS: Zinc Sulfate 220 MG CAP PO SCH (09:34)
[2020-09-14] MEDS: Ascorbic Acid 500 mg Chewable Tablet PO SCH (09:34)
[2020-09-14] MEDS: Aspirin Chewable 81 MG TAB PO SCH (09:34)
[2020-09-14] MEDS: NPH, Human Insulin Isophane 300 UNIT/3 ML VIAL SC SCH ×2 (09:35→22:20)
[2020-09-14] MEDS: Apixaban 2.5 MG TAB PER TUBE SCH ×2 (09:40→20:20)
[2020-09-14] MEDS ORDERED: Fentanyl CADD 100 ML ONE (09:52)
--- NOTE | 2020-09-14 10:36 | PRG ---
DATE OF SERVICE: 09/14/2020 SUBJECTIVE: A 65-year-old gentleman being seen for acute kidney injury. The patient is resting and intubated. PHYSICAL EXAMINATION: General: The patient is resting. Vital Signs: Afebrile, pulse , breathing at 16, blood pressure 159/80. HEENT: Head normocephalic and atraumatic. Eyes intact, no ulcers. Nose intact, no ulcers. Ears intact, no ulcers. Neck: Supple. No JVD. Chest: Symmetrical and clear. Cardiovascular: Shows S1 and S2, no rub, no murmur. Gastrointestinal: Abdomen is soft, bowel sounds positive. Extremities: Show no edema or ulcers. Skin: Shows no rash or petechiae. Musculoskeletal: Shows no joint swelling or stiffness. Genitourinary: Shows no Lemus or CVA tenderness. Neurologic: The patient is resting. LABORATORY DATA: Lab show potassium 5.3. IMPRESSION: 1. Stage 6 chronic kidney disease, plan dialysis. 2. Hyperkalemia, plan dialysis. 3. Uremia, plan dialysis. Overall prognosis is poor. Job ID: [id number]
--- NOTE | 2020-09-14 11:39 | PRG ---
DATE OF SERVICE: 09/14/2020 This is 30 minutes of critical care time. SUBJECTIVE: The patient remains on mechanical ventilation and is currently receiving dialysis as I am examining him. OBJECTIVE: VITAL SIGNS: . Temperature 98.6, pulse 112, blood pressure 159/80. HEENT: Unremarkable. NECK: No JVD. LUNGS: Poor air movement. CARDIAC: S1 and S2. Tachycardic. ABDOMEN: Soft. EXTREMITIES: No edema. LABORATORY DATA: Sodium 135, potassium 5.3, chloride 98, CO2 of 22, BUN 94, creatinine 8.9, glucose 251. White blood cell count 12.5, hematocrit 36.4, and platelet count 88. ASSESSMENT: 1. COVID-19 pneumonia. 2. Acute hypoxic respiratory failure requiring mechanical ventilation. 3. Chronic renal failure, requiring hemodialysis. PLAN: His oxygenation is improved, but he is extremely weak in terms of respiratory status and has a very low compliance. I think he is likely facing tracheostomy unless we see improvement over the weekend. I reviewed his orders. We will continue to follow. Job ID: [id number]
--- NOTE | 2020-09-14 11:58 | PDOC.HOSPP ---
- Subjective Encounter Date: 09/14/20 Encounter Time: 10:45 Subjective: Patient seen and examined. Patient is on ventilator, no overnight events - Objective Vital Signs & Weight: Vital Signs (12 hours) Temp Pulse Resp BP 09/14/20 11:00 98.9 F 09/14/20 10:54 117 H 09/14/20 10:00 20 09/14/20 08:00 20 09/14/20 07:47 112 H 160/84 H 09/14/20 07:00 98.6 F 09/14/20 06:00 09/14/20 04:00 97.6 F 09/14/20 02:06 107 H 09/14/20 02:00 20 Weight Admit Weight 194 lb 12.8 oz Weight 203 lb 14.4 oz Most Recent Monitor Data Heart Rate from ECG 120 NIBP 138/73 NIBP BP-Mean 94 Respiration from ECG 27 SpO2 87 I&O: 09/13/20 09/14/20 09/15/20 06:59 06:59 06:59 Intake Total 2138.7 1245.8 Output Total 5 0 0 Balance 2133.7 1245.8 0 Result Diagrams: 09/14/20 03:50 09/14/20 03:50 Additional Labs: Accuchecks 09/13/20 09/13/20 09/12/20 22:34 15:52 22:27 POC Glucose 179 H 216 H 210 H 09/12/20 16:30 POC Glucose 188 H Hospitalist ROS - Review of Systems ROS unobtainable: due to endotracheal tube - Medication Medications: Active Medications Generic Name Dose Route Start Last Admin Trade Name Freq PRN Reason Stop Dose Admin Acetaminophen 650 mg 08/28/20 21:56 09/03/20 04:27 Acetaminophen 325 Mg Tab PO 650 mg Q4H PRN Administration Headache/Fever/Mild Pain (1-3) Albuterol Sulfate 1 puff 08/28/20 22:48 08/29/20 22:56 Albuterol 200 Puff (6.7gm Inhaler) INH 1 puff Q4H PRN Administration SOB &/or Wheezing Apixaban 2.5 mg 09/11/20 09:00 09/14/20 09:40 Apixaban 2.5 Mg Tab PER TUBE 2.5 mg BID INGRID Administration Ascorbic Acid 1,000 mg 08/30/20 09:00 09/14/20 09:34 Ascorbic Acid 500 Mg Chewable Tablet PO 1,000 mg DAILY INGRID Administration Aspirin 81 mg 09/11/20 09:00 09/14/20 09:34 Aspirin Chewable 81 Mg Tab PO 81 mg DAILY INGRID Administration Atorvastatin Calcium 40 mg 09/04/20 21:00 09/13/20 20:37 Atorvastatin Calcium 40 Mg Tab PO 40 mg HS INGRID Administration Cholecalciferol 5,000 units 09/05/20 21:00 09/13/20 20:37 Cholecalciferol 1,000 Units (25 Mcg) Tab PO 5,000 units HS INGRID Administration Dexamethasone 6 mg 08/29/20 21:00 09/13/20 20:37 Dexamethasone 4 Mg/Ml Vial SLOW IVP 6 mg Q24H INGRID Administration Dextrose/Water 25 gm 08/28/20 22:33 09/09/20 21:28 Dextrose 50% Abboject 50 Ml Syringe SLOW IVP 25 gm PRN PRN Administration Hypoglycemia Guaifenesin/Dextromethorphan 15 ml 08/28/20 21:56 09/07/20 00:02 Guaifenesin Dm 100-10/5 Ml Udcup PO 15 ml Q4H PRN Administration Cough Sodium Chloride 1,000 mls @ 30 mls/hr 09/06/20 17:15 09/13/20 17:41 Normal Saline 0.9% IV 1,000 mls .Q24H INGRID Administration Fentanyl 100 mls @ 0 mls/hr 09/07/20 16:00 09/13/20 08:39 Fentanyl Cadd IV 10/07/20 16:00 100 mls INF INGRID Administration Protocol Per Protocol Norepinephrine Bitartrate 250 mls @ 0 mls/hr 09/08/20 10:15 09/09/20 01:26 Levophed IVPB 250 mls INF INGRID Administration Piperacillin Sod/Tazobactam 100 mls @ 200 mls/hr 09/10/20 20:00 09/14/20 09:33 Sod 2.25 gm/ Sodium Chloride IVPB 100 mls 0800,2000 INGRID Administration Insulin Human Lispro 0 units 08/28/20 22:33 09/14/20 06:08 Humalog 300 Units/3 Ml Vial SC 4 unit .MILD SLIDING SCALE PRN Administration Mild Correctional Scale Insulin Human Lispro 0 units 08/30/20 01:38 08/30/20 21:39 Humalog 300 Units/3 Ml Vial SC 3 unit .BEDTIME SLIDING SC PRN Administration Bedtime Correctional Scale Insulin Human NPH 30 unit 09/12/20 08:30 09/14/20 09:35 Nph, Human Insulin Isophane 300 Unit/3 Ml Vial SC 30 unit BID INGRID Administration Lorazepam 2 mg 09/07/20 16:00 09/11/20 17:48 Lorazepam 2 Mg/Ml Vial SLOW IVP 10/07/20 16:00 2 mg Q1H PRN Administration Breakthrough agitation Pantoprazole Sodium 40 mg 09/11/20 09:00 09/14/20 09:34 Pantoprazole 40 Mg Granules Packet PO 40 mg DAILY INGRID Administration Propofol 1,000 mg 09/07/20 16:00 09/13/20 23:43 Propofol 1,000 Mg/100 Ml Vial IV 10/07/20 16:00 1,000 mg INF PRN Administration TO ACHIEVE GOAL RASS Protocol Sodium Chloride 10 ml 09/04/20 20:06 09/11/20 07:55 Flush - Normal Saline 10 Ml Syringe IVF 10 ml PRN PRN Administration Saline Flush Vecuronium [place] 10 mg 09/07/20 15:54 09/07/20 16:06 Vecuronium 10 Mg Vial IV 10 mg Q1H PRN Administration MOVEMENT Zinc Sulfate 220 mg 08/30/20 09:00 09/14/20 09:34 Zinc Sulfate 220 Mg Cap PO 220 mg DAILY INGRID Administration Hospitalist Exam Vitals: Vital Signs (12 hours) Temp Pulse Resp BP 09/14/20 11:00 98.9 F 09/14/20 10:54 117 H 09/14/20 10:00 20 09/14/20 08:00 20 09/14/20 07:47 112 H 160/84 H 09/14/20 07:00 98.6 F 09/14/20 06:00 20 09/14/20 04:00 97.6 F 09/14/20 02:06 107 H 09/14/20 02:00 20 Weight Admit Weight 194 lb 12.8 oz Weight 203 lb 14.4 oz Most Recent Monitor Data Heart Rate from ECG 120 NIBP 138/73 NIBP BP-Mean 94 Respiration from ECG 27 SpO2 87 General Appearance: NAD, ill appearing General - other findings: On ventilator ENT: normocephalic atraumatic Neck: supple, symmetric, no JVD Heart: RRR, no murmur, no gallops Respiratory: no wheezes, no rales, no ronchi Gastrointestinal: soft, non-distended, normal bowel sounds Extremities: 1+ LE edema Hosp A/P (1) Acute respiratory failure due to COVID-19 Code(s): U07.1 - COVID-19; J96.00 - ACUTE RESPIRATORY FAILURE, UNSP W HYPOXIA OR HYPERCAPNIA Status: Acute (2) Pneumonia due to 2019 novel coronavirus Code(s): U07.1 - COVID-19; J12.82 - PNEUMONIA DUE TO CORONAVIRUS DISEASE 2019 Status: Acute (3) Acute CVA (cerebrovascular accident) Code(s): I63.9 - CEREBRAL INFARCTION, UNSPECIFIED Status: Acute (4) Acute kidney failure Status: Acute (5) Hyperkalemia Code(s): E87.5 - HYPERKALEMIA Status: Acute (6) Thrombocytopenia Code(s): D69.6 - THROMBOCYTOPENIA, UNSPECIFIED Status: Acute (7) Diabetes type 2, controlled Code(s): E11.9 - TYPE 2 DIABETES MELLITUS WITHOUT COMPLICATIONS Status: Acute Qualifiers: Diabetes mellitus long term acute care registered nurse insulin use: with penitentiary use Diabetes mellitus complication status: with kidney complications Chronic kidney disease stage: on chronic dialysis (8) Hypertension Code(s): I10 - ESSENTIAL (PRIMARY) HYPERTENSION Status: Chronic Qualifiers: Hypertension type: essential hypertension Qualified Code(s): I10 - Essential (primary) hypertension - Plan old records reviewed/req Consults: Palliative Care Patient is on [facility] to decide about dialysis Continue Eliquis Continue vitamin supplementation Continue dexamethasone Patient's long-term prognosis is very poor, Palliative care following Ventilator management as per pulmonology
[2020-09-14] MEDS: Lorazepam 2 MG/ML VIAL SLOW IVP PRN (12:32)
[2020-09-14] MEDS: Vecuronium 10 MG VIAL IV PRN ×4 (12:32→23:50)
[2020-09-14 13:01] LABS: Actual Bicarbonate (HCO3a) 21.4 mEq/L (22-28); Base Excess (BEa) -13.2 mEq/L (-2.0 to +3.0); CO2 Tension 101.5 mmHg (35.0-45.0); Calcium, Ionized (arterial) 1.14 mmol/L (1.12-1.30); Carboxyhemoglobin (COHb) 0.9 gm% (0.0-3.0); Hemoglobin (Hb) 14.6 g/dL (14.0-18.0); O2 Tension (PaO2), arterial 85.8 mmHg (> 80.0); Puncture Site LRA; pH, Arterial 6.94 (7.35-7.45)
[2020-09-14 13:06] LABS: ALV-art Gradient 500.325 mmHg (0-20)
--- NOTE | 2020-09-14 13:34 | RAD ---
PORTABLE CHEST: Indications: Code/resuscitation. Comparison: Film earlier today. FINDINGS: ET tube, NG tube unchanged. Lungs again show bilateral hazy infiltrates. No significant interval dumont ge noted. IMPRESSION: As above. POS: AGW
[2020-09-14 14:31] LABS: Actual Bicarbonate (HCO3a) 25.6 mEq/L (22-28); Base Excess (BEa) -3.7 mEq/L (-2.0 to +3.0); Calcium, Ionized (arterial) 0.99 mmol/L (1.12-1.30); Hemoglobin (Hb) 12.5 g/dL (14.0-18.0); O2 Tension (PaO2), arterial 99.2 mmHg (> 80.0)
[2020-09-14] MEDS ORDERED: Sodium Bicarb 50 MEQ/50 ML Abboject 8.4% SYRINGE ONE (14:59)
[2020-09-14] MEDS ORDERED: Sodium Bicarb 50 MEQ/50 ML Abboject 8.4% SYRINGE IVP SCH (15:00)
[2020-09-14] MEDS: Sodium Chloride 0.9% 1,000 ML IV SCH (17:20)
[2020-09-14] MEDS: Propofol 1,000 MG/100 ML VIAL IV PRN ×2 (17:54→23:50)
[2020-09-14] MEDS: Cholecalciferol 1,000 UNITS (25 MCG) TAB PO SCH (20:20)
[2020-09-14] MEDS: Dexamethasone 4 mg/ml Vial SLOW IVP SCH (20:20)
[2020-09-14] MEDS: Atorvastatin Calcium 40 MG TAB PO SCH (20:20)
[2020-09-14] MEDS ORDERED: Sterile Water 10 ML ONE (20:27)
[2020-09-15] MEDS: HumaLOG 300 UNITS/3 ML VIAL SC PRN ×2 (05:09→16:08)
--- NOTE | 2020-09-15 06:43 | PRG ---
DATE OF SERVICE: 09/14/2020 CODE BLUE NOTE: While the patient was on dialysis around 1230 hours, he experienced a cardiac arrest. He was placed on bag ET tube ventilation and given chest compressions. He received a total of 2 amps of epinephrine before regaining pulse. An ABG done after he had return of spontaneous circulation demonstrated a pH of 6.9, pCO2 of 101, and pO2 of 85. This patient is on maximum ventilatory support. It is clear that he is not ventilating despite aggressive measures. This portends to a very poor prognosis and I would anticipate him coding again soon. He has been given bicarbonate for his acidosis. His ABG will be rechecked in about an hour, but I suspect that he will probably code over and over again today. Job ID: [id number]
[2020-09-15 07:17] LABS: Actual Bicarbonate (HCO3a) 27.2 mEq/L (22-28); Base Excess (BEa) -0.5 mEq/L (-2.0 to +3.0); Carboxyhemoglobin (COHb) 0.5 gm% (0.0-3.0); Hemoglobin (Hb) 11.2 g/dL (14.0-18.0); O2 Tension (PaO2), arterial 90.1 mmHg (> 80.0); Potassium - ABG Lab 4.83 mmol/L (3.70-5.30); pH, Arterial 7.27 (7.35-7.45)
[2020-09-15 07:25] LABS: ALV-art Gradient 297.725 mmHg (0-20); CO2 Tension 60.5 mmHg (35.0-45.0); Puncture Site RRA
[2020-09-15] MEDS: Vecuronium 10 MG VIAL IV PRN ×3 (08:00→21:48)
[2020-09-15] MEDS: Piperacillin/Tazobactam 2.25 GM in Sodium Chloride 0.9% 100 ML IVPB SCH ×2 (08:00→20:31)
[2020-09-15] MEDS: Ascorbic Acid 500 mg Chewable Tablet PO SCH (09:27)
[2020-09-15] MEDS: Apixaban 2.5 MG TAB PER TUBE SCH ×2 (09:27→20:37)
[2020-09-15] MEDS: Pantoprazole 40 MG GRANULES PACKET PO SCH (09:28)
[2020-09-15] MEDS: Aspirin Chewable 81 MG TAB PO SCH (09:28)
[2020-09-15] MEDS: Zinc Sulfate 220 MG CAP PO SCH (09:28)
[2020-09-15] MEDS: NPH, Human Insulin Isophane 300 UNIT/3 ML VIAL SC SCH ×2 (09:28→20:38)
--- NOTE | 2020-09-15 10:17 | PDOC.HOSPP ---
- Subjective Encounter Date: 09/15/20 Encounter Time: 10:00 Subjective: Patient seen and examined bedside today, patient is ventilator, no overnight event happened Yesterday patient had a CODE BLUE and he was successfully resuscitated, - Objective Vital Signs & Weight: Vital Signs (12 hours) Temp Pulse Resp BP 09/15/20 08:00 98.2 F 30 H 09/15/20 07:11 97 09/15/20 06:00 30 H 09/15/20 04:00 98.3 F 30 H 09/15/20 02:41 99 90/59 L 09/15/20 02:00 30 H 09/15/20 00:00 98.1 F 30 H 09/14/20 22:44 111 H 120/67 Weight Admit Weight 194 lb 12.8 oz Weight 198 lb 6.656 oz Most Recent Monitor Data Heart Rate from ECG 101 NIBP 136/74 NIBP BP-Mean 94 Respiration from ECG 0 SpO2 93 I&O: 09/14/20 09/15/20 09/16/20 06:59 06:59 06:59 Intake Total 1245.8 1680.4 Output Total 0 7 0 Balance 1245.8 1673.4 0 Result Diagrams: 09/14/20 03:50 09/14/20 03:50 Additional Labs: Accuchecks 09/15/20 09/15/20 09/14/20 09:46 04:15 22:13 POC Glucose 198 H 237 H 251 H 09/14/20 09/14/20 16:37 11:56 POC Glucose 163 H 146 H Radiology Reviewed by me: Yes (Chest x-ray reviewed) EKG Reviewed by me: Yes Hospitalist ROS - Review of Systems ROS unobtainable: due to endotracheal tube - Medication Medications: Active Medications Generic Name Dose Route Start Last Admin Trade Name Freq PRN Reason Stop Dose Admin Acetaminophen 650 mg 08/28/20 21:56 09/03/20 04:27 Acetaminophen 325 Mg Tab PO 650 mg Q4H PRN Administration Headache/Fever/Mild Pain (1-3) Albuterol Sulfate 1 puff 08/28/20 22:48 08/29/20 22:56 Albuterol 200 Puff (6.7gm Inhaler) INH 1 puff Q4H PRN Administration SOB &/or Wheezing Apixaban 2.5 mg 09/11/20 09:00 09/15/20 09:27 Apixaban 2.5 Mg Tab PER TUBE 2.5 mg BID INGRID Administration Ascorbic Acid 1,000 mg 08/30/20 09:00 09/15/20 09:27 Ascorbic Acid 500 Mg Chewable Tablet PO 1,000 mg DAILY INGRID Administration Aspirin 81 mg 09/11/20 09:00 09/15/20 09:28 Aspirin Chewable 81 Mg Tab PO 81 mg DAILY INGRID Administration Atorvastatin Calcium 40 mg 09/04/20 21:00 09/14/20 20:20 Atorvastatin Calcium 40 Mg Tab PO 40 mg HS INGRID Administration Cholecalciferol 5,000 units 09/05/20 21:00 09/14/20 20:20 Cholecalciferol 1,000 Units (25 Mcg) Tab PO 5,000 units HS INGRID Administration Dexamethasone 6 mg 08/29/20 21:00 09/14/20 20:20 Dexamethasone 4 Mg/Ml Vial SLOW IVP 6 mg Q24H INGRID Administration Dextrose/Water 25 gm 08/28/20 22:33 09/09/20 21:28 Dextrose 50% Abboject 50 Ml Syringe SLOW IVP 25 gm PRN PRN Administration Hypoglycemia Guaifenesin/Dextromethorphan 15 ml 08/28/20 21:56 09/07/20 00:02 Guaifenesin Dm 100-10/5 Ml Udcup PO 15 ml Q4H PRN Administration Cough Sodium Chloride 1,000 mls @ 30 mls/hr 09/06/20 17:15 09/14/20 17:20 Normal Saline 0.9% IV Not Given .Q24H INGRID Fentanyl 100 mls @ 0 mls/hr 09/07/20 16:00 09/13/20 08:39 Fentanyl Cadd IV 10/07/20 16:00 100 mls INF INGRID Administration Protocol Per Protocol Norepinephrine Bitartrate 250 mls @ 0 mls/hr 09/08/20 10:15 09/09/20 01:26 Levophed IVPB 250 mls INF INGRID Administration Piperacillin Sod/Tazobactam 100 mls @ 200 mls/hr 09/10/20 20:00 09/15/20 08:00 Sod 2.25 gm/ Sodium Chloride IVPB 100 mls 0800,2000 INGRID Administration Insulin Human Lispro 0 units 08/28/20 22:33 09/15/20 05:09 Humalog 300 Units/3 Ml Vial SC 3 unit .MILD SLIDING SCALE PRN Administration Mild Correctional Scale Insulin Human Lispro 0 units 08/30/20 01:38 09/14/20 22:21 Humalog 300 Units/3 Ml Vial SC 3 unit .BEDTIME SLIDING SC PRN Administration Bedtime Correctional Scale Insulin Human NPH 30 unit 09/12/20 08:30 09/15/20 09:28 Nph, Human Insulin Isophane 300 Unit/3 Ml Vial SC 30 unit BID INGRID Administration Lorazepam 2 mg 09/07/20 16:00 09/14/20 12:32 Lorazepam 2 Mg/Ml Vial SLOW IVP 10/07/20 16:00 2 mg Q1H PRN Administration Breakthrough agitation Pantoprazole Sodium 40 mg 09/11/20 09:00 09/15/20 09:28 Pantoprazole 40 Mg Granules Packet PO 40 mg DAILY INGRID Administration Propofol 1,000 mg 09/07/20 16:00 09/14/20 23:50 Propofol 1,000 Mg/100 Ml Vial IV 10/07/20 16:00 1,000 mg INF PRN Administration TO ACHIEVE GOAL RASS Protocol Sodium Chloride 10 ml 09/04/20 20:06 09/11/20 07:55 Flush - Normal Saline 10 Ml Syringe IVF 10 ml PRN PRN Administration Saline Flush Vecuronium [place] 10 mg 09/07/20 15:54 09/15/20 08:00 Vecuronium 10 Mg Vial IV 10 mg Q1H PRN Administration MOVEMENT Zinc Sulfate 220 mg 08/30/20 09:00 09/15/20 09:28 Zinc Sulfate 220 Mg Cap PO 220 mg DAILY INGRID Administration Hospitalist Exam Vitals: Vital Signs (12 hours) Temp Pulse Resp BP 09/15/20 08:00 98.2 F 30 H 09/15/20 07:11 97 09/15/20 06:00 30 H 09/15/20 04:00 98.3 F 30 H 09/15/20 02:41 99 90/59 L 09/15/20 02:00 30 H 09/15/20 00:00 98.1 F 30 H 09/14/20 22:44 111 H 120/67 Weight Admit Weight 194 lb 12.8 oz Weight 198 lb 6.656 oz Most Recent Monitor Data Heart Rate from ECG 101 NIBP 136/74 NIBP BP-Mean 94 Respiration from ECG 0 SpO2 93 General Appearance: NAD, ill appearing Eye: PERRL ENT: normocephalic atraumatic Neck: supple, symmetric, no JVD Heart: RRR, no murmur, no gallops, no rubs Respiratory: no wheezes, no rales, no ronchi Gastrointestinal: soft, non-distended, normal bowel sounds Extremities: 1+ LE edema Skin: normal turgor Hosp A/P (1) Acute respiratory failure due to COVID-19 Code(s): U07.1 - COVID-19; J96.00 - ACUTE RESPIRATORY FAILURE, UNSP W HYPOXIA OR HYPERCAPNIA Status: Acute (2) Pneumonia due to 2019 novel coronavirus Code(s): U07.1 - COVID-19; J12.82 - PNEUMONIA DUE TO CORONAVIRUS DISEASE 2019 Status: Acute (3) Acute CVA (cerebrovascular accident) Code(s): I63.9 - CEREBRAL INFARCTION, UNSPECIFIED Status: Acute (4) Acute kidney failure Status: Acute Plan: Patient has approached ESRD and now on dialysis (5) Hyperkalemia Code(s): E87.5 - HYPERKALEMIA Status: Acute (6) Thrombocytopenia Code(s): D69.6 - THROMBOCYTOPENIA, UNSPECIFIED Status: Acute (7) Diabetes type 2, controlled Code(s): E11.9 - TYPE 2 DIABETES MELLITUS WITHOUT COMPLICATIONS Status: Acute Qualifiers: Diabetes mellitus care home insulin use: with termination clerk use Diabetes mellitus complication status: with kidney complications Chronic kidney disease stage: on chronic dialysis (8) Hypertension Code(s): I10 - ESSENTIAL (PRIMARY) HYPERTENSION Status: Chronic Qualifiers: Hypertension type: essential hypertension Qualified Code(s): I10 - Essential (primary) hypertension - Plan old records reviewed/req Continue Zosyn for now Continue Eliquis Continue ventilator support as per pulmonology Prognosis poor
[2020-09-15] MEDS ORDERED: Sterile Water 10 ML ONE (10:43)
[2020-09-15] MEDS ORDERED: Fentanyl CADD 100 ML ONE (10:44)
[2020-09-15] MEDS: Propofol 1,000 MG/100 ML VIAL IV PRN ×2 (10:46→19:49)
[2020-09-15] MEDS ORDERED: Heparin 10,000 UNITS/ 10 ML VIAL ONE (12:01)
[2020-09-15] MEDS ORDERED: EPINEPHrine 1 MG/10 ML Abboject SYRINGE ONE (12:09)
[2020-09-15] MEDS ORDERED: Sodium Bicarb 50 MEQ/50 ML Abboject 8.4% SYRINGE ONE (12:09)
--- NOTE | 2020-09-15 13:02 | PRG ---
DATE OF SERVICE: 09/15/2020 35 minutes of critical care time. SUBJECTIVE: The patient remains intubated on mechanical ventilation. He is largely unresponsive to me to deep sternal rub, but when the sedation is decreased, he becomes extremely tachypneic. PHYSICAL EXAMINATION: VITAL SIGNS: His pulse is 100, blood pressure 119/68, O2 saturation 93%, respiratory rate 22. GENERAL: He is not on any vasopressors at this time. His current ventilator settings, he has a rate of 30, high pressure of 35, low pressure of 12, FiO2 60%. HEENT: Unchanged. NECK: No JVD. LUNGS: Poor air movement. CARDIOVASCULAR: S1 and S2. Regular. ABDOMEN: Soft. EXTREMITIES: Edematous. LABORATORY DATA: ABG; pH 7.27, pCO2 of 60, PO2 of 90, on the above ventilator settings. His x-ray shows terrible bilateral infiltrates. ASSESSMENT: 1. COVID-19 pneumonia. 2. Acute renal failure. 3. Acute respiratory failure, requiring mechanical ventilation. 4. Status post cardiac arrest during dialysis yesterday. PLAN: He has had a respiratory acidosis. This is mainly because he has poor compliance and poor tidal volumes despite extremely elevated ventilatory pressures. I do not think the patient will survive this illness. I have conveyed this to the family. In the meantime, we will continue supportive care. Job ID: [id number]
--- NOTE | 2020-09-15 14:55 | PDOC.BPN ---
- Brief Progress Note Encounter Date: 09/15/20 Encounter Time: 14:52 Subjective: Patient is seen and examined in ICU. He continues to be intubated on mechanical ventilator. Patient's family was present at the time of examination. Review of systems Gen.: No fever, no chills All the 14 systems reviewed except for the ones mentioned above are negative Physical examination Vital Signs Temp 98.2 F 09/15/20 08:00 Pulse 107 H 09/15/20 11:04 Resp 40 H 09/15/20 10:00 BP 90/59 L 09/15/20 02:41 Pulse Ox 94 L 09/15/20 08:00 Intake & Output 09/14/20 09/15/20 09/15/20 18:59 06:59 18:59 Intake Total 756.4 924 Output Total 0 7 0 Balance 756.4 917 0 Weight 198 lb 6.656 oz Intake: Intake, IV Amount 396.4 535 Fentanyl CADD 100 ml @ 20 Per Protocol IV INF INGRID Rx#:[id number] Propofol 1000 mg (See 65.4 122 Protocol) IV INF PRN Rx#: [id number] Sodium Chloride 0.9% 1, 311 413 000 ml @ 30 mls/hr IV . Q24H INGRID Rx#:[id number] Tube Feeding 220 299 Tube Irrigant 140 90 Output: Output, Lemus 0 7 0 Other: Voiding Method Indwelling Catheter Indwelling Catheter Indwelling Catheter # Bowel Movements 1 Constitutional: Intubated on mechanical ventilator HEENT: ET tube and OG tube noted Neck: Trachea midline, no lymphadenopathy Heart: Regular rate and rhythm; no murmurs Lungs: Transmitted breath sounds, no wheezing Abdomen: Soft; non=tender; no guarding/tenderness/rebound Extremities: No calf tenderness; no ulcers, no bruises Neurological: Patient is sedated+ Skin: No rash, no ulcers Psychological: Not agitated Labs and Imaging reviewed Laboratory Results - last 24 hr 09/14/20 09/14/20 09/15/20 16:37 22:13 04:15 Specimen Type Puncture Site Bicarbonate Actual ABG pH ABG pCO2 ABG pO2 ABG O2 Sat (Measured) ABG O2 Content ABG Base Excess ABG Hematocrit ABG Hemoglobin ABG Oxyhemoglobin ABG Carboxyhemoglobin ABG Methemoglobin ABG Deoxyhemoglobin Uriel Test A-a O2 Gradient Sodium Potassium Chloride Ionized Calcium Mode of Support % Minute Volume Mechanical Rate Inspired O2 Inspiratory Time Spontaneous Tidal Vol Peak Inspir Pressure Pressure Support POC Glucose 163 H 251 H 237 H 09/15/20 09/15/20 07:15 09:46 Specimen Type ARTERIAL Puncture Site RRA Bicarbonate Actual 27.2 ABG pH 7.27 L ABG pCO2 60.5 H* ABG pO2 90.1 H ABG O2 Sat (Measured) 96.1 ABG O2 Content 15.1 L ABG Base Excess -0.5 ABG Hematocrit 33.0 L ABG Hemoglobin 11.2 L ABG Oxyhemoglobin 95.3 ABG Carboxyhemoglobin 0.5 ABG Methemoglobin 0.30 ABG Deoxyhemoglobin 3.9 H Uriel Test Not Reportable A-a O2 Gradient 297.725 H Sodium 133 L Potassium 4.83 Chloride 97 L Ionized Calcium 1.00 L Mode of Support BL 35/12 % Minute Volume 8.1 Mechanical Rate 30 Inspired O2 65 Inspiratory Time 0.90 Spontaneous Tidal Vol 271 Peak Inspir Pressure 38 Pressure Support 12 POC Glucose 198 H Active Medications Generic Name Dose Route Start Last Admin Trade Name Freq PRN Reason Stop Dose Admin Acetaminophen 650 mg 08/28/20 21:56 09/03/20 04:27 Acetaminophen 325 Mg Tab PO 650 mg Q4H PRN Administration Headache/Fever/Mild Pain (1-3) Albuterol Sulfate 1 puff 08/28/20 22:48 08/29/20 22:56 Albuterol 200 Puff (6.7gm Inhaler) INH 1 puff Q4H PRN Administration SOB &/or Wheezing Apixaban 2.5 mg 09/11/20 09:00 09/15/20 09:27 Apixaban 2.5 Mg Tab PER TUBE 2.5 mg BID INGRID Administration Ascorbic Acid 1,000 mg 08/30/20 09:00 09/15/20 09:27 Ascorbic Acid 500 Mg Chewable Tablet PO 1,000 mg DAILY INGRID Administration Aspirin 81 mg 09/11/20 09:00 09/15/20 09:28 Aspirin Chewable 81 Mg Tab PO 81 mg DAILY INGRID Administration Atorvastatin Calcium 40 mg 09/04/20 21:00 09/14/20 20:20 Atorvastatin Calcium 40 Mg Tab PO 40 mg HS INGRID Administration Calcium Carbonate 1,000 mg 09/02/20 13:05 Calcium Carbonate 500 Mg Chewtab PO DAILYPRN PRN Heartburn or Indigestion Cholecalciferol 5,000 units 09/05/20 21:00 09/14/20 20:20 Cholecalciferol 1,000 Units (25 Mcg) Tab PO 5,000 units HS INGRID Administration Clonidine 0.1 mg 08/28/20 21:56 Clonidine 0.1 Mg Tab PO BID PRN SBP > 160 use second Dexamethasone 6 mg 08/29/20 21:00 09/14/20 20:20 Dexamethasone 4 Mg/Ml Vial SLOW IVP 6 mg Q24H INGRID Administration Dextrose/Water 25 gm 08/28/20 22:33 09/09/20 21:28 Dextrose 50% Abboject 50 Ml Syringe SLOW IVP 25 gm PRN PRN Administration Hypoglycemia Glucagon 1 mg 08/28/20 22:33 Glucagon 1 Mg/Ml Vial IM PRN PRN Hypoglycemia Guaifenesin/Dextromethorphan 15 ml 08/28/20 21:56 09/07/20 00:02 Guaifenesin Dm 100-10/5 Ml Udcup PO 15 ml Q4H PRN Administration Cough Hydralazine HCl 10 mg 08/28/20 21:56 Hydralazine 20 Mg/Ml Vial SLOW IVP Q6H PRN SBP GREATER THAN 160 Promethazine HCl 12.5 mg/ 50.5 mls @ 202 mls/hr 08/28/20 21:56 Sodium Chloride IVPB Q6H PRN Nausea/vomiting use second Dextrose/Water 1,000 mls @ 0 mls/hr 08/28/20 22:33 D5w IV .Q0M PRN Hypoglycemia As Directed Sodium Chloride 1,000 mls @ 30 mls/hr 09/06/20 17:15 09/14/20 17:20 Normal Saline 0.9% IV Not Given .Q24H INGRID Fentanyl 100 mls @ 0 mls/hr 09/07/20 16:00 09/13/20 08:39 Fentanyl Cadd IV 10/07/20 16:00 100 mls INF INGRID Administration Protocol Per Protocol Fentanyl Citrate 250 mls @ 0 mls/hr 09/07/20 16:00 Fentanyl Bolus IVPB 10/07/20 16:00 PRN PRN Breakthrough pain/agitation As Directed Norepinephrine Bitartrate 250 mls @ 0 mls/hr 09/08/20 10:15 09/09/20 01:26 Levophed IVPB 250 mls INF INGRID Administration Piperacillin Sod/Tazobactam 100 mls @ 200 mls/hr 09/10/20 20:00 09/15/20 08:00 Sod 2.25 gm/ Sodium Chloride IVPB 100 mls 08,1999 INGRID Administration Insulin Human Lispro 0 units 08/28/20 22:33 09/15/20 05:09 Humalog 300 Units/3 Ml Vial SC 3 unit .MILD SLIDING SCALE PRN Administration Mild Correctional Scale Insulin Human Lispro 0 units 08/30/20 01:38 09/14/20 22:21 Humalog 300 Units/3 Ml Vial SC 3 unit .BEDTIME SLIDING SC PRN Administration Bedtime Correctional Scale Insulin Human NPH 30 unit 09/12/20 08:30 09/15/20 09:28 Nph, Human Insulin Isophane 300 Unit/3 Ml Vial SC 30 unit BID INGRID Administration Labetalol HCl 20 mg 08/28/20 21:56 Labetalol Hcl 100 Mg/20 Ml Vial SLOW IVP Q4H PRN SBP > 160 use first Lorazepam 2 mg 09/07/20 16:00 09/14/20 12:32 Lorazepam 2 Mg/Ml Vial SLOW IVP 10/07/20 16:00 2 mg Q1H PRN Administration Breakthrough agitation Miscellaneous Medication 1 each 09/10/20 11:49 Zosyn IVPB PRN PRN Pharmacy to dose Morphine Sulfate 2 mg 09/07/20 16:00 Morphine 2 Mg/Ml Vial SLOW IVP 10/07/20 16:00 Q1H PRN Breakthrough Pain/Agitation Discontinue Previous 1 each 09/07/20 16:00 Narcotic Pain FS 10/07/20 16:00 Medications And .[facility] Benzodiazepines Ondansetron HCl 4 mg 08/28/20 21:56 Ondansetron Pf 4 Mg/2 Ml Vial IVP Q6H PRN Nausea/Vomiting use 1st Pantoprazole Sodium 40 mg 09/11/20 09:00 09/15/20 09:28 Pantoprazole 40 Mg Granules Packet PO 40 mg DAILY INGRID Administration Propofol 1,000 mg 09/07/20 16:00 09/15/20 10:46 Propofol 1,000 Mg/100 Ml Vial IV 10/07/20 16:00 1,000 mg INF PRN Administration TO ACHIEVE GOAL RASS Protocol Propofol 20 mg 09/07/20 16:00 Propofol Bolus 1,000 Mg/100 Ml Vial IV 10/07/20 16:00 Q5MIN PRN BREAKTHROUGH AGITATION Simethicone 80 mg 09/02/20 13:05 Simethicone Chewable 80 Mg Tab PO PCHS PRN Gas Pain Sodium Chloride 10 ml 09/04/20 20:06 09/11/20 07:55 Flush - Normal Saline 10 Ml Syringe IVF 10 ml PRN PRN Administration Saline Flush Vecuronium [place] 10 mg 09/07/20 15:54 09/15/20 10:46 Vecuronium 10 Mg Vial IV 10 mg Q1H PRN Administration MOVEMENT Zinc Sulfate 220 mg 08/30/20 09:00 09/15/20 09:28 Zinc Sulfate 220 Mg Cap PO 220 mg DAILY INGRID Administration Assessment and plan CKD stage Hyperkalemia Uremia Pneumonia due to COVID-19 Patient continues to be anuric,with hyperkalemia and acidosis. He also has positive fluid balance. Will attempt hemodialysis today, patient started on Levophed for pressor support. UF as tolerated with 2k bath. Discussed with patient's family re: treatment plan and management goals, renal replacement therapy. Answered their questions to their satisfaction. They Verbalized understanding. Pt has poor prognosis. D/w RN and dialysis nurse.
[2020-09-15 16:02] LABS: Albumin 2.4 g/dL (3.4-4.8); Anion Gap 18 mmol/L (10-20); BUN (Urea Nitrogen) 94 mg/dL (8.4-25.7); BUN/Creatinine Ratio 11.42; Calc. Creatinine Clearance 12 mL/min (70-130); Calcium 7.7 mg/dL (7.8-10.44); Carbon Dioxide 27 mmol/L (23-31); Chloride 96 mmol/L (98-107); Glucose 241 mg/dL (80-115); Potassium 5.2 mmol/L (3.5-5.1); Sodium 136 mmol/L (136-145)
--- NOTE | 2020-09-15 16:06 | RAD ---
EXAM: Single view of the chest HISTORY: Pneumonia COMPARISON: 09/14/2020 FINDINGS: Single view of the chest shows a normal sized cardiomediastinal silhouette. The endotrache al tube and NG tube are unchanged in position. Stable multifocal infiltrates are seen in the lungs. No acute osseous abnormality. IMPRESSION: Stable exam
[2020-09-15 16:11] LABS: Phosphorus 10.5 mg/dL (2.3-4.7)
[2020-09-15] MEDS ORDERED: Norepinephrine 8 MG/0.9% NS 250 ML ONE (17:09)
[2020-09-15] MEDS: Sodium Chloride 0.9% 1,000 ML IV SCH (18:35)
[2020-09-15] MEDS: Norepinephrine 8 MG/0.9% NS 250 ML IVPB SCH (18:35)
[2020-09-15] MEDS: Atorvastatin Calcium 40 MG TAB PO SCH (20:37)
[2020-09-15] MEDS: Cholecalciferol 1,000 UNITS (25 MCG) TAB PO SCH (20:37)
[2020-09-15] MEDS: Dexamethasone 4 mg/ml Vial SLOW IVP SCH (20:38)
[2020-09-16 05:33] LABS: Anion Gap 16 mmol/L (10-20); BUN (Urea Nitrogen) 63 mg/dL (8.4-25.7); Calc. Creatinine Clearance 15 mL/min (70-130); Calcium 7.3 mg/dL (7.8-10.44); Carbon Dioxide 29 mmol/L (23-31); Chloride 98 mmol/L (98-107); Glucose 195 mg/dL (80-115); Sodium 138 mmol/L (136-145)
[2020-09-16 05:51] VITALS: BMI 29.9
[2020-09-16] MEDS: Fentanyl CADD 100 ML IV SCH (06:55)
[2020-09-16 07:46] LABS: Actual Bicarbonate (HCO3a) 28.5 mEq/L (22-28); Calcium, Ionized (arterial) 1.01 mmol/L (1.12-1.30); Carboxyhemoglobin (COHb) 0.4 gm% (0.0-3.0); Hemoglobin (Hb) 10.4 g/dL (14.0-18.0); O2 Tension (PaO2), arterial 87.1 mmHg (> 80.0); Potassium - ABG Lab 4.68 mmol/L (3.70-5.30); pH, Arterial 7.29 (7.35-7.45)
[2020-09-16] MEDS: Vecuronium 10 MG VIAL IV PRN ×5 (07:46→21:22)
[2020-09-16 07:54] LABS: ALV-art Gradient 264.325 mmHg (0-20); CO2 Tension 61.1 mmHg (35.0-45.0); Puncture Site RRA
[2020-09-16 07:59] LABS: #Eosinphils 0.1 thou/uL (0.0-0.7); #Lymphocytes 0.8 thou/uL (1.20-3.40); #Monocytes 0.7 thou/uL (0.11-0.59); %Lymphocytes 5.9 % (21.0-51.0); %Monocytes 5.2 % (0.0-10.0); %Neutrophils 87.9 % (42.0-75.0); Hemoglobin 10.4 g/dL (14.0-18.0); Mean Corpuscular HGB CONC 32.7 g/dL (32.0-36.0); Mean Corpuscular Hemoglobin 30.9 pg (27.0-31.0); Mean Corpuscular Volume 94.5 fL (78.0-98.0); Mean Platelet Volume 10.5 fL (7.4-10.4); Platelet Count 87 thou/uL (130-400); RBC Distribution Width 13.8 % (11.5-14.5); Red Blood Cell (RBC) Count 3.36 mill/uL (4.70-6.10); White Blood Cell (WBC) Count 13.7 thou/uL (4.8-10.8)
[2020-09-16] MEDS: Piperacillin/Tazobactam 2.25 GM in Sodium Chloride 0.9% 100 ML IVPB SCH ×2 (09:05→21:22)
--- NOTE | 2020-09-16 09:49 | PRG ---
DATE OF SERVICE: 09/16/2020 SUBJECTIVE: The patient remains intubated on mechanical ventilation. He will get agitated when sedation is let up in terms of tachypnea, but he does not wake up to the point where he can follow commands. OBJECTIVE: VITAL SIGNS: His temperature 98.8, pulse 110, blood pressure 151/82. HEENT: Unremarkable. NECK: No adenopathy or JVD. LUNGS: Poor air movement, requiring a rate of 30 on ventilator, high pressure 35, low pressure 12, and FiO2 of 60%, achieved tidal volumes around 200. CARDIAC: S1, S2. Regular. ABDOMEN: Soft. EXTREMITIES: No edema. LABORATORY DATA: White blood cell count 13.7, hematocrit 31.7, and platelet count 87. PH 7.29, pCO2 of 61, PO2 of 87. Sodium , potassium 5, chloride 98, CO2 of 29, BUN 63, creatinine 6.3, glucose 195. ASSESSMENT: 1. Acute hypoxic respiratory failure secondary to COVID-19 pneumonia. 2. Status post cardiac arrest on Thursday with successful resuscitation, but probable profound anoxic encephalopathy. 3. Not improving chest x-ray. 4. Renal failure, requiring hemodialysis. PLAN: I do not think the situation is fixable. I have spoken with the son on 3 occasions encouraging DNR status and withdrawal of care. The family is contemplating this. I do not see any way that he can be weaned from the ventilator. Question whether or not his body can tolerate dialysis. Otherwise, we will continue current treatment. Job ID: [id number]
[2020-09-16] MEDS: Apixaban 2.5 MG TAB PER TUBE SCH ×2 (10:06→21:25)
[2020-09-16] MEDS: Ascorbic Acid 500 mg Chewable Tablet PO SCH (10:06)
[2020-09-16] MEDS: Aspirin Chewable 81 MG TAB PO SCH (10:06)
[2020-09-16] MEDS: Pantoprazole 40 MG GRANULES PACKET PO SCH (10:06)
[2020-09-16] MEDS: Zinc Sulfate 220 MG CAP PO SCH (10:06)
[2020-09-16] MEDS: NPH, Human Insulin Isophane 300 UNIT/3 ML VIAL SC SCH ×2 (10:29→21:26)
--- NOTE | 2020-09-16 10:30 | PDOC.HOSPP ---
- Subjective Encounter Date: 09/16/20 Encounter Time: 10:00 Subjective: Patient seen and examined bedside today, patient is intubated - Objective Vital Signs & Weight: Vital Signs (12 hours) Temp Pulse Resp 09/16/20 08:00 98.8 F 30 H 09/16/20 07:55 109 H 09/16/20 06:00 30 H 09/16/20 04:00 98.5 F 30 H 09/16/20 02:54 98 09/16/20 02:00 30 H 09/16/20 00:00 98.7 F 30 H Weight Admit Weight 194 lb 12.8 oz Weight 197 lb 4.8 oz Most Recent Monitor Data Heart Rate from ECG 107 NIBP 128/75 NIBP BP-Mean 92 Respiration from ECG 31 SpO2 91 I&O: 09/15/20 09/16/20 09/17/20 06:59 06:59 06:59 Intake Total 1680.4 1028.3 Output Total 7 0 0 Balance 1673.4 1028.3 0 Result Diagrams: 09/16/20 07:50 09/16/20 04:05 Additional Labs: Accuchecks 09/15/20 09/15/20 21:44 16:04 POC Glucose 151 H 230 H Radiology Reviewed by me: Yes EKG Reviewed by me: Yes Hospitalist ROS - Review of Systems ROS unobtainable: due to endotracheal tube - Medication Medications: Active Medications Generic Name Dose Route Start Last Admin Trade Name Freq PRN Reason Stop Dose Admin Acetaminophen 650 mg 08/28/20 21:56 09/03/20 04:27 Acetaminophen 325 Mg Tab PO 650 mg Q4H PRN Administration Headache/Fever/Mild Pain (1-3) Albuterol Sulfate 1 puff 08/28/20 22:48 08/29/20 22:56 Albuterol 200 Puff (6.7gm Inhaler) INH 1 puff Q4H PRN Administration SOB &/or Wheezing Apixaban 2.5 mg 09/11/20 09:00 09/16/20 10:06 Apixaban 2.5 Mg Tab PER TUBE 2.5 mg BID INGRID Administration Ascorbic Acid 1,000 mg 08/30/20 09:00 09/16/20 10:06 Ascorbic Acid 500 Mg Chewable Tablet PO 1,000 mg DAILY INGRID Administration Aspirin 81 mg 09/11/20 09:00 09/16/20 10:06 Aspirin Chewable 81 Mg Tab PO 81 mg DAILY INGRID Administration Atorvastatin Calcium 40 mg 09/04/20 21:00 09/15/20 20:37 Atorvastatin Calcium 40 Mg Tab PO 40 mg HS INGRID Administration Cholecalciferol 5,000 units 09/05/20 21:00 09/15/20 20:37 Cholecalciferol 1,000 Units (25 Mcg) Tab PO 5,000 units HS INGRID Administration Dexamethasone 6 mg 08/29/20 21:00 09/15/20 20:38 Dexamethasone 4 Mg/Ml Vial SLOW IVP 6 mg Q24H INGRID Administration Dextrose/Water 25 gm 08/28/20 22:33 09/09/20 21:28 Dextrose 50% Abboject 50 Ml Syringe SLOW IVP 25 gm PRN PRN Administration Hypoglycemia Guaifenesin/Dextromethorphan 15 ml 08/28/20 21:56 09/07/20 00:02 Guaifenesin Dm 100-10/5 Ml Udcup PO 15 ml Q4H PRN Administration Cough Sodium Chloride 1,000 mls @ 30 mls/hr 09/06/20 17:15 09/15/20 18:35 Normal Saline 0.9% IV 1,000 mls .Q24H INGRID Administration Fentanyl 100 mls @ 0 mls/hr 09/07/20 16:00 09/16/20 06:55 Fentanyl Cadd IV 10/07/20 16:00 100 mls INF INGRID Administration Protocol Per Protocol Norepinephrine Bitartrate 250 mls @ 0 mls/hr 09/08/20 10:15 09/15/20 18:35 Levophed IVPB 250 mls INF INGRID Administration Piperacillin Sod/Tazobactam 100 mls @ 200 mls/hr 09/10/20 20:00 09/16/20 09:05 Sod 2.25 gm/ Sodium Chloride IVPB 100 mls 08,1999 INGRID Administration Insulin Human Lispro 0 units 08/28/20 22:33 09/15/20 16:08 Humalog 300 Units/3 Ml Vial SC 3 unit .MILD SLIDING SCALE PRN Administration Mild Correctional Scale Insulin Human Lispro 0 units 08/30/20 01:38 09/14/20 22:21 Humalog 300 Units/3 Ml Vial SC 3 unit .BEDTIME SLIDING SC PRN Administration Bedtime Correctional Scale Insulin Human NPH 30 unit 09/12/20 08:30 09/15/20 20:38 Nph, Human Insulin Isophane 300 Unit/3 Ml Vial SC 30 unit BID INGRID Administration Lorazepam 2 mg 09/07/20 16:00 09/14/20 12:32 Lorazepam 2 Mg/Ml Vial SLOW IVP 10/07/20 16:00 2 mg Q1H PRN Administration Breakthrough agitation Pantoprazole Sodium 40 mg 09/11/20 09:00 09/16/20 10:06 Pantoprazole 40 Mg Granules Packet PO 40 mg DAILY INGRID Administration Propofol 1,000 mg 09/07/20 16:00 09/15/20 19:49 Propofol 1,000 Mg/100 Ml Vial IV 10/07/20 16:00 1,000 mg INF PRN Administration TO ACHIEVE GOAL RASS Protocol Sodium Chloride 10 ml 09/04/20 20:06 09/11/20 07:55 Flush - Normal Saline 10 Ml Syringe IVF 10 ml PRN PRN Administration Saline Flush Vecuronium [place] 10 mg 09/07/20 15:54 09/16/20 10:23 Vecuronium 10 Mg Vial IV 10 mg Q1H PRN Administration MOVEMENT Zinc Sulfate 220 mg 08/30/20 09:00 09/16/20 10:06 Zinc Sulfate 220 Mg Cap PO 220 mg DAILY INGRID Administration Hospitalist Exam Vitals: Vital Signs (12 hours) Temp Pulse Resp 09/16/20 08:00 98.8 F 30 H 09/16/20 07:55 109 H 09/16/20 06:00 30 H 09/16/20 04:00 98.5 F 30 H 09/16/20 02:54 98 09/16/20 02:00 30 H 09/16/20 00:00 98.7 F 30 H Weight Admit Weight 194 lb 12.8 oz Weight 197 lb 4.8 oz Most Recent Monitor Data Heart Rate from ECG 107 NIBP 128/75 NIBP BP-Mean 92 Respiration from ECG 31 SpO2 91 General Appearance: NAD, ill appearing General - other findings: On ventilator Eye: PERRL ENT: normocephalic atraumatic Neck: supple, symmetric, no JVD Heart: RRR, no murmur, no gallops Respiratory: no wheezes, no rales, no ronchi Gastrointestinal: soft Extremities: no edema Hosp A/P (1) Acute respiratory failure due to COVID-19 Code(s): U07.1 - COVID-19; J96.00 - ACUTE RESPIRATORY FAILURE, UNSP W HYPOXIA OR HYPERCAPNIA Status: Acute (2) Pneumonia due to 2019 novel coronavirus Code(s): U07.1 - COVID-19; J12.82 - PNEUMONIA DUE TO CORONAVIRUS DISEASE 2019 Status: Acute (3) Acute CVA (cerebrovascular accident) Code(s): I63.9 - CEREBRAL INFARCTION, UNSPECIFIED Status: Acute (4) Acute kidney failure Status: Acute (5) Hyperkalemia Code(s): E87.5 - HYPERKALEMIA Status: Acute (6) Thrombocytopenia Code(s): D69.6 - THROMBOCYTOPENIA, UNSPECIFIED Status: Acute (7) Diabetes type 2, controlled Code(s): E11.9 - TYPE 2 DIABETES MELLITUS WITHOUT COMPLICATIONS Status: Acute Qualifiers: Diabetes mellitus ferry terminal agent insulin use: with ferry terminal agent use Diabetes mellitus complication status: with kidney complications Chronic kidney disease stage: on chronic dialysis (8) Hypertension Code(s): I10 - ESSENTIAL (PRIMARY) HYPERTENSION Status: Chronic Qualifiers: Hypertension type: essential hypertension Qualified Code(s): I10 - Essential (primary) hypertension - Plan old records reviewed/req, plan discussed w/ family Continue Zosyn for now Continue Eliquis Continue ventilator support as per pulmonology Prognosis poor Discussed with the patient's son and updated with plan of care
[2020-09-16] MEDS: HumaLOG 300 UNITS/3 ML VIAL SC PRN ×3 (10:31→21:37)
--- NOTE | 2020-09-16 10:56 | RAD ---
EXAM: Chest one view: HISTORY: Follow-up pneumonia COMPARISON: 09/15/2020 FINDINGS: Stable life-support tubes. Heart size: Borderline in size. Lungs: Extensive but overall stable bilateral pneumonia. No pneumothorax. IMPRESSION: Stable exam. Continued short-term follow-up.
[2020-09-16] MEDS: Propofol 1,000 MG/100 ML VIAL IV PRN ×2 (11:45→21:22)
--- NOTE | 2020-09-16 13:32 | PDOC.BPN ---
- Brief Progress Note Encounter Date: 09/16/20 Encounter Time: 13:32 Subjective: Patient continues to intubated on mechanical ventilator. He is currently 60% FiO2, tolerated hemodialysis yesterday. Patient's family was present in the room at the time of examination Review of systems Gen.: No fever, no chills All the 14 systems reviewed except for the ones mentioned above are negative Physical examination Vital Signs Temp 98.4 F 09/16/20 12:00 Pulse 105 H 09/16/20 15:05 Resp 30 H 09/16/20 16:00 BP 101/67 09/16/20 15:05 Pulse Ox 92 L 09/16/20 08:00 Intake & Output 09/15/20 09/16/20 09/16/20 18:59 06:59 18:59 Intake Total 25 1003.3 120 Output Total 0 0 0 Balance 25 1003.3 120 Weight 197 lb 4.8 oz Intake: Intake, IV Amount 608.3 Norepinephrine 8 MG/0.9% 23.3 NS 250 ml @ 0 mls/hr IVPB INF INGRID Rx#:[id number] Propofol 1000 mg (See 145 Protocol) IV INF PRN Rx#: [id number] Sodium Chloride 0.9% 1, 440 000 ml @ 30 mls/hr IV . Q24H INGRID Rx#:[id number] Tube Feeding 335 Tube Irrigant 25 60 120 Output: Output, Lemus 0 0 0 Other: Voiding Method Indwelling Catheter Indwelling Catheter Indwelling Catheter Constitutional: Patient is on mechanical ventilator, intubated HEENT: ET tube and OG tube noted Neck: Trachea midline, no lymphadenopathy Heart: Regular rate and rhythm; no murmurs Lungs: Transmitted breath sounds, no wheezing Abdomen: Soft; non=tender; no guarding/tenderness/rebound Extremities: No calf tenderness; no ulcers, no bruises Neurological: Patient is sedated+ Skin: No rash, no ulcers Psychological: Not agitated Labs and Imaging reviewed Laboratory Results - last 24 hr 09/15/20 09/16/20 09/16/20 21:44 04:05 07:40 WBC RBC Hgb Hct MCV MCH MCHC RDW Plt Count MPV Neutrophils % Neutrophils % (Manual) Lymphocytes % Monocytes % Eosinophils % Basophils % Neutrophils # Lymphocytes # Monocytes # Eosinophils # Basophils # Specimen Type a Puncture Site RRA Bicarbonate Actual 28.5 H ABG pH 7.29 L ABG pCO2 61.1 H* ABG pO2 87.1 H ABG O2 Sat (Measured) 95.9 ABG O2 Content 14.0 L ABG Base Excess 1.0 ABG Hematocrit 31.0 L ABG Hemoglobin 10.4 L ABG Oxyhemoglobin 95.2 ABG Carboxyhemoglobin 0.4 ABG Methemoglobin 0.30 ABG Deoxyhemoglobin 4.1 H Uriel Test Not Reportable A-a O2 Gradient 264.325 H Ionized Calcium 1.01 L Mode of Support BL 35/12 % Minute Volume 8.5 Mechanical Rate 30 Inspired O2 60 Inspiratory Time 0.90 Tidal Volume 287 Peak Inspir Pressure 38 Pressure Support 12 Sodium 138 133 L Potassium 5.0 4.68 Chloride 98 98 Carbon Dioxide 29 Anion Gap 16 BUN 63 H Creatinine 6.35 H Estimated GFR (MDRD) 9 Glucose 195 H POC Glucose 151 H Calcium 7.3 L 09/16/20 09/16/20 07:50 10:22 WBC 13.7 H RBC 3.36 L Hgb 10.4 L Hct 31.7 L MCV 94.5 MCH 30.9 MCHC 32.7 RDW 13.8 Plt Count 87 L MPV 10.5 H Neutrophils % 87.9 H Neutrophils % (Manual) Not Reportable Lymphocytes % 5.9 L Monocytes % 5.2 Eosinophils % 1.0 Basophils % 0.0 Neutrophils # 12.0 H Lymphocytes # 0.8 L Monocytes # 0.7 H Eosinophils # 0.1 Basophils # 0.0 Specimen Type Puncture Site Bicarbonate Actual ABG pH ABG pCO2 ABG pO2 ABG O2 Sat (Measured) ABG O2 Content ABG Base Excess ABG Hematocrit ABG Hemoglobin ABG Oxyhemoglobin ABG Carboxyhemoglobin ABG Methemoglobin ABG Deoxyhemoglobin Uriel Test A-a O2 Gradient Ionized Calcium Mode of Support % Minute Volume Mechanical Rate Inspired O2 Inspiratory Time Tidal Volume Peak Inspir Pressure Pressure Support Sodium Potassium Chloride Carbon Dioxide Anion Gap BUN Creatinine Estimated GFR (MDRD) Glucose POC Glucose 230 H Calcium Active Medications Generic Name Dose Route Start Last Admin Trade Name Freq PRN Reason Stop Dose Admin Acetaminophen 650 mg 08/28/20 21:56 09/03/20 04:27 Acetaminophen 325 Mg Tab PO 650 mg Q4H PRN Administration Headache/Fever/Mild Pain (1-3) Albuterol Sulfate 1 puff 08/28/20 22:48 01/13/21 22:56 Albuterol 200 Puff (6.7gm Inhaler) INH 1 puff Q4H PRN Administration SOB &/or Wheezing Apixaban 2.5 mg 09/11/20 09:00 09/16/20 10:06 Apixaban 2.5 Mg Tab PER TUBE 2.5 mg BID INGRID Administration Ascorbic Acid 1,000 mg 08/30/20 09:00 09/16/20 10:06 Ascorbic Acid 500 Mg Chewable Tablet PO 1,000 mg DAILY INGRID Administration Aspirin 81 mg 09/11/20 09:00 09/16/20 10:06 Aspirin Chewable 81 Mg Tab PO 81 mg DAILY INGRID Administration Atorvastatin Calcium 40 mg 09/04/20 21:00 09/15/20 20:37 Atorvastatin Calcium 40 Mg Tab PO 40 mg HS INGRID Administration Calcium Carbonate 1,000 mg 09/02/20 13:05 Calcium Carbonate 500 Mg Chewtab PO DAILYPRN PRN Heartburn or Indigestion Cholecalciferol 5,000 units 09/05/20 21:00 09/15/20 20:37 Cholecalciferol 1,000 Units (25 Mcg) Tab PO 5,000 units HS INGRID Administration Clonidine 0.1 mg 08/28/20 21:56 Clonidine 0.1 Mg Tab PO BID PRN SBP > 160 use second Dexamethasone 6 mg 08/29/20 21:00 09/15/20 20:38 Dexamethasone 4 Mg/Ml Vial SLOW IVP 6 mg Q24H INGRID Administration Dextrose/Water 25 gm 08/28/20 22:33 09/09/20 21:28 Dextrose 50% Abboject 50 Ml Syringe SLOW IVP 25 gm PRN PRN Administration Hypoglycemia Glucagon 1 mg 08/28/20 22:33 Glucagon 1 Mg/Ml Vial IM PRN PRN Hypoglycemia Guaifenesin/Dextromethorphan 15 ml 08/28/20 21:56 09/07/20 00:02 Guaifenesin Dm 100-10/5 Ml Udcup PO 15 ml Q4H PRN Administration Cough Hydralazine HCl 10 mg 08/28/20 21:56 Hydralazine 20 Mg/Ml Vial SLOW IVP Q6H PRN SBP GREATER THAN 160 Promethazine HCl 12.5 mg/ 50.5 mls @ 202 mls/hr 08/28/20 21:56 Sodium Chloride IVPB Q6H PRN Nausea/vomiting use second Dextrose/Water 1,000 mls @ 0 mls/hr 08/28/20 22:33 D5w IV .Q0M PRN Hypoglycemia As Directed Sodium Chloride 1,000 mls @ 30 mls/hr 09/06/20 17:15 09/15/20 18:35 Normal Saline 0.9% IV 1,000 mls .Q24H INGRID Administration Fentanyl 100 mls @ 0 mls/hr 09/07/20 16:00 09/16/20 06:55 Fentanyl Cadd IV 10/07/20 16:00 100 mls INF INGRID Administration Protocol Per Protocol Fentanyl Citrate 250 mls @ 0 mls/hr 09/07/20 16:00 Fentanyl Bolus IVPB 10/07/20 16:00 PRN PRN Breakthrough pain/agitation As Directed Norepinephrine Bitartrate 250 mls @ 0 mls/hr 09/08/20 10:15 09/15/20 18:35 Levophed IVPB 250 mls INF INGRID Administration Piperacillin Sod/Tazobactam 100 mls @ 200 mls/hr 09/10/20 20:00 09/16/20 09:05 Sod 2.25 gm/ Sodium Chloride IVPB 100 mls 0800,2000 INGRID Administration Insulin Human Lispro 0 units 08/28/20 22:33 09/16/20 16:30 Humalog 300 Units/3 Ml Vial SC 3 unit .MILD SLIDING SCALE PRN Administration Mild Correctional Scale Insulin Human Lispro 0 units 08/30/20 01:38 09/14/20 22:21 Humalog 300 Units/3 Ml Vial SC 3 unit .BEDTIME SLIDING SC PRN Administration Bedtime Correctional Scale Insulin Human NPH 30 unit 09/12/20 08:30 09/16/20 10:29 Nph, Human Insulin Isophane 300 Unit/3 Ml Vial SC 30 unit BID INGRID Administration Labetalol HCl 20 mg 08/28/20 21:56 Labetalol Hcl 100 Mg/20 Ml Vial SLOW IVP Q4H PRN SBP > 160 use first Lorazepam 2 mg 09/07/20 16:00 09/14/20 12:32 Lorazepam 2 Mg/Ml Vial SLOW IVP 10/07/20 16:00 2 mg Q1H PRN Administration Breakthrough agitation Miscellaneous Medication 1 each 09/10/20 11:49 Zosyn IVPB PRN PRN Pharmacy to dose Morphine Sulfate 2 mg 09/07/20 16:00 Morphine 2 Mg/Ml Vial SLOW IVP 10/07/20 16:00 Q1H PRN Breakthrough Pain/Agitation Discontinue Previous 1 each 09/07/20 16:00 Narcotic Pain FS 10/07/20 16:00 Medications And .ONE INGRID Benzodiazepines Ondansetron HCl 4 mg 08/28/20 21:56 Ondansetron Pf 4 Mg/2 Ml Vial IVP Q6H PRN Nausea/Vomiting use 1st Pantoprazole Sodium 40 mg 09/11/20 09:00 09/16/20 10:06 Pantoprazole 40 Mg Granules Packet PO 40 mg DAILY INGRID Administration Propofol 1,000 mg 09/07/20 16:00 09/16/20 11:45 Propofol 1,000 Mg/100 Ml Vial IV 10/07/20 16:00 1,000 mg INF PRN Administration TO ACHIEVE GOAL RASS Protocol Propofol 20 mg 09/07/20 16:00 Propofol Bolus 1,000 Mg/100 Ml Vial IV 10/07/20 16:00 Q5MIN PRN BREAKTHROUGH AGITATION Simethicone 80 mg 09/02/20 13:05 Simethicone Chewable 80 Mg Tab PO PCHS PRN Gas Pain Sodium Chloride 10 ml 09/04/20 20:06 09/11/20 07:55 Flush - Normal Saline 10 Ml Syringe IVF 10 ml PRN PRN Administration Saline Flush Vecuronium [place] 10 mg 09/07/20 15:54 09/16/20 13:56 Vecuronium 10 Mg Vial IV 10 mg Q1H PRN Administration MOVEMENT Zinc Sulfate 220 mg 08/30/20 09:00 09/16/20 10:06 Zinc Sulfate 220 Mg Cap PO 220 mg DAILY INGRID Administration Assessment and plan CKD stage Hyperkalemia Uremia Pneumonia due to COVID-19 Patient tolerated hemodialysis yesterday. He continues to be anuric. Suggest limiting total input per day to 1 to 1.2 L. Patient is currently on Zosyn adjusted for renal function. Discussed with patient's family. Patient's son expressed concern that patient may not tolerate hemodialysis. Answered all his questions to his satisfaction. He verbalized understanding. Discussed with RN
[2020-09-16] MEDS: Sodium Chloride 0.9% 1,000 ML IV SCH (17:36)
[2020-09-16] MEDS: Dexamethasone 4 mg/ml Vial SLOW IVP SCH (21:23)
[2020-09-16] MEDS: Cholecalciferol 1,000 UNITS (25 MCG) TAB PO SCH (21:25)
[2020-09-16] MEDS: Atorvastatin Calcium 40 MG TAB PO SCH (21:25)
[2020-09-17] MEDS: Vecuronium 10 MG VIAL IV PRN ×7 (01:25→20:27)
[2020-09-17] MEDS ORDERED: Fentanyl CADD 100 ML ONE (02:49)
[2020-09-17] MEDS: HumaLOG 300 UNITS/3 ML VIAL SC PRN ×2 (04:04→10:20)
[2020-09-17 04:46] LABS: Anion Gap 19 mmol/L (10-20); BUN (Urea Nitrogen) 85 mg/dL (8.4-25.7); Calc. Creatinine Clearance 12 mL/min (70-130); Calcium 8.1 mg/dL (7.8-10.44); Carbon Dioxide 27 mmol/L (23-31); Chloride 97 mmol/L (98-107); Glucose 187 mg/dL (80-115); Potassium 6.1 mmol/L (3.5-5.1); Sodium 137 mmol/L (136-145)
[2020-09-17 04:50] LABS: Band 16 % (5-11); Hemoglobin 10.8 g/dL (14.0-18.0); Lymphocytes 5 % (21-51); MDiff Complete? YES; Mean Corpuscular HGB CONC 32.9 g/dL (32.0-36.0); Mean Corpuscular Hemoglobin 31.3 pg (27.0-31.0); Mean Corpuscular Volume 94.9 fL (78.0-98.0); Mean Platelet Volume 10.2 fL (7.4-10.4); Neutrophil 79 % (42-75); Nucleated RBC 1 % (0); Platelet Count 127 thou/uL (130-400); Red Blood Cell (RBC) Count 3.46 mill/uL (4.70-6.10); White Blood Cell (WBC) Count 20.8 thou/uL (4.8-10.8)
[2020-09-17 07:53] LABS: CO2 Tension 84.9 mmHg (35.0-45.0); pH, Arterial 7.11 (7.35-7.45)
[2020-09-17 07:54] LABS: Actual Bicarbonate (HCO3a) 26.3 mEq/L (22-28); Analyzer IN Cardio OR; Base Excess (BEa) -4.2 mEq/L (-2.0 to +3.0); Calcium, Ionized (arterial) 1.08 mmol/L (1.12-1.30); Carboxyhemoglobin (COHb) 0.9 gm% (0.0-3.0); Hemoglobin (Hb) 9.8 g/dL (14.0-18.0); O2 Tension (PaO2), arterial 82.7 mmHg (> 80.0); Potassium - ABG Lab 5.98 mmol/L (3.70-5.30)
[2020-09-17 07:55] LABS: ALV-art Gradient 238.975 mmHg (0-20); Puncture Site RBA
[2020-09-17] MEDS: Piperacillin/Tazobactam 2.25 GM in Sodium Chloride 0.9% 100 ML IVPB SCH ×2 (07:56→19:41)
[2020-09-17] MEDS: Ascorbic Acid 500 mg Chewable Tablet PO SCH (08:02)
[2020-09-17] MEDS: Zinc Sulfate 220 MG CAP PO SCH (08:03)
[2020-09-17] MEDS: Apixaban 2.5 MG TAB PER TUBE SCH ×2 (08:03→19:47)
[2020-09-17] MEDS: Pantoprazole 40 MG GRANULES PACKET PO SCH (08:03)
[2020-09-17] MEDS: Aspirin Chewable 81 MG TAB PO SCH (08:03)
[2020-09-17] MEDS: NPH, Human Insulin Isophane 300 UNIT/3 ML VIAL SC SCH ×2 (08:06→20:34)
--- NOTE | 2020-09-17 08:29 | RAD ---
Exam: Chest one view HISTORY:Pneumonia Comparison: 09/16/2020 FINDINGS: Lines and tubes: Endotracheal tube and nasogastric tube are unchanged Cardiac silhouette: Normal Aorta: Unremarkable Pulmonary vessels: Normal Costophrenic angles: Clear LUNGS: Improved aeration lung parenchyma. Residual interstitial and alveolar opacities remain. Pneumothorax: None Osseous abnormalities: None IMPRESSION: Improved multi lobar pneumonia
[2020-09-17] MEDS: Propofol 1,000 MG/100 ML VIAL IV PRN ×2 (08:37→19:41)
--- NOTE | 2020-09-17 11:32 | PDOC.HOSPP ---
- Subjective Encounter Date: 09/17/20 Encounter Time: 10:15 Subjective: Patient seen and examined bedside today, patient is on ventilator, - Objective Vital Signs & Weight: Vital Signs (12 hours) Temp Pulse Resp BP Pulse Ox 09/17/20 10:53 102 H 114/70 09/17/20 10:00 30 H 09/17/20 08:00 98.9 F 30 H 91 L 09/17/20 07:01 110 H 123/68 09/17/20 06:00 30 H 09/17/20 04:00 98.7 F 30 H 09/17/20 02:00 30 H 09/17/20 00:00 99.5 F 30 H Weight Admit Weight 194 lb 12.8 oz Weight 202 lb 13.204 oz Most Recent Monitor Data Heart Rate from ECG 101 NIBP 118/69 NIBP BP-Mean 85 Respiration from ECG 30 SpO2 91 I&O: 09/16/20 09/17/20 09/18/20 06:59 06:59 06:59 Intake Total 1028.3 2037 Output Total 0 5 Balance 1028.3 203 Result Diagrams: 09/17/20 04:00 09/17/20 04:00 Additional Labs: Accuchecks 09/17/20 09/17/20 09/16/20 10:18 04:04 21:36 POC Glucose 168 H 177 H 196 H 09/16/20 16:27 POC Glucose 234 H Radiology Reviewed by me: Yes (Chest x-ray reviewed) EKG Reviewed by me: Yes (Sinus rhythm) Hospitalist ROS - Review of Systems ROS unobtainable: due to endotracheal tube - Medication Medications: Active Medications Generic Name Dose Route Start Last Admin Trade Name Freq PRN Reason Stop Dose Admin Acetaminophen 650 mg 08/28/20 21:56 09/03/20 04:27 Acetaminophen 325 Mg Tab PO 650 mg Q4H PRN Administration Headache/Fever/Mild Pain (1-3) Albuterol Sulfate 1 puff 08/28/20 22:48 08/29/20 22:56 Albuterol 200 Puff (6.7gm Inhaler) INH 1 puff Q4H PRN Administration SOB &/or Wheezing Apixaban 2.5 mg 09/11/20 09:00 09/17/20 08:03 Apixaban 2.5 Mg Tab PER TUBE 2.5 mg BID INGRID Administration Ascorbic Acid 1,000 mg 08/30/20 09:00 09/17/20 08:02 Ascorbic Acid 500 Mg Chewable Tablet PO 1,000 mg DAILY INGRID Administration Aspirin 81 mg 09/11/20 09:00 09/17/20 08:03 Aspirin Chewable 81 Mg Tab PO 81 mg DAILY INGRID Administration Atorvastatin Calcium 40 mg 09/04/20 21:00 09/16/20 21:25 Atorvastatin Calcium 40 Mg Tab PO 40 mg HS INGRID Administration Cholecalciferol 5,000 units 09/05/20 21:00 09/16/20 21:25 Cholecalciferol 1,000 Units (25 Mcg) Tab PO 5,000 units HS INGRID Administration Dexamethasone 6 mg 08/29/20 21:00 09/16/20 21:23 Dexamethasone 4 Mg/Ml Vial SLOW IVP 6 mg Q24H INGRID Administration Dextrose/Water 25 gm 08/28/20 22:33 09/09/20 21:28 Dextrose 50% Abboject 50 Ml Syringe SLOW IVP 25 gm PRN PRN Administration Hypoglycemia Guaifenesin/Dextromethorphan 15 ml 08/28/20 21:56 09/07/20 00:02 Guaifenesin Dm 100-10/5 Ml Udcup PO 15 ml Q4H PRN Administration Cough Sodium Chloride 1,000 mls @ 30 mls/hr 09/06/20 17:15 09/16/20 17:36 Normal Saline 0.9% IV 1,000 mls .Q24H INGRID Administration Fentanyl 100 mls @ 0 mls/hr 09/07/20 16:00 09/16/20 06:55 Fentanyl Cadd IV 10/07/20 16:00 100 mls INF INGRID Administration Protocol Per Protocol Norepinephrine Bitartrate 250 mls @ 0 mls/hr 09/08/20 10:15 09/15/20 18:35 Levophed IVPB 250 mls INF INGRID Administration Piperacillin Sod/Tazobactam 100 mls @ 200 mls/hr 09/10/20 20:00 09/17/20 07:56 Sod 2.25 gm/ Sodium Chloride IVPB 100 mls 0800,2000 INGRID Administration Insulin Human Lispro 0 units 08/28/20 22:33 09/17/20 10:20 Humalog 300 Units/3 Ml Vial SC 2 unit .MILD SLIDING SCALE PRN Administration Mild Correctional Scale Insulin Human Lispro 0 units 08/30/20 01:38 09/14/20 22:21 Humalog 300 Units/3 Ml Vial SC 3 unit .BEDTIME SLIDING SC PRN Administration Bedtime Correctional Scale Insulin Human NPH 30 unit 09/12/20 08:30 09/17/20 08:06 Nph, Human Insulin Isophane 300 Unit/3 Ml Vial SC 30 unit BID INGRID Administration Lorazepam 2 mg 09/07/20 16:00 09/14/20 12:32 Lorazepam 2 Mg/Ml Vial SLOW IVP 10/07/20 16:00 2 mg Q1H PRN Administration Breakthrough agitation Pantoprazole Sodium 40 mg 09/11/20 09:00 09/17/20 08:03 Pantoprazole 40 Mg Granules Packet PO 40 mg DAILY INGRID Administration Propofol 1,000 mg 09/07/20 16:00 09/17/20 08:37 Propofol 1,000 Mg/100 Ml Vial IV 10/07/20 16:00 1,000 mg INF PRN Administration TO ACHIEVE GOAL RASS Protocol Sodium Chloride 10 ml 09/04/20 20:06 09/11/20 07:55 Flush - Normal Saline 10 Ml Syringe IVF 10 ml PRN PRN Administration Saline Flush Vecuronium [place] 10 mg 09/07/20 15:54 09/17/20 07:58 Vecuronium 10 Mg Vial IV 10 mg Q1H PRN Administration MOVEMENT Zinc Sulfate 220 mg 08/30/20 09:00 09/17/20 08:03 Zinc Sulfate 220 Mg Cap PO 220 mg DAILY INGRID Administration Hospitalist Exam Vitals: Vital Signs (12 hours) Temp Pulse Resp BP Pulse Ox 09/17/20 10:53 102 H 114/70 09/17/20 10:00 30 H 09/17/20 08:00 98.9 F 30 H 91 L 09/17/20 07:01 110 H 123/68 09/17/20 06:00 30 H 09/17/20 04:00 98.7 F 30 H 09/17/20 02:00 30 H 09/17/20 00:00 99.5 F 30 H Weight Admit Weight 194 lb 12.8 oz Weight 202 lb 13.204 oz Most Recent Monitor Data Heart Rate from ECG 101 NIBP 118/69 NIBP BP-Mean 85 Respiration from ECG 30 SpO2 91 General Appearance: NAD General - other findings: On ventilator Eye: PERRL ENT: normocephalic atraumatic Neck: supple, symmetric, no JVD Heart: no murmur, no gallops, no rubs Respiratory: no wheezes, no rales, no ronchi Gastrointestinal: soft, non-distended, normal bowel sounds Extremities: no edema Hosp A/P (1) Acute respiratory failure due to COVID-19 Code(s): U07.1 - COVID-19; J96.00 - ACUTE RESPIRATORY FAILURE, UNSP W HYPOXIA OR HYPERCAPNIA Status: Acute (2) Pneumonia due to 2019 novel coronavirus Code(s): U07.1 - COVID-19; J12.82 - PNEUMONIA DUE TO CORONAVIRUS DISEASE 2019 Status: Acute (3) Acute CVA (cerebrovascular accident) Code(s): I63.9 - CEREBRAL INFARCTION, UNSPECIFIED Status: Acute (4) Acute kidney failure Status: Acute (5) Hyperkalemia Code(s): E87.5 - HYPERKALEMIA Status: Acute (6) Thrombocytopenia Code(s): D69.6 - THROMBOCYTOPENIA, UNSPECIFIED Status: Acute (7) Diabetes type 2, controlled Code(s): E11.9 - TYPE 2 DIABETES MELLITUS WITHOUT COMPLICATIONS Status: Acute Qualifiers: Diabetes mellitus residential insulin use: with residential use Diabetes mellitus complication status: with kidney complications Chronic kidney disease stage: on chronic dialysis (8) Hypertension Code(s): I10 - ESSENTIAL (PRIMARY) HYPERTENSION Status: Chronic Qualifiers: Hypertension type: essential hypertension Qualified Code(s): I10 - Essential (primary) hypertension - Plan old records reviewed/req, continue antibiotics Continue Zosyn for now Continue Eliquis Continue ventilator support as per pulmonology Prognosis poor Medication reviewed and continue provide symptomatic supportive care
--- NOTE | 2020-09-17 11:55 | PDOC.FMACP ---
Advance Care Planning - Problem (1) Palliative care encounter Status: Acute Code(s): Z51.5 - ENCOUNTER FOR PALLIATIVE CARE (2) Acute CVA (cerebrovascular accident) Status: Acute Code(s): I63.9 - CEREBRAL INFARCTION, UNSPECIFIED (3) Acute kidney failure Status: Acute (4) Acute respiratory failure due to COVID-19 Status: Acute Code(s): U07.1 - COVID-19; J96.00 - ACUTE RESPIRATORY FAILURE, UNSP W HYPOXIA OR HYPERCAPNIA (5) Diabetes type 2, controlled Status: Acute Code(s): E11.9 - TYPE 2 DIABETES MELLITUS WITHOUT COMPLICATIONS Qualifiers: Diabetes mellitus rodent exterminator insulin use: with rodent exterminator use Diabetes mellitus complication status: with kidney complications Chronic kidney disease stage: on chronic dialysis - Note Participants: family, surrogate decision-maker, palliative care Summary: Palliative care revisited Advanced Care Planning. The diagnosis, prognosis and goals of care were discussed. Appropriate forms and documentation to accomplish the goals of care were discussed. All questions were answered. In life review Gordo states his father was always "busy" and did not desire to live on "Machines" Patient designated patient son Gordo Valdes as surrogate decision maker. Family has elected to transition to DNAR Desire to have dialysis today, understanding of patient fragile state and may not tolerate dialysis. Will revisit goal of care 09/18/20 Dr Payan notified Time Spent (mins): 45
[2020-09-17] MEDS ORDERED: Heparin 10,000 UNITS/ 10 ML VIAL ONE (12:04)
[2020-09-17] MEDS ORDERED: Albumin 25% 25 GM/100 ML BOT IVPB PRN (14:28)
--- NOTE | 2020-09-17 16:14 | PRG ---
DATE OF SERVICE: 09/17/2020 SUBJECTIVE: The patient was seen at the bedside. He remains intubated and not responding. Son was at the bedside. OBJECTIVE: GENERAL: This is an elderly male, intubated. VITAL SIGNS: Temperature 99.4, pulse 100, respiratory rate . HEENT: Intubated. CARDIOVASCULAR: S1 and S2 heard. RESPIRATORY: Coarse breath sounds. GASTROINTESTINAL: Abdomen is soft MUSCULOSKELETAL: 1+ edema. DERMATOLOGIC: No skin rash. NEUROLOGIC: Intubated. LABORATORY DATA: Hemoglobin is 10.8. Potassium 6.1, BUN is 85, creatinine is 8.3. ASSESSMENT AND PLAN: 1. Acute kidney injury on chronic kidney disease stage 3, remains dialysis dependent. Prognosis is poor. 2. Hyperkalemia. We will have dialysis today. The patient did not tolerate few sessions in the dialysis last week. 3. History of COVID-19 infection. 4. Acute hypoxic respiratory failure. 5. Acidosis, better. Plan to have dialysis. Follow up with the family regarding the long-term plan and care. We will have dialysis until plan is in place. We will follow. Job ID: [id number]
[2020-09-17] MEDS: Sodium Chloride 0.9% 1,000 ML IV SCH (16:41)
--- NOTE | 2020-09-17 19:30 | PRG ---
DATE OF SERVICE: 09/17/2020 SUBJECTIVE: Baldomero Valdes remains mechanically ventilated. OBJECTIVE: VITAL SIGNS: Heart rates 100 respiratory rates in the high 20s to low 30s, FiO2 is 55%, blood pressure 113/71. LUNGS: Remarkable for equal breath sounds. HEART: Regular rhythm. ABDOMEN: Soft. LABORATORY DATA: White count 20.8, hemoglobin 10.8, and platelets 127. Sodium 137, potassium 6.1, chloride 97, bicarb 27, BUN 85, and creatinine 8.3. IMPRESSION AND PLAN: 1. COVID pneumonia with respiratory failure. 2. Status post cardiac arrest with likely anoxic injury. 3. Renal failure on dialysis. We will continue with supportive care. Pending family making decision regarding comfort measures, etc. Apparently, Palliative Care has done a great job with talking to family. The son admitted that the father was never inclined to want to be kept alive on a machine. He is a [id number] patient now. Job ID: [id number]
[2020-09-17] MEDS: Atorvastatin Calcium 40 MG TAB PO SCH (19:41)
[2020-09-17] MEDS: Cholecalciferol 1,000 UNITS (25 MCG) TAB PO SCH (19:41)
[2020-09-17] MEDS: Dexamethasone 4 mg/ml Vial SLOW IVP SCH (19:47)
[2020-09-18] MEDS: Vecuronium 10 MG VIAL IV PRN ×5 (00:07→11:54)
[2020-09-18 05:20] LABS: Anion Gap 17 mmol/L (10-20); BUN (Urea Nitrogen) 57 mg/dL (8.4-25.7); Calc. Creatinine Clearance 0 mL/min (70-130); Calcium 7.8 mg/dL (7.8-10.44); Carbon Dioxide 27 mmol/L (23-31); Chloride 95 mmol/L (98-107); Glucose 174 mg/dL (80-115); Sodium 134 mmol/L (136-145)
[2020-09-18] MEDS: HumaLOG 300 UNITS/3 ML VIAL SC PRN (05:43)
[2020-09-18 05:49] LABS: Band 12 % (5-11); Hemoglobin 8.8 g/dL (14.0-18.0); Lymphocytes 4 % (21-51); MDiff Complete? YES; Mean Corpuscular HGB CONC 32.8 g/dL (32.0-36.0); Mean Corpuscular Hemoglobin 30.6 pg (27.0-31.0); Mean Corpuscular Volume 93.5 fL (78.0-98.0); Monocytes 3 % (0-10); Neutrophil 81 % (42-75); Platelet Count 84 thou/uL (130-400); Platelet Morphology Comment Appears Decreased; RBC Distribution Width 13.8 % (11.5-14.5); Red Blood Cell (RBC) Count 2.88 mill/uL (4.70-6.10)
[2020-09-18] MEDS: Propofol 1,000 MG/100 ML VIAL IV PRN (05:57)
--- NOTE | 2020-09-18 08:06 | RAD ---
Portable frontal chest radiograph: 09/18/2020 COMPARISON: 09/17/2020 HISTORY: Pneumonia FINDINGS: Stable endotracheal tube and nasogastric tube. Extensive coarse interstitial and alveolar o pacity noted bilaterally, right greater than left, with a perihilar/bibasilar predominance. The distribution and severity of parenchymal opacity does not appear significantly changed. IMPRESSION: No significant interval change.
[2020-09-18] MEDS ORDERED: Fentanyl CADD 100 ML ONE (09:05)
[2020-09-18] MEDS: Zinc Sulfate 220 MG CAP PO SCH (09:13)
[2020-09-18] MEDS: Piperacillin/Tazobactam 2.25 GM in Sodium Chloride 0.9% 100 ML IVPB SCH (09:13)
[2020-09-18] MEDS: Ascorbic Acid 500 mg Chewable Tablet PO SCH (09:14)
[2020-09-18] MEDS: Pantoprazole 40 MG GRANULES PACKET PO SCH (09:14)
[2020-09-18] MEDS: Apixaban 2.5 MG TAB PER TUBE SCH (09:14)
[2020-09-18] MEDS: Aspirin Chewable 81 MG TAB PO SCH (09:14)
--- NOTE | 2020-09-18 10:08 | PRG ---
DATE OF SERVICE: 09/18/2020 30 minutes critical care time. SUBJECTIVE: The patient remains intubated on mechanical ventilation. OBJECTIVE: VITAL SIGNS: Temperature 97.7, pulse 95, blood pressure 140/67. NEUROLOGIC: He continues to be obtunded. Will not respond to me. HEENT: Otherwise unchanged. NECK: No JVD. LUNGS: Coarse breath sounds. CARDIAC: S1 and S2. Regular. ABDOMEN: Soft. EXTREMITIES: Edematous. IMAGING: His chest x-ray shows bilateral infiltrates. LABORATORY DATA: Sodium 134, potassium 5, chloride 95, CO2 of 27, BUN 57, creatinine 5.7, glucose 174. White blood cell count 12, hematocrit 26.9, and platelet count 84. ASSESSMENT: 1. Status post cardiopulmonary arrest on Thursday. 2. COVID-19 pneumonia with respiratory failure. 3. Renal failure. PLAN: The patient is now DNR. I do not see him recovering. He is not weanable for a multitude of reasons. I would fully support withdrawal of care. The family agrees. Job ID: [id number]
--- NOTE | 2020-09-18 10:44 | PDOC.HOSPP ---
- Subjective Encounter Date: 09/18/20 Encounter Time: 10:30 Subjective: Patient seen and examined bedside today, patient is on ventilator, - Objective Vital Signs & Weight: Vital Signs (12 hours) Temp Pulse Resp BP 09/18/20 08:00 98.6 F 09/18/20 07:19 90 138/71 09/18/20 04:00 30 H 09/18/20 00:00 30 H Weight Admit Weight 194 lb 12.8 oz Weight 3.457 oz Most Recent Monitor Data Heart Rate from ECG 85 NIBP 127/59 NIBP BP-Mean 81 Respiration from ECG 30 SpO2 90 I&O: 09/17/20 09/18/20 09/19/20 06:59 06:59 06:59 Intake Total 2036 1872.8 200 Output Total 5 0 Balance 2031 1872.8 200 Result Diagrams: 09/18/20 04:45 09/18/20 04:45 Additional Labs: Accuchecks 09/18/20 09/17/20 09/17/20 09:39 20:33 16:00 POC Glucose 133 H 126 H 119 H Radiology Reviewed by me: Yes EKG Reviewed by me: Yes Hospitalist ROS - Review of Systems ROS unobtainable: due to endotracheal tube - Medication Medications: Active Medications Generic Name Dose Route Start Last Admin Trade Name Freq PRN Reason Stop Dose Admin Acetaminophen 650 mg 08/28/20 21:56 09/03/20 04:27 Acetaminophen 325 Mg Tab PO 650 mg Q4H PRN Administration Headache/Fever/Mild Pain (1-3) Albumin Human 25 gm 09/17/20 14:28 09/17/20 16:38 Albumin 25% 25 Gm/100 Ml Bot IVPB 25 gm WILLCALL PRN Administration WITH DIALYSIS Albuterol Sulfate 1 puff 08/28/20 22:48 08/29/20 22:56 Albuterol 200 Puff (6.7gm Inhaler) INH 1 puff Q4H PRN Administration SOB &/or Wheezing Apixaban 2.5 mg 09/11/20 09:00 09/18/20 09:14 Apixaban 2.5 Mg Tab PER TUBE 2.5 mg BID INGRID Administration Ascorbic Acid 1,000 mg 08/30/20 09:00 09/18/20 09:14 Ascorbic Acid 500 Mg Chewable Tablet PO 1,000 mg DAILY INGRID Administration Aspirin 81 mg 09/11/20 09:00 09/18/20 09:14 Aspirin Chewable 81 Mg Tab PO 81 mg DAILY INGRID Administration Atorvastatin Calcium 40 mg 09/04/20 21:00 09/17/20 19:41 Atorvastatin Calcium 40 Mg Tab PO 40 mg HS INGRID Administration Cholecalciferol 5,000 units 09/05/20 21:00 09/17/20 19:41 Cholecalciferol 1,000 Units (25 Mcg) Tab PO 5,000 units HS INGRID Administration Dexamethasone 6 mg 08/29/20 21:00 09/17/20 19:47 Dexamethasone 4 Mg/Ml Vial SLOW IVP 6 mg Q24H INGRID Administration Dextrose/Water 25 gm 08/28/20 22:33 09/09/20 21:28 Dextrose 50% Abboject 50 Ml Syringe SLOW IVP 25 gm PRN PRN Administration Hypoglycemia Guaifenesin/Dextromethorphan 15 ml 08/28/20 21:56 09/07/20 00:02 Guaifenesin Dm 100-10/5 Ml Udcup PO 15 ml Q4H PRN Administration Cough Sodium Chloride 1,000 mls @ 30 mls/hr 09/06/20 17:15 09/17/20 16:41 Normal Saline 0.9% IV 1,000 mls .Q24H INGRID Administration Fentanyl 100 mls @ 0 mls/hr 09/07/20 16:00 09/16/20 06:55 Fentanyl Cadd IV 10/07/20 16:00 100 mls INF INGRID Administration Protocol Per Protocol Norepinephrine Bitartrate 250 mls @ 0 mls/hr 09/08/20 10:15 09/15/20 18:35 Levophed IVPB 250 mls INF INGRID Administration Piperacillin Sod/Tazobactam 100 mls @ 200 mls/hr 09/10/20 20:00 09/18/20 09:13 Sod 2.25 gm/ Sodium Chloride IVPB 100 mls 08,1999 INGRID Administration Insulin Human Lispro 0 units 08/28/20 22:33 09/18/20 05:43 Humalog 300 Units/3 Ml Vial SC 2 unit .MILD SLIDING SCALE PRN Administration Mild Correctional Scale Insulin Human Lispro 0 units 08/30/20 01:38 09/14/20 22:21 Humalog 300 Units/3 Ml Vial SC 3 unit .BEDTIME SLIDING SC PRN Administration Bedtime Correctional Scale Insulin Human NPH 30 unit 09/12/20 08:30 09/17/20 20:34 Nph, Human Insulin Isophane 300 Unit/3 Ml Vial SC 30 unit BID INGRID Administration Pantoprazole Sodium 40 mg 09/11/20 09:00 09/18/20 09:14 Pantoprazole 40 Mg Granules Packet PO 40 mg DAILY INGRID Administration Propofol 1,000 mg 09/07/20 16:00 09/18/20 05:57 Propofol 1,000 Mg/100 Ml Vial IV 10/07/20 16:00 1,000 mg INF PRN Administration TO ACHIEVE GOAL RASS Protocol Sodium Chloride 10 ml 09/04/20 20:06 09/11/20 07:55 Flush - Normal Saline 10 Ml Syringe IVF 10 ml PRN PRN Administration Saline Flush Vecuronium [place] 10 mg 09/07/20 15:54 09/18/20 06:33 Vecuronium 10 Mg Vial IV 10 mg Q1H PRN Administration MOVEMENT Zinc Sulfate 220 mg 08/30/20 09:00 09/18/20 09:13 Zinc Sulfate 220 Mg Cap PO 220 mg DAILY INGRID Administration Hospitalist Exam Vitals: Vital Signs (12 hours) Temp Pulse Resp BP 09/18/20 08:00 98.6 F 09/18/20 07:19 90 138/71 09/18/20 04:00 30 H 09/18/20 00:00 30 H Weight Admit Weight 194 lb 12.8 oz Weight 3.457 oz Most Recent Monitor Data Heart Rate from ECG 85 NIBP 127/59 NIBP BP-Mean 81 Respiration from ECG 30 SpO2 90 General Appearance: NAD, ill appearing General - other findings: On ventilator Eye: anicteric sclera ENT: normocephalic atraumatic Neck: supple, symmetric, no JVD Heart: RRR, no murmur, no gallops Respiratory: no wheezes, no rales, no ronchi Gastrointestinal: soft, non-distended, normal bowel sounds Extremities: no clubbing, no edema Hosp A/P (1) Acute respiratory failure due to COVID-19 Code(s): U07.1 - COVID-19; J96.00 - ACUTE RESPIRATORY FAILURE, UNSP W HYPOXIA OR HYPERCAPNIA Status: Acute (2) Pneumonia due to 2019 novel coronavirus Code(s): U07.1 - COVID-19; J12.82 - PNEUMONIA DUE TO CORONAVIRUS DISEASE 2019 Status: Acute (3) Acute CVA (cerebrovascular accident) Code(s): I63.9 - CEREBRAL INFARCTION, UNSPECIFIED Status: Acute (4) Acute kidney failure Status: Acute (5) Hyperkalemia Code(s): E87.5 - HYPERKALEMIA Status: Acute (6) Thrombocytopenia Code(s): D69.6 - THROMBOCYTOPENIA, UNSPECIFIED Status: Acute (7) Diabetes type 2, controlled Code(s): E11.9 - TYPE 2 DIABETES MELLITUS WITHOUT COMPLICATIONS Status: Acute Qualifiers: Diabetes mellitus retirement insulin use: with retirement use Diabetes mellitus complication status: with kidney complications Chronic kidney disease stage: on chronic dialysis (8) Hypertension Code(s): I10 - ESSENTIAL (PRIMARY) HYPERTENSION Status: Chronic Qualifiers: Hypertension type: essential hypertension Qualified Code(s): I10 - Ess ential (primary) hypertension - Plan old records reviewed/req Patient is now DNR after discussion with the son, His prognosis extremely poor, he has not made any significant improvement over time, Palliative care is also on the case, will consider hospice on him, If family agrees and they consider withdrawal of care then that is best option for him as well. His prognosis extremely poor. Meanwhile continue provide symptomatic and supportive care
[2020-09-18] MEDS: NPH, Human Insulin Isophane 300 UNIT/3 ML VIAL SC SCH (11:54)
[2020-09-18 13:02] LABS: pH, Arterial 7.19 (7.35-7.45)
[2020-09-18 13:03] LABS: Puncture Site RRA
[2020-09-18 14:06] VITALS: TEMP 98.1
[2020-09-18 14:35] VITALS: BP 124/63
--- NOTE | 2020-09-18 15:21 | PDOC.PALPN ---
Palliative Progress Note - Subjective Intubated with mechanical ventilation - Objective Vital Signs: Vital Signs - Most Recent Temp Pulse Resp BP Pulse Ox 98.1 F 90 30 H 124/63 92 L 09/18/20 12:00 09/18/20 14:33 09/18/20 14:00 09/18/20 14:33 09/18/20 08:00 - Physical Exam Constitutional: encephalitic, ill appearing HEENT: moist MMs Respiratory: no wheezing, diminished lung sound Cardiovascular: no significant murmur, RRR, diminished peripheral pulses Gastrointestinal: soft, non-tender Genitourinary: garcia catheter Musculoskeletal: no cyanosis, no clubbing, no edema Neurology: no focal deficits Skin: cap refill <2 seconds, fragile Deviation from normal: sedated, encephalopathic - Assessment (1) Palliative care encounter Code(s): Z51.5 - ENCOUNTER FOR PALLIATIVE CARE Status: Acute (2) Acute CVA (cerebrovascular accident) Code(s): I63.9 - CEREBRAL INFARCTION, UNSPECIFIED Status: Acute (3) Acute kidney failure Status: Acute (4) Acute respiratory failure due to COVID-19 Code(s): U07.1 - COVID-19; J96.00 - ACUTE RESPIRATORY FAILURE, UNSP W HYPOXIA OR HYPERCAPNIA Status: Acute (5) Diabetes type 2, controlled Code(s): E11.9 - TYPE 2 DIABETES MELLITUS WITHOUT COMPLICATIONS Status: Acute Qualifiers: Diabetes mellitus residential insulin use: with adjunct faculty for medical terminology use Diabetes mellitus complication status: with kidney complications Chronic kidney disease stage: on chronic dialysis - Plan Plan: Met with son Gordo and patient spouse at bedside. Family understanding of prognosis and desire to seek comfort measures and compassionate extubation. Dr Payan and Dr Marks notified Case Management aware Spiritual care notified [45] minutes spent on this encounter with >50% of the time in counseling and coordination of care. - ROS Non Response: due to endotracheal tube, due to mental status
--- NOTE | 2020-09-18 16:11 | PRG ---
DATE OF SERVICE: 09/18/2020 SUBJECTIVE: The patient was seen at bedside. He remains intubated. No family members at the bedside. OBJECTIVE: GENERAL: This is a well-built male, intubated. VITAL SIGNS: Temperature 98.1, pulse 92, respiratory rate , blood pressure 124/63. HEENT: Intubated. CV: S1 and S2 heard. RESPIRATORY: Coarse breath sounds. GI: Abdomen is soft. MUSCULOSKELETAL: 1+ edema. DERMATOLOGIC: No skin rash. NEUROLOGIC: Intubated. LABORATORY DATA: Potassium 5.0, BUN is 57, creatinine is 5.7. ASSESSMENT AND PLAN: 1. Acute kidney injury on chronic kidney disease, stage 3, dialysis dependent. Potassium level is better. Would recommend reducing the potassium intake. 2. Hyperkalemia. We will continue dialysis. 3. History of COVID-19 infection. 4. Acute hypoxic respiratory failure. 5. Acidosis. 6. Hyponatremia. 7. Anemia. Rule out any bleed. Limit potassium intake. Need for dialysis today. Continue discussion with the family. We will follow. We will have dialysis per family wishes. Job ID: [id number]
--- NOTE | 2020-09-18 17:42 | PDOC.DS.DS ---
Provider Date of Admission: 08/28/20 20:18 Date of Discharge: 09/18/20 Admitting Provider: Gordo Machuca MD Consultations: Nephrology, Pulmonary Primary Care Physician: Zac Elaine MD Course Hospital Course: 65 year old male with PMH of DM, HTN who presents for cough, shortness of breath, weakness, body aches. Symptoms started 5 days ago, patient went to visit his mother w/ covid last Thursday then developed symptoms on Thursday, was diagnosed w/ covid then. He had cough, and has developed worsening shortness of breath w exertion and now at rest. Has been checking his oxygen at home and states that it was in the 70s. No nausea, vomiting, diarrhea. Also has loss of taste and smell. No history of blood clots. Does not smoke. In ED, WBC 6.2, Cr 1.45, glucose 267, CXR w/ ground glass opacities concerning for covid, CTA w/ similar findings and repeat imaging at follow up recommended. patinet admitted for further workup and care. Patient was admitted on August 28, 2020, patient had chest x-ray which was consistent with Covid pneumonia, CT angiography also showed Covid pneumonia, On September 04 patient developed acute stroke, patient also had a carotid Doppler which did not show any stenosis, CT brain showed areas of decreased attenuation in both frontal convexities, neurology was consulted, patient required intubation, general surgery was consulted for dialysis access because patient developed acute kidney failure, patient was getting maintenance hemodialysis through [facility], Patient also had a cardiac arrest requiring CPR and and the patient had successful resuscitation but patient developed anoxic brain injury, patient condition did not improve, palliative care was consulted and patient was finally made DNR and based on family request patient was compassionately extubated and transferred to hospice care. Resuscitation Status: 09/17/20 11:05 Resuscitation Status Routine Co-Sign Provider: Resuscitation Status: DNAR: NO Resuscitation Discussed with: Patient family Additional comments: Family elected to transition to DNAR status Lab Results: 09/18/20 04:45 09/18/20 04:45 Abnormal Lab Results - Last 48 hrs 09/14/20 14:18: ABG pH 7.19 L*, ABG pCO2 68.0 H*, ABG pO2 99.2 H, ABG O2 Content 16.8 L, ABG Base Excess -3.7 L, ABG Hematocrit 37.0 L, ABG Hemoglobin 12.5 L, ABG Deoxyhemoglobin 3.6 H, A-a O2 Gradient 528.800 H, Ionized Calcium 0.99 L 09/17/20 04:00: Potassium 6.1 H, Chloride 97 L, BUN 85 H, Creatinine 8.30 H 09/17/20 04:00: WBC 20.8 H, RBC 3.46 L, Hgb 10.8 L, Hct 32.8 L, MCH 31.3 H, Plt Count 127 L, Neutrophils % (Manual) 79 H, Band Neuts % (Manual) 16 H, Lymphocytes % (Manual) 5 L, Nucleated RBCs # (Man) 1 H 09/17/20 07:10: ABG pH 7.11 L*, ABG pCO2 84.9 H*, ABG pO2 82.7 H, ABG O2 Sat (Measured) 93.4 L, ABG O2 Content 12.9 L, ABG Base Excess -4.2 L, ABG Hematocrit 29.0 L, ABG Hemoglobin 9.8 L, ABG Oxyhemoglobin 92.5 L, A-a O2 Gradient 238.975 H, Sodium 131 L, Ionized Calcium 1.08 L, Potassium 5.98 H 09/18/20 04:45: Sodium 134 L, Chloride 95 L, BUN 57 H, Creatinine 5.74 H 09/18/20 04:45: WBC 12.0 H, RBC 2.88 L, Hgb 8.8 L, Hct 26.9 L, Plt Count 84 L, Neutrophils % (Manual) 81 H, Band Neuts % (Manual) 12 H, Lymphocytes % (Manual) 4 L, Plt Morphology Comment Appears Decreased L Microbiology - Entire Visit 09/03/20 03:09 Sputum Respiratory Culture - Final 08/28/20 19:48 Venous blood - Right Arm Blood Culture - Final NO GROWTH IN 5 DAYS 08/28/20 19:48 Venous blood - Left Arm Blood Culture - Final NO GROWTH IN 5 DAYS Vitals: Vital Signs (12 hours) Temp Pulse Resp BP Pulse Ox 09/18/20 14:33 90 124/63 09/18/20 14:00 30 H 09/18/20 12:00 98.1 F 30 H 09/18/20 10:41 83 127/59 L 09/18/20 10:00 30 H 09/18/20 08:00 98.6 F 30 H 92 L 09/18/20 07:19 90 138/71 Weight Admit Weight 194 lb 12.8 oz Weight 3.457 oz Most Recent Monitor Data Heart Rate from ECG 89 NIBP 149/66 NIBP BP-Mean 93 Respiration from ECG 30 SpO2 91 Physical Exam: The patient was seen and examined on the day of discharge. General Appearance: ill appearing Eye: PERRL ENT: normocephalic atraumatic Neck: supple, symmetric, no JVD Respiratory: no wheezes, no rales, no ronchi Cardiovascular: RRR, no murmur, no gallops Gastrointestinal: soft, non-distended, normal bowel sounds Extremities: no clubbing, no edema Problem (1) Acute respiratory failure due to COVID-19 Code(s): U07.1 - COVID-19; J96.00 - ACUTE RESPIRATORY FAILURE, UNSP W HYPOXIA OR HYPERCAPNIA Status: Acute (2) Pneumonia due to 2019 novel coronavirus Code(s): U07.1 - COVID-19; J12.82 - PNEUMONIA DUE TO CORONAVIRUS DISEASE 2019 Status: Acute (3) Acute CVA (cerebrovascular accident) Code(s): I63.9 - CEREBRAL INFARCTION, UNSPECIFIED Status: Acute (4) Acute kidney failure Status: Acute (5) Hyperkalemia Code(s): E87.5 - HYPERKALEMIA Status: Acute (6) Thrombocytopenia Code(s): D69.6 - THROMBOCYTOPENIA, UNSPECIFIED Status: Acute (7) Diabetes type 2, controlled Code(s): E11.9 - TYPE 2 DIABETES MELLITUS WITHOUT COMPLICATIONS Status: Acute Qualifiers: Diabetes mellitus fpc insulin use: with clearing tub worker use Diabetes mellitus complication status: with kidney complications Chronic kidney disease stage: on chronic dialysis (8) Hypertension Code(s): I10 - ESSENTIAL (PRIMARY) HYPERTENSION Status: Chronic Qualifiers: Hypertension type: essential hypertension Qualified Code(s): I10 - Essential (primary) hypertension Plan Home Medications: Medication Instructions Recorded Confirmed Type Dulaglutide [Trulicity] 1.5 mg SC Q7D 08/28/20 08/28/20 History Glimepiride [Amaryl] 4 mg PO BID-WM 08/28/20 08/28/20 History Lisinopril [Zestril] 10 mg PO DAILY 08/28/20 08/28/20 History Allergies: No Known Allergies Allergy (Verified 08/28/20 22:39) Activity:: No Restrictions Nourishment:: No Restrictions Therapies:: Not Applicable Equipment/Supplies:: Not Applicable IV Therapy:: Not Applicable Referrals: Hunter Orona MD [Active] - Zac Elaine MD [Primary Care Provider] - Disposition: [facility] Quality CORE MEASURES:: N/A
[2020-09-18] MEDS ORDERED: NPH, Human Insulin Isophane 300 UNIT/3 ML VIAL SC SCH (21:00)
--- NOTE | 2020-09-20 03:51 | PQF ---
CLINICAL DOCUMENTATION CLARIFICATION FORM: Dear : Buster Payan Date / Time: 09/20/2020 0798 Please exercise your independent, professional judgment in responding to the clarification form. Clinical indicators are provided on the bottom of this form for your review Please check appropriate box(es): [ ] Sepsis due to Covid 19 Pneumonia [ x ] Severe sepsis due to Covid 19 Pneumonia with Acute Respiratory Failure [ ] Septic Shock due to Covid 19 Pneumonia [ ] Localized infection without sepsis [ ] Other diagnosis, please specify [ ] Unable to determine In addition, please specify: Present on Admission (POA): [ x ] Yes [ ] No [ ] Unable to determine Physician Signature: Date/Time: For continuity of documentation, please document condition throughout progress notes and discharge summary. Thank You. To be completed by CDI/Coding staff for physician review: Present Clinical Indicators - Signs / Symptoms / Labs Results and Location in Medical Record [x] WBC 6.2; 4.4; 7.3, Plt count 135; 152; 198, Neutrophils 81.1; 76.7; 84.0, Lactic acid 1.6 Laboratory 08/28 [x] SARS Cov RNA: Detected Serology 08/28 [x] Blood culture: No growth Microbiology 08/28 [x] BP 155/85, Pulse 112, Resp 34, Temp 99.4 Vital signs 08/28 [x] presented with SOB H&P p1 08/28 Dr Machuca [x] Covid 19 pneumonia H&P p4 08/28 Dr Machuca [x] YA H&P p4 08/28 Dr Machuca [x] Acute respiratory failure H&P p4 08/28 Dr Machuca [x] Hypotension HPN p7 09/11 Dr Benavides [x] CT of chest: Extensive bilateral groundglass opacity CT of chest 08/28 [x] Acidosis PN 09/18 Present Risk Factors Results and Location in Medical Record [x] 65 year-old Male H&P p1 08/28 Dr Machuca [x] DM H&P p1 08/28 Dr Machuca [x] Covid 19 pneumonia H&P p4 08/28 Dr Machuca Present Treatments Results and Location in Medical Record [x] IV Remdesivir 200 mg OCT 15 [x] IVF NS 1L OCT 15 [x] IV Zosyn 3.375 gm OCT 15 [x] IV Levoped 250 mg OCT 15 [x] IV Cefriaxone 1 gm OCT 15 [x] Azithromycin 500 gm OCT 15 [x] Convalescent plasma Blood band 09/04 [x] Bipap Respiratory panel 09/05 [x] Mechanical ventilator Respiratory panel 09/07 [x] Sepsis Activation ED notes p2 08/28 [x] ID consult Dr Toro 08/29 [x] Respiratory consult Dr Marks 09/05 [facility] Signature: Carisa Cotton Phone #: ext [phone] Date/Time: 09/20/20 0350 This is a permanent part of the Medical Record [facility]
== END 2020-09-18 17:40 | disposition hospice, inpatient (51) | DRG 870 ==
LOC: ERS 17:39 → 2SW 20:18 → CCU 09-05 08:01
PROVIDERS: ADMIT Internal Medicine; ATTEND Internal Medicine
PROC: 8E0ZXY6 Isolation (ICD-10-PCS; 2020-08-28)
PROC: XW033E5 Introduction of Remdesivir Anti-infective into Peripheral Vein, Percutaneous Approach, New Technology Group 5 (ICD-10-PCS; 2020-08-29)
PROC: XW13325 Transfusion of Convalescent Plasma (Nonautologous) into Peripheral Vein, Percutaneous Approach, New Technology Group 5 (ICD-10-PCS; principal; 2020-09-04)
PROC: 5A09457 Assistance with Respiratory Ventilation, 24-96 Consecutive Hours, Continuous Positive Airway Pressure (ICD-10-PCS; 2020-09-05)
PROC: 5A1955Z Respiratory Ventilation, Greater than 96 Consecutive Hours (ICD-10-PCS; 2020-09-07)
PROC: 0BH17EZ Insertion of Endotracheal Airway into Trachea, Via Natural or Artificial Opening (ICD-10-PCS; 2020-09-07)
PROC: 3E033XZ Introduction of Vasopressor into Peripheral Vein, Percutaneous Approach (ICD-10-PCS; 2020-09-08)
PROC: 5A1D70Z Performance of Urinary Filtration, Intermittent, Less than 6 Hours Per Day (ICD-10-PCS; 2020-09-08)
PROC: 5A12012 Performance of Cardiac Output, Single, Manual (ICD-10-PCS; 2020-09-08)
PROC: 06HY33Z Insertion of Infusion Device into Lower Vein, Percutaneous Approach (ICD-10-PCS; 2020-09-08)
DX: A41.89 Other specified sepsis (principal); U07.1 COVID-19; J96.01 Acute respiratory failure with hypoxia; J12.82 Pneumonia due to coronavirus disease 2019; I46.9 Cardiac arrest, cause unspecified; I63.431 Cerebral infarction due to embolism of right posterior cerebral artery; N18.6 End stage renal disease; N17.9 Acute kidney failure, unspecified; G93.1 Anoxic brain damage, not elsewhere classified; E87.1 Hypo-osmolality and hyponatremia; G81.91 Hemiplegia, unspecified affecting right dominant side; D68.59 Other primary thrombophilia; E87.2 Acidosis; I12.0 Hypertensive chronic kidney disease with stage 5 chronic kidney disease or end stage renal disease; R65.20 Severe sepsis without septic shock; Z66 Do not resuscitate; Z51.5 Encounter for palliative care; R29.707 NIHSS score 7; E11.22 Type 2 diabetes mellitus with diabetic chronic kidney disease; E11.65 Type 2 diabetes mellitus with hyperglycemia; D63.1 Anemia in chronic kidney disease; E87.5 Hyperkalemia; I95.9 Hypotension, unspecified; D69.6 Thrombocytopenia, unspecified; Z83.1 Family history of other infectious and parasitic diseases; Z28.21 Immunization not carried out because of patient refusal; Z78.1 Physical restraint status; Z79.899 Other long term (current) drug therapy; Z79.84 Long term (current) use of oral hypoglycemic drugs; Z83.3 Family history of diabetes mellitus
CPT/HCPCS: 36415; 36416; 36430; 36600; 70450; 71045; 71275; 80048; 80053; 80061; 80069; 80076; 82805; 83036; 83605; 83735; 84484; 85007; 85025; 85027; 85379; 85610; 85652; 85730; 86140; 86704; 86706; 86803; 86850; 86900; 86901; 87040; 87070; 87205; 87340; 90935; 92950; 93005; 93306; 93880; 94002; 94003; 94660; 94760; 96365; 96367; 96372; G0257; J0171; J0456; J0696; J1100; J1642; J1644; J1650; J1815; J2060; J2270; J2543; J2704; J3010; J3490; J7050; P9017; P9047; Q9967; S0028

== ENCOUNTER 2020-09-18 17:49 | Inpatient (IN) | payer OTHER ==
[2020-09-18] MEDS ORDERED: Acetaminophen 325 MG TAB PO PRN (17:51)
[2020-09-18] MEDS ORDERED: Morphine 2 MG/ML VIAL SLOW IVP PRN (17:51)
[2020-09-18] MEDS ORDERED: Acetaminophen 650 MG Suppository PR PRN (17:52)
[2020-09-18] MEDS ORDERED: Morphine 4 MG/ML VIAL SLOW IVP PRN (17:52)
[2020-09-18] MEDS ORDERED: diphenhydrAMINE 25 MG CAP PO PRN (17:52)
[2020-09-18] MEDS ORDERED: diphenhydrAMINE 50 MG/ML VIAL IVP PRN (17:53)
[2020-09-18] MEDS ORDERED: Haloperidol 1 MG TAB PO PRN (17:54)
[2020-09-18] MEDS ORDERED: Lorazepam 2 MG/ML VIAL SLOW IVP PRN (17:54)
[2020-09-18] MEDS ORDERED: Haloperidol Lactate 5 MG/ML VIAL SLOW IVP PRN (17:55)
== END 2020-09-18 18:37 | disposition expired | DRG 951 ==
LOC: CCU 17:49
PROVIDERS: ADMIT Internal Medicine Nephrology; ATTEND Internal Medicine Nephrology
DX: Z51.5 Encounter for palliative care (principal); J96.01 Acute respiratory failure with hypoxia; J12.82 Pneumonia due to coronavirus disease 2019; U07.1 COVID-19; I63.9 Cerebral infarction, unspecified; N17.9 Acute kidney failure, unspecified; Z66 Do not resuscitate; I10 Essential (primary) hypertension; E11.9 Type 2 diabetes mellitus without complications; E87.5 Hyperkalemia; D69.6 Thrombocytopenia, unspecified; Z79.899 Other long term (current) drug therapy